=== PATIENT | female | born 1950 | race Caucasian/White ===

== ENCOUNTER → 2018-01-03 12:04 | Outpatient (CLI) | payer MEDICARE, MEDICAID, SELFPAY ==
--- NOTE | 2018-01-03 12:14 | RAD_ITS ---
STUDY: X-RAY - PELVIS AND LEFT HIP REASON FOR EXAM: Female, 67 years old. Left hip pain for several months. TECHNIQUE: Radiological exam, hip, unilateral, with pelvis when performed; 2 or 3 views. COMPARISON: None. FINDINGS: There is a non-specific bowel gas pattern. Normal visualized soft tissue structures. Normal bilateral iliac wings, sacroiliac joints and visualized sacrum. Normal bilateral superior and inferior pubic rami. Normal pubic symphysis. Normal bilateral ischial tuberosities. There is mild medial arthrosis of both hips. RAD/Hip 2-3 Views with Pelvis IMPRESSION: Mild arthrosis of both hips. Electronically Signed: Ari Block MD at 17:35 EST , Service support ,
--- NOTE | 2018-01-03 12:14 | RAD_ITS ---
STUDY: X-RAY - LUMBAR SPINE REASON FOR EXAM: Female, 67 years old. Low back pain. Left leg pain. TECHNIQUE: 5 view(s) of the lumbar spine were obtained. COMPARISON: None FINDINGS: Normal lumbar lordosis. There is grade 1 anterior listhesis at L4-5. There is a dextroscoliosis of the lumbar spine. There is no fracture. There is multilevel endplate spondylosis of the lumbar vertebrae. Disc space narrowing at L4-5. There is no demonstrated fracture. The soft tissue structures are unremarkable. RAD/L/S Spine Min 4 Views IMPRESSION: Degenerative changes of the spine, as detailed above. Electronically Signed: Efrain Fischer MD at 23:26 EST , Service support ,
== END ==
DX: M25.552 Pain in left hip (principal)
CPT/HCPCS: 72100; 72110; 73502

== ENCOUNTER 2018-03-20 11:00 | Outpatient (RCR) | payer MEDICARE, MEDICAID, SELFPAY ==
--- NOTE | 2018-01-30 13:20 | HP.PTEVAL_ITS ---
Patient's Visit Information CATRINA EM is a 67 year old F referred to Physical Therapy by DENIS Cortes PA.LUCILLEHEN with a diagnosis of SPONDYLOLISHESIS ,LUMBAR , RADICULOPATHY LUMBAR ,BILATERAL OA HIPS. Date of Evaluation: 01/30/18 Physical Therapist: Fausto Tobar, PT, - Visit Plan Frequency: 3x /Week Duration: 3 Weeks Plan: Aquatic PT for lumbar ROM ,postural ex's,DLS , LE strengthening,ROM - Subjective Subjective: THIS 67 y/o female presents to physical therapy with lumbar pain with radicular symptoms in left leg. Patient stated symptoms started about 6 months ago with pain and weakness left leg which has progressivly became worse in the past 3 months. Patient pain affect ability to walk and needed to use cane. Symptoms located symmtrical lumbar worse in leftr leg posterior aspect to anterior tibia. Thise symptoms described as ache and parathesia/tingling in leg. Symptoms worse worse with walking standing less than 5min,unable to do stairs,lifting,bending. Symptoms better with rest and sitting. Pain affects sleeping. Coughing /sneezing -. Pain affects qulaity of life to include housework chores.Intially ,patient seen family DR ,did x-rays which showed OA of hip. Recommended to see ortho consult with x-rays showed spondylothesis. SOCAIL : . VOCATION: retired - Pain Bilateral Back Pain Intensity (Out of 10): 8 Pain Intensity Range: 10 Left Lower Extremity Pain Intensity (Out of 10): 8 Pain Intensity Range: 10 - Objective POSTURE: mild foward posture,hips knees flexed. PALAPTION: tender L-S region. NEURO: c/o paratrhesia/tingling ,reflexes L3-4,L4-5,L5-S1 2/3,. SYMMTRIES: WFL. MMT: bilateral hips flexion/abd 3+/5,quads/hams 4-/5 ,ankle 4/5. LUMBAR ROM: flexion mod loss pain.extsnsion mod/severe loss pain ,side glides mod loss. FLEXABLITY : hams min loss. AROM: knee flexion 0-130 ,hip flexion 100 degrees ,ER 60,IR 50 - Goals Goal 1:: Independant with Aquatic PT Goal Time Frame: 4-6 Weeks Goal 2:: Improve posture for ADL'S Goal Time Frame: 4-6 Weeks Goal 3:: Patient decrease lumbar pain and radicular symptoms left leg by 50% or greater to improve function with walking and standing greater than 5 min's Goal Time Frame: 4-6 Weeks Goal 4:: Patient increase strength BLE hips 4-/5,quads/hams 4/5 to improve function Goal Time Frame: 4-6 Weeks Goal 5:: Patient be able to perform ADL'S and housework tasks with mod limiations with asend/descendinf steps safely. Goal Time Frame: 4-6 Weeks - Rehabilitation Potential Physical Therapy Diagnosis: This 67 y/o female presents to physical therapy with lumbar pain with radicular symptoms in leg left ,weakness ,decrease lumbar ROM ,impairs gait and needs cane due to unable to walk or stand less than 5min. Rehabilitation Potential: Fair - Anticipated Interventions Patient/Client Instruction: Educate patient on: Condition, Plan of Care For the Purpose of:: To decrease pain, To increase ROM, To improve muscle performance and motor function, To improve ability to perform ADL's, To increase tolerance to activity/condition/position, To improve performance and independence with ADL's, To improve ability of physical actions for home/ community/work/leisure, To improve health of tissue, To decrease soft tissue restriction, To increase flexibility/ROM, To reduce risk of recurrence, To foster healthy habits, To prevent re-injury, To improve ability to perform tasks related to life management Therapeutic Exercise to Include: Strength training, Postural training, Flexibilty training, In an aquatic setting, Dynamic Lumbar Stabilization For the Purpose of:: To decrease pain, To increase ROM, To improve muscle performance and motor function, To improve ability to perform ADL's, To increase tolerance to activity/condition/position, To improve ability of physical actions for home/community/work/leisure, To improve health of tissue, To decrease soft tissue restriction, To increase flexibility/ROM, To reduce risk of recurrence, To prevent re-injury, To improve ability to perform tasks related to life management Thank you for the opportunity to evaluate your patient. For Medicare and Medicare HMO plans, please review the plan of care and approve it. It will need to be FAXED BACK to us at [phone] for Medicare purposes. Please let me know if there are questions or concerns regarding this plan of care. Physician Signature: Date:
--- NOTE | 2018-02-27 12:31 | HP.PTREVAL_ITS ---
DENIS Cortes, It has been my pleasure to treat CATRINA EM over the last 8 visits for SPONDYLOLISHESIS ,LUMBAR ,RADICULOPATHY LUMBAR ,BILATERAL OA HIPS. Please see the progress note below for an update on the physical therapy plan of care! Subjective: Water ex's helped with managing pain walking further distances and stand 5 min. Able to do ADL'S Objective/Function: POSTURE: mild foward posture. GAIT: ambulates with cane antalgic slow decrease stance time left to right. LUMBAR ROM: flexion mod loss, extension mod /severe loss. MMT: quads/hams RIGHT 4-/5,LEFT 3+/5,HIP FLEXION 3+ /5,ANKLE 4-/5. + SLR. + LUMBAR QUADRANT. side glides mod loss Plan Plan: cont wity poc 5x Goals Goal 1:: Independant with Aquatic PT Goal Time Frame: 4-6 Weeks Goal Progress: Progressing Goal 2:: Improve posture for ADL'S Goal Time Frame: 4-6 Weeks Goal Progress: Progressing Goal 3:: Patient decrease lumbar pain and radicular symptoms left leg by 50% or greater to improve function with walking and standing greater than 5 min's Goal Time Frame: 4-6 Weeks Goal Progress: Progressing Goal 4:: Patient increase strength BLE hips 4-/5,quads/hams 4/5 to improve function Goal Time Frame: 4-6 Weeks Goal Progress: Progressing Goal 5:: Patient be able to perform ADL'S and housework tasks with mod limiations with asend/descendinf steps safely. Goal Time Frame: 4-6 Weeks Goal Progress: Progressing Anticipated Interventions Patient/Client Instruction: Educate patient on: Condition, Plan of Care For the Purpose of:: To decrease pain, To increase ROM, To improve muscle performance and motor function, To improve ability to perform ADL's, To increase tolerance to activity/condition/position, To improve performance and independence with ADL's, To improve ability of physical actions for home/ community/work/leisure, To improve health of tissue, To decrease soft tissue restriction, To increase flexibility/ROM, To reduce risk of recurrence, To foster healthy habits, To prevent re-injury, To improve ability to perform tasks related to life management Therapeutic Exercise to Include: Strength training, Postural training, Flexibilty training, In an aquatic setting, Dynamic Lumbar Stabilization For the Purpose of:: To decrease pain, To increase ROM, To improve muscle performance and motor function, To improve ability to perform ADL's, To increase tolerance to activity/condition/position, To improve ability of physical actions for home/community/work/leisure, To improve health of tissue, To decrease soft tissue restriction, To increase flexibility/ROM, To reduce risk of recurrence, To prevent re-injury, To improve ability to perform tasks related to life management Please do not hesitate to contact me at [phone] by phone or Fax: if you have questions or concerns regarding this new plan of care! Sincerely, Fausto Tobar, PT,
--- NOTE | 2018-03-20 11:55 | HP.PTDCSUM_ITS ---
HP - PT D/C Summary It has been my pleasure to treat CATRINA EM under orders from DENIS Cortes, for the diagnosis of SPONDYLOLISHESIS ,LUMBAR ,RADICULOPATHY LUMBAR ,BILATERAL OA HIPS for a total of 12 visit(s). Discharge Date: 03/20/18 Please see the following information for a summary of their discharge status. - Subjective Subjective: Patient aquatic ex's helped while in water but returns . Ambulated with cane. Symmtrical left right L-S ,below right knee. Difficuly with ADL'S and houseworK,getting Out of tube. Linmited gait with walking.For example use cart when waking in [employer]. - Pain Bilateral Back Pain Intensity (Out of 10): 8 Left Lower Extremity Pain Intensity (Out of 10): 0 RLE Pain Intensity (Out of 10): 8 - Overall Improvement % Improvement: 40 - Objective Objective/Function: POSTURE: mild foward posture. GAIT: ambulates cane anatlgic gait mild foward posture. NEURO: denies parathesia/tingling. MMT: quads/hams 3+/5,hip 3/5,ankle 4-/5 right,left 4-/5. LUMBAR ROM: mod loss pain, extension severe loss pain,side glides mod pain bilateral. AROM: hip AROM 90 DEGREES ,ER 20 DEGREES. - Goals Goal 1:: Independant with Aquatic PT Goal Progress: Progressing Goal 2:: Improve posture for ADL'S Goal Progress: Progressing Goal 3:: Patient decrease lumbar pain and radicular symptoms left leg by 50% or greater to improve function with walking and standing greater than 5 min's Goal Progress: Progressing Goal 4:: Patient increase strength BLE hips 4-/5,quads/hams 4/5 to improve function Goal Progress: Progressing Goal 5:: Patient be able to perform ADL'S and housework tasks with mod limiations with asend/descendinf steps safely. Goal Progress: Progressing - Plan Plan: D/C RTD - D/C Information Discharge Comments: D/C RTW If there are questions or concerns regarding this patient's physical therapy, please feel free to call me at [phone]. Thank you for the referral of this patient. Sincerely, Fausto Tobar, PT,
== END 2018-03-20 19:00 | disposition home or self-care (01) ==
LOC: PT 11:00
PROVIDERS: Visit Provider Physician Assistant Surgical
DX: M43.16 Spondylolisthesis, lumbar region (principal); M54.16 Radiculopathy, lumbar region; M16.0 Bilateral primary osteoarthritis of hip
CPT/HCPCS: 97113; 97162; 97530

== ENCOUNTER → 2018-09-08 10:00 | Outpatient (CLI) | payer MEDICARE, MEDICAID, SELFPAY ==
--- NOTE | 2018-09-08 15:59 | EKG12_ITS ---
Test Reason : Blood Pressure : / mmHG Vent. Rate : 072 BPM Atrial Rate : 072 BPM P-R Int : 216 ms QRS Dur : 062 ms QT Int : 396 ms P-R-T Axes : 034 -02 040 degrees QTc Int : 433 ms Sinus rhythm with 1st degree A-V block Abnormal ECG Confirmed by LESLYE MORGAN ([id number]), production editor SONIA CORDON ([id number]) on 09/11/2018 2:14:46 PM Referred By: Aida Choi Confirmed By:LESLYE MORGAN
[2018-09-08 16:59] LABS: Hematocrit 40.5 % (37-47); Hemoglobin 13.3 g/dl (12.0-15.0); Mean Corp Hgb Conc 32.8 g/gl (32-36); Mean Corpuscular Hgb 28.8 pg (27.0-32.0); Mean Corpuscular Volume 87.7 fL (81-99); Platelet Count 331 K/mm3 (150-450); RBC Distribution Width CV 13.3 % (11.6-14.6); RBC Distribution Width SD 42.3 fl (35.1-43.9); Red Blood Count 4.62 M/mm3 (4.2-5.4); White Blood Count 8.2 K/mm3 (4.4-11.0)
[2018-09-08 17:01] LABS: Scan Indicated on CBC? Y/N NO
[2018-09-08 17:49] LABS: Anion Gap 10 (5-15); BUN 21 mg/dL (7-18); BUN/Creat Ratio 23.8 RATIO (10-20); Chloride 97 mmol/L (98-107); Creatinine, Serum 0.88 mg/dL (0.55-1.02); EST Glomerular Filtration Rate 68 mL/min (>60); Est Glom Filt Rate - Afr Amer 82 mL/min (>60); Glucose 403 mg/dL (74-106); Potassium 3.3 mmol/L (3.5-5.1); Sodium Level 135 mmol/L (136-145)
[2018-09-08 18:05] LABS: Hemoglobin A1c 12.4 % (4.2-6.3)
--- NOTE | 2018-09-12 21:57 | PCM.HP.BLA ---
History and Physical DATE OF SURGERY: 09/14/2018 SCHEDULED PROCEDURE: Open reduction internal fixation right ankle HISTORY OF PRESENT ILLNESS: This is a 68-year-old female who fell and injured her bilateral ankles on September 05, 2018. Patient states she was on her porch when she sprained her left ankle and fractured her right ankle. [facility] by Dr. Aida Choi. Patient was placed in immobilization and it was recommended to undergo an open reduction internal fixation of her right ankle fracture. Patient denies previous trauma or injury. She denies any numbness tingling. Patient states her pain as a 6/10. Patient has a medical history pertinent for type 2 diabetes mellitus, hypertension. She denies any recent chest pain, shortness of breath, fevers chills, or recent infections. Patient currently is nonweightbearing on her right lower extremity due to the fracture. We are obtaining surgical clearance from patient's primary care physician. After discussion with Dr. Aida Choi, the patient would like to proceed with a right ankle open reduction internal fixation. REVIEW OF SYSTEMS: ROS: Const: Denies change in appetite, fever,or weight change. CV: Denies chest pain, heart murmur and irregular heartbeat. Resp: Denies cough, pneumonia, SOB, tuberculosis and wheezing. GI: Denies constipation, diarrhea, difficulty swallowing, heartburn, nausea, bloody stools and vomiting. : Urinary: reports incontinence. Musculo: Reports limp, trouble walking and weakness, but denies leg swelling. Skin: Denies Raynaud's, history of shingles and tattoo. Neuro: Reports ambulatory dysfunction and numbness/tingling but denies dizziness and tremor. Psych: Reports anxiety and stress, but denies insomnia. Pan/Lymph: Denies anemia, bleeding/bruising tendency and past transfusion. Reviewed, no changes. PAST MEDICAL HISTORY: Advance Care Plan: No Advance Directives Effective Date: 01/18/2018 PMH: Medical Problems: Arthritis, Diabetes, High Blood Pressure, Vision Problems/Blind, Hypercholesterolemia Accidents: None Surgical Hx: Section Anesthesia Complications: None Assistive Devices: Glasses Reviewed, no changes. SOCIAL HISTORY: SH: Marital: Single.Occupation: Currently Working.Work Status: Currently Working.Hand Dominance: Left-handed. Personal Habits: Cigarette Use: Never Smoked Cigarettes.Alcohol: Denies use.Drug Use: Denies Use.Enjoy Exercising: Never Exercises. Reviewed, no changes. VITALS: Ht: 62.5 Wt: 150lb Wt k.040 BMI: 27.0 BP: 108/70 Pulse: 70 Resp: 16 T: 97.8 T: 36.6C ALLERGIES: No Known Drug Allergy MEDICATIONS: Tramadol HCL 50 mg 1 by mouth every 4 hours as needed pain, Lisinopril 40 mg 1 by mouth every day, Metformin HCL 1000 mg 1 by mouth twice a day, Atenolol 50 mg 1 tab PO daily, Levemir Flextouch 100 Unit/ML 15 units sq qpm, Hydrochlorothiazide 25 mg 1 tab PO daily, Pravastatin Sodium 10 mg 1 tab PO daily PRE-OP EXAM: General appearance:NORMAL Other: Eyes: Conjunctivae and lids: NORMAL Pupils: ERR Ears, Nose, Mouth, and Throat: NORMAL Other: Inspection of lips, teeth and gums: NORMAL Other: Neck: Examination of neck: no masses noted. Respiratory: Assessment of respiratory effort: NORMAL Other: Auscultation of lungs: clear to auscultation no wheezes, rhonchi or rales. Cardiovascular: Auscultation of heart: regular rate and rhythm, no murmurs, gallops or rubs. Exam of carotid arteries: NORMAL Other: Gastrointestinal: Exam of abdomen: soft, nontender, nondistended bowel sounds present. PHYSICAL EXAMINATION: Patient is currently immobilized with regards to her right ankle/foot. Sensation intact to the toes. Capillary refills less than 2 seconds. There is no tenderness to palpation Right knee. Full range of motion right knee. For detailed examination, please see Dr. Aida Choi's dictated note. Patient currently immobilized after fracture and this was not taken down at preop visit. IMAGING STUDIES: X-rays from [facility] were obtained on September 06, 2018 of the right ankle including 3 views reveals a displaced Melendez B distal fibula fracture with medial clear space widening. No other fractures were appreciated. IMPRESSION: 1. Displaced right ankle distal fibula fracture 2. Left ankle sprain 3. Type 2 diabetes mellitus 4. Hypertension 5. Hypercholesterolemia PLAN: Dr. Aida Choi did discuss and review with the patient all treatment options including surgical versus nonsurgical options. Patient does wish to proceed with the above-stated procedure. Potential risks, benefits, and complications of the procedure were discussed in detail including but not limited to , infection, nerve and blood vessel damage, persistent pain, numbness, tingling, paresthesias, blood clot, pulmonary embolism, and requirement for possible further surgery. The patient expressed full understanding and has no further questions for the doctor. Patient does agree to proceed with the above-stated procedure and has signed the surgery consent form. This dictation was created using voice recognition software. Phonetic and/or grammatical errors may exist.. ___ I have re-examined the patient. There are no clinical changes since date of exam. ___ See progress notes for changes. ___ Dictated on admission Date: Time: Signature:
== END ==
PROVIDERS: Referring Provider Podiatrist Foot & Ankle Surgery; Visit Provider Podiatrist Foot & Ankle Surgery
DX: Z01.818 Encounter for other preprocedural examination (principal); S82.831A Other fracture of upper and lower end of right fibula, initial encounter for closed fracture; S93.402A Sprain of unspecified ligament of left ankle, initial encounter; E11.9 Type 2 diabetes mellitus without complications; E78.00 Pure hypercholesterolemia, unspecified; I10 Essential (primary) hypertension; W17.89XA Other fall from one level to another, initial encounter; Y93.89 Activity, other specified; Y92.008 Other place in unspecified non-institutional (private) residence as the place of occurrence of the external cause; Y99.8 Other external cause status
CPT/HCPCS: 36415; 80048; 83036; 85027; 93005

== ENCOUNTER 2018-10-03 17:19 | Inpatient (IN) | payer MEDICARE, MEDICAID, SELFPAY ==
[2018-09-15 08:22] VITALS: BMI 25.7
[2018-10-03] VITALS (15 sets, daily range): BP systolic 74–179; BP diastolic 59–100; PULSE 54–75; RESP 16–18; TEMP 36.3–37.1; O2SAT 95–100; BMI 25.7
--- NOTE | 2018-10-03 11:35 | EKG12_ITS ---
Test Reason : PRE OP Blood Pressure : / mmHG Vent. Rate : 066 BPM Atrial Rate : 066 BPM P-R Int : 202 ms QRS Dur : 084 ms QT Int : 422 ms P-R-T Axes : 040 016 053 degrees QTc Int : 442 ms Normal sinus rhythm Normal ECG Confirmed by ARIN CARSON, SANAZ ([id number]), web content editor SONIA CORDON ([id number]) on 10/05/2018 3:23:56 PM Referred By: Aida Choi Confirmed By:SANAZ HINKLE MD
[2018-10-03 12:08] LABS: Hematocrit 38.1 % (37-47); Hemoglobin 12.7 g/dl (12.0-15.0); Mean Corp Hgb Conc 33.3 g/gl (32-36); Mean Platelet Vol. 10.2 fl (6.2-12.0); Platelet Count 267 K/mm3 (150-450); RBC Distribution Width CV 12.5 % (11.6-14.6); Red Blood Count 4.38 M/mm3 (4.2-5.4); Scan Indicated on CBC? Y/N NO; White Blood Count 6.9 K/mm3 (4.4-11.0)
[2018-10-03 12:20] LABS: Bedside Glucose 115 mg/dL (70-110)
[2018-10-03 12:22] LABS: Anion Gap 7 (5-15); BUN 15 mg/dL (7-18); BUN/Creat Ratio 30.2 RATIO (10-20); Calcium,Total 8.9 mg/dL (8.5-10.1); Chloride 105 mmol/L (98-107); EST Glomerular Filtration Rate 132 mL/min (>60); Est Glom Filt Rate - Afr Amer 160 mL/min (>60); Estimated Creatinine Clearance 47.14 ml/min; Glucose 129 mg/dL (74-106); Hemoglobin A1c 10.7 % (4.2-6.3); Potassium 3.3 mmol/L (3.5-5.1); Sodium Level 141 mmol/L (136-145)
[2018-10-03] MEDS: Cefazolin 2 GM in 0.9% Normal Saline 100 ML IV (12:53)
--- NOTE | 2018-10-03 13:00 | RAD_ITS ---
STUDY: Fluoroscopic intraoperative images RIGHT ANKLE REASON FOR EXAM: Female, 68 years old. Of reduction internal fixation TECHNIQUE: 8 view(s) of the ankle. COMPARISON: None. FINDINGS: Fluoroscopic intraoperative images 8 images of the right ankle during open reduction internal fixation. There is a side plate cortical screws transfixing the fibula to cortical screws transfixing the medial malleolus. Fluoroscopy time recorded 102.7 seconds. RAD/Ankle 2 Views IMPRESSION: Fluoroscopic imaging of the right ankle during open reduction internal fixation. Electronically Signed: Georgina Brian MD at 19:54 EST Tel , Service support ,
--- NOTE | 2018-10-03 15:41 | RAD_ITS ---
STUDY: X-RAY - RIGHT ANKLE REASON FOR EXAM: Female, 68 years old. [Right ankle TECHNIQUE: 3 view(s) of the ankle. COMPARISON: None. FINDINGS: There are 2 cortical screws transfixing the medial malleolus. There is a side plate and cortical screw transfixing the distal fibula. There is mild soft tissue swelling and subcutaneous gas. Normal visualized talus and calcaneus. The visualized subtalar, talonavicular, calcaneocuboid and tarsal articulations are normal. The soft tissue structures are unremarkable. RAD/Ankle min 3 Views IMPRESSION: Status post open reduction internal fixation of the right ankle. Electronically Signed: Georgina Brian MD at 16:48 EST Tel , Service support ,
--- NOTE | 2018-10-03 15:47 | PCM.IMDPSTOP ---
Immediate Post-Op Note Date of Procedure: 10/03/18 Primary Surgeon/Physician: Aida Choi DPM green building materials distributor: Kapil Cuellar Pre-Operative Diagnosis: R bimalleolar ankle fx Post-Operative Diagnosis: same Surgery/Procedure Performed:: R ankle ORIF Description of Surgical Findings:: see dictation Estimated Blood Loss: minimal Specimen's removed: none Drains: none Type of Anesthesia:: General/Regional - Admit VTE Documentation VTE Present on Admission: No VTE Mechan Device Prophylaxis: SCD's, Knee High SPRING Hose VTE Pharm Prophylaxis ordered?: Yes
--- NOTE | 2018-10-03 15:51 | OP.PN_ITS ---
Immediate Post-Op Note Date of Procedure: 10/03/18 Primary Surgeon/Physician: Aida Choi DPM promotional representative: Kapil Cuellar Pre-Operative Diagnosis: R bimalleolar ankle fx Post-Operative Diagnosis: same Surgery/Procedure Performed:: R ankle ORIF Description of Surgical Findings:: see dictation Estimated Blood Loss: minimal Specimen's removed: none Drains: none Type of Anesthesia:: General/Regional - Admit VTE Documentation VTE Present on Admission: No VTE Mechan Device Prophylaxis: SCD's, Knee High SPRING Hose VTE Pharm Prophylaxis ordered?: Yes
[2018-10-03 16:11] LABS: Bedside Glucose 77 mg/dL (70-110)
--- NOTE | 2018-10-03 17:02 | HP.PCM_ITS ---
History of Present Illness Date of Admission: 10/03/18 Chief Complaint: right ankle fracture s/p ORIF The patient is a 68 year old F with a PMH of diabetes and hypertension. She was admitted for ORIF of a right ankle fracture. Today is POD 0. She was was admitted after surgery as she could not be placed in the Inpatient Rehab Unit until she had been inpatient for a few days. Patient francis nd examined in the PACU. She had no complaints and pain was well controlled. She denied any fever, chills, cough, chest pain, SOB, abdominal pain, diarrhea or vomiting. Review of systems was otherwise negative. She says her blood sugar is usually in the 200s and 300s at home. Her insulin dose was recently increased from 15IU to 20IU by her PCP one week ago. [] Past Medical History Past Medical History (Chronic Problems): Chronic Problems (Last Reviewed 09/15/18 @ 08:34 by Harshal Chung MD) Essential (primary) hypertension (Chronic) Type 2 diabetes mellitus (Chronic) Medical History: Medical History (Last Reviewed 09/15/18 @ 08:34 by Harshal Chung MD) Essential (primary) hypertension (Chronic) I10 Type 2 diabetes mellitus (Chronic) E11.9 Arthritis M19.90 Hyperlipidemia E78.5 Allergies No Known Drug Allergies Allergy (Unknown, Verified 10/02/18 10:19) Other Home Medications: Ambulatory Orders Medication Instructions Recorded Hydrochlorothiazide [Hctz] 25 mg PO DAILY #14 tab 02/20/16 Lisinopril [Zestril] 40 mg PO DAILY 02/20/16 aspirin 81 mg tablet,delayed 81 mg PO DAILY 09/15/18 release metformin 1,000 mg tablet 500 mg PO BID 09/15/18 pravastatin 10 mg tablet 10 mg PO DAILY 09/15/18 tramadol 50 mg tablet 50 mg PO Q6H 09/15/18 Atenolol [Tenormin] 25 mg PO DAILY 10/02/18 Insulin Detemir [Levemir (BKC)] 20 units SC QHS 10/02/18 Meloxicam [Mobic] 7.5 mg PO BID 10/02/18 glyBURIDE [Micronase] 10 mg PO DAILY@0800 10/02/18 Surgical History: Surgical History (Last Reviewed 09/15/18 @ 08:34 by Harshal Chung MD) History of Z98.891 Surgical History: no surgical history Psychiatric History: No pertinent psych hx Lives: With Family Smoking Status: Never smoker Tobacco Use: Non-smoker Alcohol: None Drugs: None - *Family History Maternal Family History: Family History (Last Reviewed 09/15/18 @ 08:34 by Harshal Chung MD) Mother Heart disease Brother Myocardial infarction History Items: No pertinent history Paternal Family History: Family History (Last Reviewed 09/15/18 @ 08:34 by Harshal Chung MD) Mother Heart disease Brother Myocardial infarction History Items: No pertinent history Review of Systems Constitutional: Denies: Chills, Fever, Weight Change Eyes: Denies: Blurred vision HEENT: Denies: Head Aches, Sinus Congestion, Sinus Drainage Cardiovascular: Denies: Chest Pain, Palpitations Respiratory: Denies: Cough, Shortness of Breath, Shortness of breath at rest, Sputum production Gastrointestinal: Denies: Abdominal Pain, Nausea, Vomiting Genitourinary: Denies: Dysuria Musculoskeletal: Denies: Joint Pain, Joint Tenderness Skin: Denies: Rash, Wounds Neurological: Denies: Numbness, Tingling, Focal weakness Psychiatric: Denies: Anxiety, Depression, Homicidal Ideations, Suicidal Ideations Hematologic/ Lymphatic: Denies: Easy Bruising, Easy Bleeding VTE Information - Inpt Only VTE Present on Admission: No VTE Mechan Device Prophylaxis: SCD's VTE Pharm Prophylaxis ordered?: No - Physical Exam General: Alert, Oriented x3, Cooperative HEENT: Atraumatic, PERRLA, EOMI, Normocephalic Oral: Moist Mucosa Neck: Supple, No JVD, Negative Carotid Bruits Lungs: Clear to auscultation, Normal air movement Cardiovascular: Regular rate, Regular Rhythm, Normal S1, Normal S2, No murmurs Abdomen: Bowel Sounds Present, Soft, Non Tender Extremities: No edema, Capillary Refill Less than 3 Seconds, - - RLE in SHARATH bandage, able to wiggle toes Skin: No rashes, No breakdown Musculoskeletal: No Tenderness to Palpation of Joints or Extremities Lymphatic: No Cervical, Supraclavicular, or Inguinal Adenopathy Neurological: Cranial nerves II-XII grossly intact, Neuro grossly intact, Motor Exam 5/5 strength throughout Psych/Mental Status: Normal Affect, Appropriate, Alert and oriented to time, place, person, mood and affect Vital Signs Temp Pulse Resp BP Pulse Ox 97.3 F L 57 L 16 117/87 H 99 10/03/18 15:24 10/03/18 16:00 10/03/18 16:00 10/03/18 16:00 10/03/18 16:00 Oxygen Delivery Method Room Air Weight: 150 lb Body Mass Index (BMI) 25.7 Finger Stick Blood Glucose 387 Laboratory Tests Past 24 Hrs 10/03/18 10/03/18 10/03/18 12:00 12:00 12:00 WBC 6.9 RBC 4.38 Hgb 12.7 Hct 38.1 MCV 87.0 MCH 29.0 MCHC 33.3 RDW 12.5 RDW Differential 39.0 Plt Count 267 MPV 10.2 Sodium 141 Potassium 3.3 L Chloride 105 Carbon Dioxide 29.0 Anion Gap 7 BUN 15 Creatinine 0.50 L Estim Creat Clear Calc 47.14 Est GFR (MDRD) Af Amer 160 Est GFR (MDRD) Non-Af 132 BUN/Creatinine Ratio 30.2 H Glucose 129 H Hemoglobin A1c 10.7 H Calcium 8.9 POC Glucose 10/03/18 10/03/18 16:06 12:05 POC Glucose 77 115 H Diagnostic Data Ankle X-Ray 10/03/18 15:41 IMPRESSION: Status post open reduction internal fixation of the right ankle. Electronically Signed: Georgina Brian MD at 16:48 EST Tel , Service support , Assessment/Plan All Active Problems (Last Reviewed 09/15/18 @ 08:34 by Harshal Chung MD) Preop cardiovascular exam (Acute) 68 y/o female admitted for ORIF of lright ankle fracture which occurred after she slipped and had a fall. 1. Right ankle fracture s/p ORIF * today is POD 0 * pain is well controlled * will give PO norco for pain * consult podiatry- spoke to Dr Choi and she or her PA will follow patient in the hospital * PT/OT consult * 2. Diabetes mellitus * A1C was 10.7 * says her blood sugar runs in the 200s and 300s * lantus was recently increased from 15IU to 20IU * will continue current dose of 20IU lantus; ISS. Accuchecks ACHS. * also on metformin and glyburide; will continue * 3. Hypertension: * BP after surgery was in 170s systolic. * On hydrochlorothiazide 25 mg daily and lisinopril 40 mg daily and atenolol 25mg daily. Will continue. * Hydralazine as needed * 4. Hypokalemia. Potassium is 3.3. We will replace and monitor. DVT prophylaxis: SCDs for today. WIll start SC lovenox tomorrow Disposition: for placement in rehab unit. Code Visit Inpatient E&M: 84597 Init Hosp L3
--- NOTE | 2018-10-03 17:32 | PCM.OPRPT ---
Report of Operation Date of Procedure: 10/03/18 Pre-Operative Diagnosis: R bimalleolar ankle fx Post-Operative Diagnosis: same Surgery/Procedure Performed:: R ankle ORIF Description of Surgical Findings:: see dictation family support coordinator: Kapil Cuellar Type of Anesthesia:: General/Regional Specimen's removed: none Drains: none Estimated Blood Loss (mL): minimal Description of Procedure: Indications: Pt is a 68 yo F who sustained a R bimalleolar fracture after a fall at home on September 06, 2018. Pt was seen in my clinic for follow up with family. Surgical intervention was agreed upon. Pt was seen by a primary care physician for pre-operative clearance and risk stratification. Given her uncontrolled diabetes and other medical co-morbidities, she was referred to cardiology for clearance. This delayed her surgery for a couple weeks but she was given medical clearance for surgery and presents today for intervention. She understands her risks of infection, delayed or nonhealing and skin complications are increased due to her diabetes being poorly controlled. she understands tighter control (< 200 BS) in the post operative period along with strict compliance with weightbearing status are imperative to her healing potential and beneficial to her overall health. All risks, complications and alternatives were discussed with the patient and her family, an informed consent was signed. No guarantees were given. We also discussed the post operative course. We agreed that post operatively she would benefit from additional physical therapy to remain NWB RLE and would likely be admitted to Acute Rehab or for inpatient evaluation by PT and then TCU. Procedure: On October 03, 2018, Iesha Phillips was visually and verbally identified in the pre operative holding area. The consent was again reviewed as were the risks, complications and alternatives. Patient agreed to proceed with the proposed surgery. The right leg was marked as the correct operative extremity. The patient was brought into the operating room and placed on the operating room table in a lazy lateral position After induction by anesthesia, A surgical time out was performed and all present were in agreement. A pneumatic thigh tourniquet was placed. At this time the right lower extremity was prepped and draped in the normal sterile fashion. After exsanguination with an Esmarch the tourniquet was inflated to 300mmHg. At this time attention was turned to the right lateral ankle A curvilinear incision was made along the distal fibula with a #15 blade. The incision was bluntly carried deep through the subcutaneous tissue with careful attention paid to all bleeders, which were clamped or tied or bovied as necessary. All vital neurovascular structures were retracted. The peroneals tendons were also retracted. The distal fibular fracture was identified. Using curettes and a #15 blade all soft tissue was removed from the fracture line. The fracture was reduced. The reduction was held bone reduction clamps. This was confirmed on intraoperative fluoroscopy and directly visualized. Adequate fibula length was noted. A Sophia 2.7 interfragmentary screw was then placed per AO technique and perpendicular to the fracture line from distal lateral to the proximal medial. A good hold was noted. This was confirmed on intraoperative fluoroscopy. The bone reduction clamp was then removed and a distal fibular plate was placed with a combination of locking and nonlocking screws. The plate position and screw lengths were confirmed on intraoperative fluoroscopy as well as direct visualization. Attention was the turned to the medial malleolar fracture which was visualized on intraoperative fluoroscopy. Using intraoperative fluoroscopy, two guidewires were placed into the medial malleolar fragment and then into the tibia. A stab incision was made. Per AO technique two 4.0 cannulated screws were then placed under intraoperative fluoroscopy with good reduction of the fracture noted. The guidewires were removed. At this time the incisions were flushed with copious amounts of normal sterile saline and closure was initiated. The deep layers were closed with 2.0 vicryl, subcutaneous tissues wre closed with 3.0 vicryl and skin was closed with 3.0 prolene. Adaptic and dry sterile dressings were placed over the incisions. A multilayer compressive dressing was applied along with a well padded posterior splint. Total tourniquet time was 96 minutes with immediate capillary refill noted to all digits upon deflation. The patient tolerated anesthesia and the procedure well. The patient was transported to the PACU by myself an a member of the anesthesia team with AVSS and NVS of the RLE equal to pre-operative levels. Pt will received a R lower sciatic block by anesthesia in pacu. Pt will remain in-house on the hospitalist service for post operative physical therapy evaluation, management of co-morbidities and transfer to either Acute Rehab or TCU pending evaluation. At the end of the case all needle, sponge and instrument counts were found to be correct. Use of intraoperative fluoroscopy was utilized throughout the case, > 1 hours, and was imperative to my decision making process for the fracture reduction and placement and length of all screws and plates. Grafts/Implants Used: Sophia Variax plate and screws - Complications none - Admit VTE Documentation VTE Present on Admission: No VTE Mechan Device Prophylaxis: SCD's, Knee High SPRING Hose VTE Pharm Prophylaxis ordered?: Yes
[2018-10-03] MEDS: HYDROcodone Bitartrate/Apap 5/325 Tablet PO (19:17)
[2018-10-03] MEDS: hydrALAZINE 20 MG/ML Vial 10 MG IV (20:06)
[2018-10-03] MEDS: 0.9% NaCl Peripheral Flush Adult/Peds IV ×2 (20:07→20:11)
[2018-10-03] MEDS: Insulin Lispro 100 UNIT/ML INSULN.PEN SQ (21:57)
[2018-10-03] MEDS: Pravastatin 20 MG Tablet 10 MG PO (21:57)
[2018-10-03 22:11] LABS: Bedside Glucose 315 mg/dL (70-110)
[2018-10-03] MEDS: proMETHazine 25 MG/ML Syringe IV (23:10)
[2018-10-03] MEDS: Morphine 4 MG/ML Syringe IV (23:10)
[2018-10-03] MEDS: MELATONIN 3 MG TABLET 6 MG PO (23:11)
[2018-10-04 03:23] VITALS: BP 102/56; PULSE 85; RESP 18; TEMP 37.6; O2SAT 95
[2018-10-04] MEDS: HYDROcodone Bitartrate/Apap 5/325 Tablet PO ×2 (04:43→10:14)
[2018-10-04 06:03] LABS: Absolute Lymphocyte Count 1.65 X10^3/ul (0.83-4.51); Absolute Neutrophil Count 7.5 X10^3/uL (2.0-7.7); Basophil# 0.01 X10^3/uL; Basophil% 0.1 % (0-1); Eosinophil# 0.02 X10^3/uL; Eosinophils% 0.2 % (0-5); Hematocrit 33.3 % (37-47); Hemoglobin 11.1 g/dl (12.0-15.0); Lymphocyte # 1.65 X10^3/ul (4.0); Mean Corp Hgb Conc 33.3 g/gl (32-36); Mean Corpuscular Hgb 29.1 pg (27.0-32.0); Mean Corpuscular Volume 87.4 fL (81-99); Mean Platelet Vol. 10.6 fl (6.2-12.0); Monocyte# 0.49 X10^3/uL; Neutrophil # 7.53 X10^3/uL (2.7-7.7); Neutrophil % 77.6 % (47-70); Platelet Count 236 K/mm3 (150-450); RBC Distribution Width CV 12.5 % (11.6-14.6); RBC Distribution Width SD 38.7 fl (35.1-43.9); Red Blood Count 3.81 M/mm3 (4.2-5.4); White Blood Count 9.7 K/mm3 (4.4-11.0)
[2018-10-04 06:11] LABS: POSITIVE COUNT NO; POSITIVE DIFFERENTIAL NO; POSITIVE MORPHOLOGY NO
[2018-10-04 06:22] LABS: Anion Gap 8 (5-15); BUN 17 mg/dL (7-18); BUN/Creat Ratio 32.7 RATIO (10-20); Calcium,Total 8.2 mg/dL (8.5-10.1); Chloride 104 mmol/L (98-107); Creatinine, Serum 0.52 mg/dL (0.55-1.02); EST Glomerular Filtration Rate 125 mL/min (>60); Est Glom Filt Rate - Afr Amer 151 mL/min (>60); Estimated Creatinine Clearance 47.14 ml/min; Glucose 161 mg/dL (74-106); Potassium 3.4 mmol/L (3.5-5.1); Sodium Level 138 mmol/L (136-145)
[2018-10-04] MEDS: Insulin Lispro 100 UNIT/ML INSULN.PEN SQ (06:36)
[2018-10-04] MEDS: 0.9% NaCl Peripheral Flush Adult/Peds IV (07:00)
[2018-10-04 07:01] LABS: Bedside Glucose 150 mg/dL (70-110)
[2018-10-04] MEDS: Morphine 4 MG/ML Syringe IV (07:01)
[2018-10-04 07:25] VITALS: BP 105/68; PULSE 78; RESP 18; TEMP 36.9; O2SAT 98
[2018-10-04] MEDS: Aspirin E.C. 81 MG Tablet PO (07:37)
--- NOTE | 2018-10-04 08:25 | PCM.PN.HOSP ---
Subjective: Patient is a 68-year-old female admitted with right bimalleolar ankle fracture who underwent right ankle ORIF on 10/03/2018 by podiatry patient was admitted to the medical service for management of patient medical issues postop She has seen apparently did drop her blood pressure with morphine she received this a.m. Glucose control remains labile. Potassium is 3.4 this a.m. Objective: GENERAL: cooperative HEENT: Atraumatic; EYES; Anicteric, NECK; supple, normal thyroid, RESPIRATORY: Diminished to auscultation bilaterally, CARDIOVASCULAR: Regular S1 S2, no audible murmurs GI: soft, non-tender, normoactive bowel sounds, : No Renal angle tenderness; EXTREMITIES: Right ankle in surgical dressing NEURO: Awake; no lateralizing signs. SKIN: No Rash PSYCH; Normal affect Vitals/I&O's: Vital Signs Temp Pulse Resp BP Pulse Ox 98.5 F 78 18 105/68 98 10/04/18 07:25 10/04/18 07:25 10/04/18 07:25 10/04/18 07:25 10/04/18 07:25 Oxygen Delivery Method Room Air Weight: 68.039 kg Body Mass Index (BMI) 25.7 Finger Stick Blood Glucose 77 Intake and Output for Last 24 Hours 10/02/18 10/03/18 10/04/18 23:59 23:59 23:59 Intake Total 1850 / 1850 914 / 914 Output Total 1350 / 1350 Balance 1850 / 1850 -436 / -436 Laboratory Results 10/03/18 12:00: WBC 6.9, RBC 4.38, Hgb 12.7, Hct 38.1, MCV 87.0, MCH 29.0, MCHC 33.3, RDW 12.5, RDW Differential 39.0, Plt Count 267, MPV 10.2 10/03/18 12:00: Sodium 141, Potassium 3.3 L, Chloride 105, Carbon Dioxide 29.0, Anion Gap 7, BUN 15, Creatinine 0.50 L, Estim Creat Clear Calc 47.14, Est GFR (MDRD) Af Amer 160, Est GFR (MDRD) Non-Af 132, BUN/Creatinine Ratio 30.2 H, Glucose 129 H, Calcium 8.9 10/03/18 12:00: Hemoglobin A1c 10.7 H 10/03/18 12:05: POC Glucose 115 H 10/03/18 16:06: POC Glucose 77 10/03/18 21:53: POC Glucose 315 H 10/04/18 05:40: WBC 9.7, RBC 3.81 L, Hgb 11.1 L, Hct 33.3 L, MCV 87.4, MCH 29.1, MCHC 33.3, RDW 12.5, RDW Differential 38.7, Plt Count 236, MPV 10.6, Immature Gran % (Auto) 0.100, Neut % (Auto) 77.6 H, Lymph % (Auto) 17.0 L, [place] % (Auto) 5.0, Eos % (Auto) 0.2, Baso % (Auto) 0.1, Absolute Neuts (auto) 7.5, Absolute Lymphs (auto) 1.65, Total Counted Not Reportable 10/04/18 05:40: Sodium 138, Potassium 3.4 L, Chloride 104, Carbon Dioxide 26.0, Anion Gap 8, BUN 17, Creatinine 0.52 L, Estim Creat Clear Calc 47.14, Est GFR (MDRD) Af Amer 151, Est GFR (MDRD) Non-Af 125, BUN/Creatinine Ratio 32.7 H, Glucose 161 H, Calcium 8.2 L 10/04/18 06:34: POC Glucose 150 H Current Medications Hydrocodone Bitart/Acetaminophen (Anza 5mg-325mg) 2 tablet PO Q6H PRN PRN PRN Reason: SEVERE PAIN (6-10/10) Last Admin: 10/04/18 04:43 Dose: 2 tablet Aspirin (Ecotrin) 81 mg PO DAILY@0800 [facility] Last Admin: 10/04/18 07:37 Dose: 81 mg Atenolol (Tenormin (Beta Mary)) 25 mg PO DAILY [facility] Dextrose (D50w Syringe) 0 gm IV X1 PRN; Protocol PRN Reason: Hypoglycemia Glucagon () 1 mg IM .X1 PRN PRN Reason: Hypoglycemia Glyburide (Micronase) 10 mg PO DAILY@0800 [facility] Last Admin: 10/04/18 07:37 Dose: 10 mg Hydralazine HCl (Apresoline Iv) 10 mg IV Q6H PRN PRN PRN Reason: BLOOD PRESSURE ELEVATION Last Admin: 10/03/18 20:06 Dose: 10 mg Hydrochlorothiazide (Hctz) 25 mg PO DAILY [facility] Influenza Virus Vaccine Quadrival (Fluarix/Fluzone) 0.5 ml IM .ONCE ONE Stop: 10/04/18 10:01 Insulin Glargine (Lantus (Bkc)) 20 units SC QHS [facility] Last Admin: 10/03/18 21:58 Dose: 20 units Insulin Human Lispro (Humalog Kwikpen (Bkc)) 0 unit SQ ACHS [facility]; Protocol Last Admin: 10/04/18 06:36 Dose: 3 units Lisinopril (Zestril) 40 mg PO DAILY [facility] Magnesium Hydroxide (Milk Of Magnesia) 30 ml PO DAILY PRN PRN PRN Reason: Constipation Melatonin (Melatonin) 6 mg PO QHS PRN PRN PRN Reason: SLEEP Last Admin: 10/03/18 23:11 Dose: 6 mg Metformin HCl (Glucophage) 500 mg PO BIDCM [facility] Last Admin: 10/04/18 07:37 Dose: 500 mg Morphine Sulfate () 4 mg IV Q3H PRN PRN PRN Reason: SEVERE PAIN (6-10/10) Last Admin: 10/04/18 07:01 Dose: 4 mg Pravastatin Sodium (Pravachol) 10 mg PO DAILY@2200 [facility] Last Admin: 10/03/18 21:57 Dose: 10 mg Promethazine HCl (Phenergan) 6.25 - 12.5 mg IV Q4H PRN PRN PRN Reason: Nausea Last Admin: 10/03/18 23:10 Dose: 12.5 mg Sodium Chloride () 5 - 15 ml IV UD PRN PRN Reason: SALINE FLUSH Last Admin: 10/04/18 07:00 Dose: 10 ml Medical Necessity - Tobacco Use Smoking Status: Never smoker Tobacco Use: Non-smoker Assessment/Plan All Active Problems (Last Reviewed 09/15/18 @ 08:34 by Harshal Chung MD) Preop cardiovascular exam (Acute) Patient is a 68-year-old female admitted with right bimalleolar ankle fracture who underwent right ankle ORIF on 10/03/2018 by podiatry patient was admitted to the medical service for management of patient medical issues postop 1. Status post right ankle ORIF on 10/03/2018 on account of right bimalleolar ankle fracture patient postoperative orders regarding pain management as well as PT and OT defer to podiatry surgery 2. Hypertension-blood pressure controlled, home medications continued with dose adjustment as needed 3. Dyslipidemia-patient is on statin therapy, continued at home dose 4. Diabetes mellitus type II: Controlled ON oral hypoglycemics in addition to long acting insulin, Accu-Cheks a.c. and at bedtime and covered with sliding scale insulin 5. DVT prophylaxis SC Lovenox Active Medications Hydrocodone Bitart/Acetaminophen (Anza 5mg-325mg) 2 tablet PO Q6H PRN PRN PRN Reason: SEVERE PAIN (6-10/10) Last Admin: 10/04/18 04:43 Dose: 2 tablet Aspirin (Ecotrin) 81 mg PO DAILY@0800 [facility] Last Admin: 10/04/18 07:37 Dose: 81 mg Atenolol (Tenormin (Beta Mary)) 25 mg PO DAILY [facility] Dextrose (D50w Syringe) 0 gm IV X1 PRN; Protocol PRN Reason: Hypoglycemia Glucagon () 1 mg IM .X1 PRN PRN Reason: Hypoglycemia Glyburide (Micronase) 10 mg PO DAILY@0800 [facility] Last Admin: 10/04/18 07:37 Dose: 10 mg Hydralazine HCl (Apresoline Iv) 10 mg IV Q6H PRN PRN PRN Reason: BLOOD PRESSURE ELEVATION Last Admin: 10/03/18 20:06 Dose: 10 mg Hydrochlorothiazide (Hctz) 25 mg PO DAILY [facility] Influenza Virus Vaccine Quadrival (Fluarix/Fluzone) 0.5 ml IM .ONCE ONE Stop: 10/04/18 10:01 Insulin Glargine (Lantus (Bkc)) 20 units SC QHS [facility] Last Admin: 10/03/18 21:58 Dose: 20 units Insulin Human Lispro (Humalog Kwikpen (Bkc)) 0 unit SQ ACHS [facility]; Protocol Last Admin: 10/04/18 06:36 Dose: 3 units Lisinopril (Zestril) 40 mg PO DAILY [facility] Magnesium Hydroxide (Milk Of Magnesia) 30 ml PO DAILY PRN PRN PRN Reason: Constipation Melatonin (Melatonin) 6 mg PO QHS PRN PRN PRN Reason: SLEEP Last Admin: 10/03/18 23:11 Dose: 6 mg [facility] Last Admin: 10/04/18 07:37 Dose: 500 mg Morphine Sulfate () 4 mg IV Q3H PRN PRN PRN Reason: SEVERE PAIN (6-1010) Last Admin: 10/04/18 07:01 Dose: 4 mg Pravastatin Sodium (Pravachol) 10 mg PO DAILY@2200 [facility] Last Admin: 10/03/18 21:57 Dose: 10 mg Promethazine HCl (Phenergan) 6.25 - 12.5 mg IV Q4H PRN PRN PRN Reason: Nausea Last Admin: 10/03/18 23:10 Dose: 12.5 mg Sodium Chloride () 5 - 15 ml IV UD PRN PRN Reason: SALINE FLUSH Last Admin: 10/04/18 07:00 Dose: 10 ml Code Visit Inpatient E&M: 01382 Subs Hosp L3
--- NOTE | 2018-10-04 08:28 | PN_ITS ---
Subjective: Patient is a 68-year-old female admitted with right bimalleolar ankle fracture who underwent right ankle ORIF on 10/03/2018 by podiatry patient was admitted to the medical service for management of patient medical issues postop She has seen apparently did drop her blood pressure with morphine she received this a.m. Glucose control remains labile. Potassium is 3.4 this a.m. Objective: GENERAL: cooperative HEENT: Atraumatic; EYES; Anicteric, NECK; supple, normal thyroid, RESPIRATORY: Diminished to auscultation bilaterally, CARDIOVASCULAR: Regular S1 S2, no audible murmurs GI: soft, non-tender, normoactive bowel sounds, : No Renal angle tenderness; EXTREMITIES: Right ankle in surgical dressing NEURO: Awake; no lateralizing signs. SKIN: No Rash PSYCH; Normal affect Vitals/I&O's: Vital Signs Temp Pulse Resp BP Pulse Ox 98.5 F 78 18 105/68 98 10/04/18 07:25 10/04/18 07:25 10/04/18 07:25 10/04/18 07:25 10/04/18 07:25 Oxygen Delivery Method Room Air Weight: 68.039 kg Body Mass Index (BMI) 25.7 Finger Stick Blood Glucose 77 Intake and Output for Last 24 Hours 10/02/18 10/03/18 10/04/18 23:59 23:59 23:59 Intake Total 1850 / 1850 914 / 914 Output Total 1350 / 1350 Balance 1850 / 1850 -436 / -436 Laboratory Results 10/03/18 12:00: WBC 6.9, RBC 4.38, Hgb 12.7, Hct 38.1, MCV 87.0, MCH 29.0, MCHC 33.3, RDW 12.5, RDW Differential 39.0, Plt Count 267, MPV 10.2 10/03/18 12:00: Sodium 141, Potassium 3.3 L, Chloride 105, Carbon Dioxide 29.0, Anion Gap 7, BUN 15, Creatinine 0.50 L, Estim Creat Clear Calc 47.14, Est GFR (MDRD) Af Amer 160, Est GFR (MDRD) Non-Af 132, BUN/Creatinine Ratio 30.2 H, Glucose 129 H, Calcium 8.9 10/03/18 12:00: Hemoglobin A1c 10.7 H 10/03/18 12:05: POC Glucose 115 H 10/03/18 16:06: POC Glucose 77 10/03/18 21:53: POC Glucose 315 H 10/04/18 05:40: WBC 9.7, RBC 3.81 L, Hgb 11.1 L, Hct 33.3 L, MCV 87.4, MCH 29.1, MCHC 33.3, RDW 12.5, RDW Differential 38.7, Plt Count 236, MPV 10.6, Immature Gran % (Auto) 0.100, Neut % (Auto) 77.6 H, Lymph % (Auto) 17.0 L, [place] % (Auto) 5.0, Eos % (Auto) 0.2, Baso % (Auto) 0.1, Absolute Neuts (auto) 7.5, Absolute Lymphs (auto) 1.65, Total Counted Not Reportable 10/04/18 05:40: Sodium 138, Potassium 3.4 L, Chloride 104, Carbon Dioxide 26.0, Anion Gap 8, BUN 17, Creatinine 0.52 L, Estim Creat Clear Calc 47.14, Est GFR (MDRD) Af Amer 151, Est GFR (MDRD) Non-Af 125, BUN/Creatinine Ratio 32.7 H, Glucose 161 H, Calcium 8.2 L 10/04/18 06:34: POC Glucose 150 H Current Medications Hydrocodone Bitart/Acetaminophen ([place] 5mg-325mg) 2 tablet PO Q6H PRN PRN PRN Reason: SEVERE PAIN (6-10/10) Last Admin: 10/04/18 04:43 Dose: 2 tablet Aspirin (Ecotrin) 81 mg PO DAILY@0800 [facility] Last Admin: 10/04/18 07:37 Dose: 81 mg Atenolol (Tenormin (Beta Mary)) 25 mg PO DAILY [facility] Dextrose (D50w Syringe) 0 gm IV X1 PRN; Protocol PRN Reason: Hypoglycemia Glucagon () 1 mg IM .X1 PRN PRN Reason: Hypoglycemia Glyburide (Micronase) 10 mg PO DAILY@0800 [facility] Last Admin: 10/04/18 07:37 Dose: 10 mg Hydralazine HCl (Apresoline Iv) 10 mg IV Q6H PRN PRN PRN Reason: BLOOD PRESSURE ELEVATION Last Admin: 10/03/18 20:06 Dose: 10 mg Hydrochlorothiazide (Hctz) 25 mg PO DAILY [facility] Influenza Virus Vaccine Quadrival (Fluarix/Fluzone) 0.5 ml IM .ONCE ONE Stop: 10/04/18 10:01 Insulin Glargine (Lantus (Bkc)) 20 units SC QHS [facility] Last Admin: 10/03/18 21:58 Dose: 20 units Insulin Human Lispro (Humalog Kwikpen (Bkc)) 0 unit SQ ACHS [facility]; Protocol Last Admin: 10/04/18 06:36 Dose: 3 units Lisinopril (Zestril) 40 mg PO DAILY [facility] Magnesium Hydroxide (Milk Of Magnesia) 30 ml PO DAILY PRN PRN PRN Reason: Constipation Melatonin (Melatonin) 6 mg PO QHS PRN PRN PRN Reason: SLEEP Last Admin: 10/03/18 23:11 Dose: 6 mg Metformin HCl (Glucophage) 500 mg PO BIDCM [facility] Last Admin: 10/04/18 07:37 Dose: 500 mg Morphine Sulfate () 4 mg IV Q3H PRN PRN PRN Reason: SEVERE PAIN (6-10/10) Last Admin: 10/04/18 07:01 Dose: 4 mg Pravastatin Sodium (Pravachol) 10 mg PO DAILY@2200 [facility] Last Admin: 10/03/18 21:57 Dose: 10 mg Promethazine HCl (Phenergan) 6.25 - 12.5 mg IV Q4H PRN PRN PRN Reason: Nausea Last Admin: 10/03/18 23:10 Dose: 12.5 mg Sodium Chloride () 5 - 15 ml IV UD PRN PRN Reason: SALINE FLUSH Last Admin: 10/04/18 07:00 Dose: 10 ml Medical Necessity - Tobacco Use Smoking Status: Never smoker Tobacco Use: Non-smoker Assessment/Plan All Active Problems (Last Reviewed 09/15/18 @ 08:34 by Harshal Chung MD) Preop cardiovascular exam (Acute) Patient is a 68-year-old female admitted with right bimalleolar ankle fracture who underwent right ankle ORIF on 10/03/2018 by podiatry patient was admitted to the medical service for management of patient medical issues postop 1. Status post right ankle ORIF on 10/03/2018 on account of right bimalleolar ankle fracture patient postoperative orders regarding pain management as well as PT and OT defer to podiatry surgery 2. Hypertension-blood pressure controlled, home medications continued with dose adjustment as needed 3. Dyslipidemia-patient is on statin therapy, continued at home dose 4. Diabetes mellitus type II: Controlled ON oral hypoglycemics in addition to long acting insulin, Accu-Cheks a.c. and at bedtime and covered with sliding scale insulin 5. DVT prophylaxis SC Lovenox Active Medications Hydrocodone Bitart/Acetaminophen ([place] 5mg-325mg) 2 tablet PO Q6H PRN PRN PRN Reason: SEVERE PAIN (6-10/10) Last Admin: 10/04/18 04:43 Dose: 2 tablet Aspirin (Ecotrin) 81 mg PO DAILY@0800 [facility] Last Admin: 10/04/18 07:37 Dose: 81 mg Atenolol (Tenormin (Beta Mary)) 25 mg PO DAILY [facility] Dextrose (D50w Syringe) 0 gm IV X1 PRN; Protocol PRN Reason: Hypoglycemia Glucagon () 1 mg IM .X1 PRN PRN Reason: Hypoglycemia Glyburide (Micronase) 10 mg PO DAILY@0800 [facility] Last Admin: 10/04/18 07:37 Dose: 10 mg Hydralazine HCl (Apresoline Iv) 10 mg IV Q6H PRN PRN PRN Reason: BLOOD PRESSURE ELEVATION Last Admin: 10/03/18 20:06 Dose: 10 mg Hydrochlorothiazide (Hctz) 25 mg PO DAILY [facility] Influenza Virus Vaccine Quadrival (Fluarix/Fluzone) 0.5 ml IM .ONCE ONE Stop: 10/04/18 10:01 Insulin Glargine (Lantus (Bkc)) 20 units SC QHS [facility] Last Admin: 10/03/18 21:58 Dose: 20 units Insulin Human Lispro (Humalog Kwikpen (Bkc)) 0 unit SQ ACHS [facility]; Protocol Last Admin: 10/04/18 06:36 Dose: 3 units Lisinopril (Zestril) 40 mg PO DAILY [facility] Magnesium Hydroxide (Milk Of Magnesia) 30 ml PO DAILY PRN PRN PRN Reason: Constipation Melatonin (Melatonin) 6 mg PO QHS PRN PRN PRN Reason: SLEEP Last Admin: 10/03/18 23:11 Dose: 6 mg [facility]) [facility] Last Admin: 10/04/18 07:37 Dose: 500 mg Morphine Sulfate () 4 mg IV Q3H PRN PRN PRN Reason: SEVERE PAIN (6-1010) Last Admin: 10/04/18 07:01 Dose: 4 mg Pravastatin Sodium (Pravachol) 10 mg PO DAILY@2200 [facility] Last Admin: 10/03/18 21:57 Dose: 10 mg Promethazine HCl (Phenergan) 6.25 - 12.5 mg IV Q4H PRN PRN PRN Reason: Nausea Last Admin: 10/03/18 23:10 Dose: 12.5 mg Sodium Chloride () 5 - 15 ml IV UD PRN PRN Reason: SALINE FLUSH Last Admin: 10/04/18 07:00 Dose: 10 ml Code Visit Inpatient E&M: 42795 Subs Hosp L3
[2018-10-04] MEDS: Atenolol 25 MG Tablet PO (10:07)
[2018-10-04] MEDS: Lisinopril 40 MG Tablet PO (10:07)
[2018-10-04] MEDS: hydroCHLOROthiazide 25 MG Tablet PO (10:08)
[2018-10-04] MEDS: Enoxaparin 40 MG/0.4 ML Syringe SC (10:10)
[2018-10-04 10:12] VITALS: BP 120/64; PULSE 81; RESP 18; TEMP 37.2; O2SAT 98
--- NOTE | 2018-10-04 10:47 | CASEMGMT ---
Addendum entered by Beatriz Sterling 10/04/18 13:59: SW called [facility] again, they can take pt in rehab today. SW let pt know, she is agreeable to this. SW also let Dr. Guardado know so he can discharge pt. YESENIA Day, COMPUTATOR Original Note: Addendum entered by Beatriz Sterling 10/04/18 12:37: Pt has had PT/OT, SW spoke w/pt again. She would like a referral to rehab made. SW called rehab, message left w/referral, will wait for a call back. YESENIA Day, COMPUTATOR Original Note: Addendum entered by Beatriz Sterling 10/04/18 11:46: Pt also is interested in completing POA paperwork tomorrow, SW will follow up w/her on this tomorrow. YESENIA Day, COMPUTATOR Original Note: SW received referral as pt may be a possible rehab placement. SW spoke w/pt in room, pt is alert and oriented. Pt lives alone in a trailer, a few steps to get in. Pt fell in August but due to cardiac issues was not able to have surgery until yesterday. Prior to her fall, pt was independent w/ADL's. Pt has been managing at home as best she can in a wheelchair, pt has not been using any other DME. Pt has been sponge bathing, making TV dinners. Family has not really been able to help, daughter works two jobs and pt's brother has a bad back. They have been getting groceries for pt when able as pt cannot drive at present. SW spoke w/pt about discharge options. Pt would like to go to inpt rehab if possible, SW educated her about what to expect in inpt rehab. SW explained that therapy will be in to see her, and once they see her SW will check in w/her again and make the referral to inpt rehab is appropriate. Pt states understanding. SW will continue to follow for likely referral to inpt rehab. YESENIA Day, COMPUTATOR
[2018-10-04 11:30] LABS: Bedside Glucose 128 mg/dL (70-110)
--- NOTE | 2018-10-04 14:22 | PCM.DC ---
You will use the following diet at home:: Calorie/Carbohydrate Controlled (specify 1200, 1400, etc) - 1800 Your food should be the consistency of: Regular Discharge Activity: Return to Normal Activity Allergies/Adverse Reactions: Allergies No Known Drug Allergies Allergy (Unknown, Verified 10/02/18 10:19) Other Medications to take at Discharge Hydrochlorothiazide [Hctz] 25 mg PO DAILY #14 tab 02/20/16 Lisinopril [Zestril] 40 mg PO DAILY 02/20/16 aspirin 81 mg tablet,delayed release 81 mg PO DAILY 09/15/18 metformin 1,000 mg tablet 500 mg PO BID 09/15/18 pravastatin 10 mg tablet 10 mg PO DAILY 09/15/18 Atenolol [Tenormin] 25 mg PO DAILY 10/02/18 Insulin Detemir [Levemir FlexPen] 20 units SC QHS 10/02/18 Meloxicam [Mobic] 7.5 mg PO BID 10/02/18 glyBURIDE [Micronase] 10 mg PO DAILY@0800 10/02/18 Enoxaparin [Lovenox] 40 mg SC DAILY@0600 syringe 10/04/18 Glucagon 1 mg IM .X1 PRN syringe 10/04/18 Hydrocodone Bitart/Apap 5-325 [[place] 5/325] 2 tablet PO Q6H PRN PRN 5 Days tablet 10/04/18 Insulin Lispro [Humalog KwikPen] See Protocol SQ ACHS insuln.pen 10/04/18 Magnesium Hydroxide [Milk Of Magnesia] 30 ml PO DAILY PRN PRN udc 10/04/18 Melatonin 6 mg PO QHS PRN PRN tablet 10/04/18 Potassium Chloride [K-Dur] 20 meq PO BIDCM tablet 10/04/18 Primary Care Physician: Lucretia Lorenzana [Primary Care Provider] - Test Results: Test results from this visit will be discussed in further detail at your follow-up appointment, if applicable. Proposed Discharge Date: 10/04/18
--- NOTE | 2018-10-04 14:27 | DS.PCM_ITS ---
Discharge Date and Diagnosis Date of Admission: 10/03/18 Date of Discharge: 10/04/18 - Primary Discharge Diagnosis Status post right ankle ORIF on 10/03/2018 - Secondary Discharge Diagnosis Chronic Problems (Last Reviewed 09/15/18 @ 08:34 by Harshal Chung MD) Essential (primary) hypertension (Chronic) Type 2 diabetes mellitus (Chronic) Hospital Course and Treatment Imaging Results: Clinical Impression(s) from Imaging Studies Ankle X-Ray 10/03/18 13:00 IMPRESSION: Fluoroscopic imaging of the right ankle during open reduction internal fixation. Electronically Signed: Georgina Brian MD at 19:54 EST Tel , Service support , Ankle X-Ray 10/03/18 15:41 IMPRESSION: Status post open reduction internal fixation of the right ankle. Electronically Signed: Georgina Brian MD at 16:48 EST Tel , Service support , Summary of Care Provided: Patient is a 68-year-old female admitted with right bimalleolar ankle fracture who underwent right ankle ORIF on 10/03/2018 by podiatry patient was admitted to the medical service for management of patient medical issues postop 1. Status post right ankle ORIF on 10/03/2018 on account of right bimalleolar ankle fracture patient postoperative orders regarding pain management as well as PT and OT defer to podiatry surgery. Transferred to the inpatient rehab unit insurance preset was obtained 2. Hypertension-blood pressure controlled, home medications continued with dose adjustment as needed 3. Dyslipidemia-patient is on statin therapy, continued at home dose 4. Diabetes mellitus type II: Controlled ON oral hypoglycemics in addition to long acting insulin, Accu-Cheks a.c. and at bedtime and covered with sliding scale insulin 5. DVT prophylaxis SC Lovenox - Physical Exam General: Oriented x3 HEENT: Atraumatic Oral: Moist Mucosa Neck: No JVD Lungs: Diminished Cardiovascular: Regular rate, Regular Rhythm Vital Signs Temp Pulse Resp BP Pulse Ox 98.9 F 81 18 120/64 98 10/04/18 10:12 10/04/18 10:12 10/04/18 10:12 10/04/18 10:12 10/04/18 10:12 Oxygen Delivery Method Room Air Weight: 68.039 kg Body Mass Index (BMI) 25.7 Finger Stick Blood Glucose 77 Intake and Output for Last 24 Hours 10/02/18 10/03/18 10/04/18 23:59 23:59 23:59 Intake Total 1849 Output Total 2149 Balance 1849 -36 / -36 Laboratory Tests Past 24 Hrs 10/04/18 10/04/18 05:40 05:40 WBC 9.7 RBC 3.81 L Hgb 11.1 L Hct 33.3 L MCV 87.4 MCH 29.1 MCHC 33.3 RDW 12.5 RDW Differential 38.7 Plt Count 236 MPV 10.6 Immature Gran % (Auto) 0.100 Neut % (Auto) 77.6 H Lymph % (Auto) 17.0 L [place] % (Auto) 5.0 Eos % (Auto) 0.2 Baso % (Auto) 0.1 Absolute Neuts (auto) 7.5 Absolute Lymphs (auto) 1.65 Total Counted Not Reportable Sodium 138 Potassium 3.4 L Chloride 104 Carbon Dioxide 26.0 Anion Gap 8 BUN 17 Creatinine 0.52 L Estim Creat Clear Calc 47.14 Est GFR (MDRD) Af Amer 151 Est GFR (MDRD) Non-Af 125 BUN/Creatinine Ratio 32.7 H Glucose 161 H Calcium 8.2 L POC Glucose 10/04/18 10/04/18 10/03/18 11:28 06:34 21:53 POC Glucose 128 H 150 H 315 H 10/03/18 16:06 POC Glucose 77 Discharge Diet: 1800 Calorie Control Diet Discharge Activity: Return to Normal Activity Home Medications: Medications to take at Discharge Hydrochlorothiazide [Hctz] 25 mg PO DAILY #14 tab 02/20/16 Lisinopril [Zestril] 40 mg PO DAILY 02/20/16 aspirin 81 mg tablet,delayed release 81 mg PO DAILY 09/15/18 metformin 1,000 mg tablet 500 mg PO BID 09/15/18 pravastatin 10 mg tablet 10 mg PO DAILY 09/15/18 Atenolol [Tenormin] 25 mg PO DAILY 10/02/18 Insulin Detemir [Levemir FlexPen] 20 units SC QHS 10/02/18 Meloxicam [Mobic] 7.5 mg PO BID 10/02/18 glyBURIDE [Micronase] 10 mg PO DAILY@0800 10/02/18 Enoxaparin [Lovenox] 40 mg SC DAILY@0600 syringe 10/04/18 Glucagon 1 mg IM .X1 PRN syringe 10/04/18 Hydrocodone Bitart/Apap 5-325 [[place] 5/325] 2 tablet PO Q6H PRN PRN 5 Days tablet 10/04/18 Insulin Lispro [Humalog KwikPen] See Protocol SQ ACHS insuln.pen 10/04/18 Magnesium Hydroxide [Milk Of Magnesia] 30 ml PO DAILY PRN PRN udc 10/04/18 Melatonin 6 mg PO QHS PRN PRN tablet 10/04/18 Potassium Chloride [K-Dur] 20 meq PO BIDCM tablet 10/04/18 Primary Care Physician: Lucretia Lorenzana [Primary Care Provider] - Disposition: Inpt Rehab Unit/Facility Minutes spent on discharge:: 45 Patient Condition:: Stable Medical Necessity - Tobacco Use Smoking Status: Never smoker Tobacco Use: Non-smoker Meaningful Use Info Meaningful Use Diagnoses (Choose all that apply): None applicable Code Visit Inpatient E&M: 15474 Disch Hosp
[2018-10-04 14:44] VITALS: BP 112/69; PULSE 75; RESP 18; TEMP 37.1; O2SAT 100
== END 2018-10-04 14:45 | DRG 494 ==
LOC: SDC 17:24
PROVIDERS: Student in an Organized Health Care Education/Training Program; Admitting Provider Podiatrist Foot & Ankle Surgery; Referring Provider Podiatrist Foot & Ankle Surgery; Visit Provider Internal Medicine
PROC: 0QSJ04Z Reposition Right Fibula with Internal Fixation Device, Open Approach (ICD-10-PCS; principal; 2018-10-03 13:15)
DX: S82.841A Displaced bimalleolar fracture of right lower leg, initial encounter for closed fracture (principal); W19.XXXA Unspecified fall, initial encounter; Y92.009 Unspecified place in unspecified non-institutional (private) residence as the place of occurrence of the external cause; I10 Essential (primary) hypertension; E78.5 Hyperlipidemia, unspecified; E87.6 Hypokalemia; E11.9 Type 2 diabetes mellitus without complications; Z23 Encounter for immunization; Z79.4 Long term (current) use of insulin; Z79.899 Other long term (current) drug therapy; M19.90 Unspecified osteoarthritis, unspecified site
CPT/HCPCS: 36415; 73600; 73610; 76000; 80048; 82962; 83036; 85025; 85027; 93005; 97162; 97165; C1713; J7120; 90686; A4216; J2405

== ENCOUNTER 2018-10-04 15:11 | Inpatient (IN) | payer MEDICARE, MEDICAID, SELFPAY ==
[2018-10-03 12:09] VITALS: BMI 25.7
[2018-10-04 15:28] VITALS: BP 124/82; PULSE 75; RESP 16; TEMP 37.6; O2SAT 94; BMI 28.9
[2018-10-04] MEDS: HYDROcodone Bitartrate/Apap 5/325 Tablet PO ×2 (16:15→23:48)
[2018-10-04] MEDS: fentaNYL 25 MCG Patch TRANSDERM. (16:15)
--- NOTE | 2018-10-04 16:25 | HP.PCM.COS_ITS ---
History of Present Illness Date of Admission: 10/04/18 Chief Complaint: Right Ankle Fracture The patient is a 68 year old right handed female who is admitted to the inpatient rehab unit for rehabilitation after she sustained a right bimalleolar fracture due to mechanical fall, she underwent an ORIF with Dr. Aida Choi on 10/03, with no complications noted post-op. She has a PMH of HTN, HLD, and DM type II, her blood sugars normally run in the 200s to 300s. She recently had an increase in her insulin dosage by her PCP a week ago. She lives alone, in a mobile home and has a ramp to get into the home. She was previously completely functionally independent and is admitted to the rehab unit in order to restore her previous level of functional independence. Past Medical History Past Medical History (Chronic Problems): Chronic Problems (Last Reviewed 09/15/18 @ 08:34 by Harshal Chung MD) Essential (primary) hypertension (Chronic) Type 2 diabetes mellitus (Chronic) Medical History: Medical History (Last Reviewed 09/15/18 @ 08:34 by Harshal Chung MD) Essential (primary) hypertension (Chronic) I10 Type 2 diabetes mellitus (Chronic) E11.9 Arthritis M19.90 Hyperlipidemia E78.5 Allergies No Known Drug Allergies Allergy (Unknown, Verified 10/02/18 10:19) Other Home Medications: Ambulatory Orders Medication Instructions Recorded Lisinopril [Zestril] 40 mg PO DAILY 02/20/16 aspirin 81 mg tablet,delayed 81 mg PO DAILY 09/15/18 release pravastatin 10 mg tablet 10 mg PO DAILY 09/15/18 Atenolol [Tenormin] 25 mg PO DAILY 10/02/18 Insulin Detemir [Levemir FlexPen] 20 units SC QHS 10/02/18 Meloxicam [Mobic] 7.5 mg PO BID 10/02/18 glyBURIDE [Micronase] 10 mg PO DAILY@0800 10/02/18 Enoxaparin [Lovenox] 40 mg SC DAILY@0600 10/04/18 Glucagon 1 mg IM .X1 PRN syringe 10/04/18 Hydrochlorothiazide [Hctz] 25 mg PO DAILY 10/04/18 Hydrocodone Bitart/Apap 5-325 2 tablet PO Q6H PRN PRN 5 Days 10/04/18 [[place] 5/325] tablet Melatonin 3 mg PO QHS PRN PRN 10/04/18 Potassium Chloride [K-Dur] 20 meq PO BIDCM 10/04/18 Surgical History: Surgical History (Last Reviewed 09/15/18 @ 08:34 by Harshal Chung MD) History of Z98.891 Surgical History: no surgical history Psychiatric History: No pertinent psych hx Lives: Alone Smoking Status: Never smoker Alcohol: Occasional Drugs: None - *Family History Maternal Family History: Family History (Last Reviewed 09/15/18 @ 08:34 by Harshal Chung MD) Mother Heart disease Brother Myocardial infarction History Items: No pertinent history Paternal Family History: Family History (Last Reviewed 09/15/18 @ 08:34 by Harshal Chung MD) Mother Heart disease Brother Myocardial infarction History Items: No pertinent history Review of Systems Constitutional: Denies: Chills, Fever, Weight Change HEENT: Denies: Head Aches, Sinus Congestion, Sinus Drainage Cardiovascular: Denies: Chest Pain, Palpitations Respiratory: Denies: Cough, Shortness of breath at rest, Sputum production Gastrointestinal: Denies: Abdominal Pain, Nausea, Vomiting Genitourinary: Denies: Dysuria Musculoskeletal: Denies: Joint Pain, Joint Tenderness Skin: Denies: Rash, Wounds Neurological: Denies: Numbness, Tingling, Focal weakness Psychiatric: Denies: Anxiety, Depression, Homicidal Ideations, Suicidal Ideations Hematologic/ Lymphatic: Denies: Easy Bruising, Easy Bleeding VTE Information - Inpt Only VTE Present on Admission: No VTE Mechan Device Prophylaxis: SCD's - Right leg only, Knee High [place] Hose - Right leg only VTE Pharm Prophylaxis ordered?: Yes Patient Problems: Active and Suspected Problems (Last Reviewed 09/15/18 @ 08:34 by Harshal Chung MD) Bimalleolar fracture of right ankle (Acute) Other specified noninfective disorders of lymphatic vessels and lymph nodes (Acute) Localized edema (Acute) - Physical Exam General: Alert, Oriented x3, Cooperative HEENT: Atraumatic, PERRLA, EOMI, Normocephalic Neck: Supple, No JVD, Negative Carotid Bruits Lungs: Clear to auscultation, Normal air movement Cardiovascular: Regular rate, No murmurs Abdomen: Bowel Sounds Present, Soft, Non Tender Extremities: No edema, Capillary Refill Less than 3 Seconds, - - Cast Left lower leg, capillary refill < 3 seconds, able to wiggle toes. Skin: No rashes, No breakdown Musculoskeletal: No Tenderness to Palpation of Joints or Extremities Neurological: Cranial nerves II-XII grossly intact Psych/Mental Status: Normal Affect, Appropriate, Alert and oriented to time, place, person, mood and affect Vital Signs Temp Pulse Resp BP Pulse Ox 99.6 F H 75 16 124/82 H 94 10/04/18 15:28 10/04/18 15:28 10/04/18 15:28 10/04/18 15:28 10/04/18 15:28 Oxygen Delivery Method Room Air Weight: 76.5 kg Body Mass Index (BMI) 28.9 Finger Stick Blood Glucose 77 Active Medications Hydrocodone Bitart/Acetaminophen ([place] 5mg-325mg) 2 tablet PO Q6H PRN PRN PRN Reason: SEVERE PAIN (6-10/10) Last Admin: 10/04/18 16:15 Dose: 2 tablet Aspirin (Ecotrin) 81 mg PO DAILYCM [facility] Atenolol (Tenormin (Beta Mary)) 25 mg PO DAILY [facility] Bisacodyl (Dulcolax) 10 mg RECTAL .PRN X 1 PRN PRN Reason: Constipation Enoxaparin Sodium (Lovenox) 40 mg SC DAILY@0600 [facility] Fentanyl (Duragesic Patch) 25 mcg TRANSDERM. Q3D [facility] Last Admin: 10/04/18 16:15 Dose: 25 mcg Glucagon () 1 mg IM .X1 PRN PRN Reason: Hypoglycemia Glyburide (Micronase) 10 mg PO DAILY@0800 [facility] Hydrochlorothiazide (Hctz) 25 mg PO DAILY [facility] Insulin Glargine (Lantus (Bkc)) 20 units SC QHS [facility] Insulin Human Lispro (Humalog Kwikpen (Bkc)) 0 unit SC [facility]; Protocol Lisinopril (Zestril) 40 mg PO DAILY [facility] Magnesium Hydroxide (Milk Of Magnesia) 30 ml PO .PRN X 1 PRN PRN Reason: Constipation Melatonin (Melatonin) 3 mg PO QHS PRN PRN PRN Reason: SLEEP Meloxicam (Mobic) 7.5 mg PO BID [facility] Met[facility]) [facility] Methocarbamol (Robaxin) 500 mg PO BID [facility] Nutritional Formula (Lactose Free) (Glucerna Shake) 120 ml PO BIDCM [facility] Potassium Chloride (K-Dur) 20 meq PO BIDCM [facility] Pravastatin Sodium (Pravachol) 10 mg PO QHS [facility] Senna/Docusate Sodium (Senokot-S, Jyoti-Colace) 2 tablet PO BID [facility] Assessment/Plan All Active Problems (Last Reviewed 09/15/18 @ 08:34 by Harshal Chung MD) Bimalleolar fracture of right ankle (Acute) Other specified noninfective disorders of lymphatic vessels and lymph nodes (Acute) Localized edema (Acute) Preop cardiovascular exam (Acute) Debility s/p right bimalleolar ankle fracture/ORIF of right ankle, complicated by Osteoarthritis in her left hip, HTN, HLD, and DM II. Goal of rehab is jainism of functional independence. Plan: - Physical therapy for gait and balance - Occupational Therapy for ADLs - As needed analgesics - Bowel protocol - DVT prophylaxis: SCDs, ASA, Lovenox - Hypertension: Stable with good control, continue HCTZ, and Lisinopril, with dose adjustment as needed - Diabetes type 2 => Controlled ON oral hypoglycemics in addition to long a cting insulin, Accu-Cheks a.c. and at bedtime and covered with sliding scale insulin - Right ankle ORIF- Cast dry, clean and intact - HLD - continue home dose of Statin - Weight bearing status - non weight bearing on right lower extremity - Acute pain management - Fentanyl patch 25mcq, [place], and Robaxin for muscle spasms in right calf - Fall precautions
[2018-10-04 16:46] LABS: Bedside Glucose 83 mg/dL (70-110)
--- NOTE | 2018-10-04 17:26 | NURSING ---
Aware of being a fall risk and must ask for staff assist and verbalized understanding.
[2018-10-04] MEDS: Glucerna Shake 120 ML LIQUID PO (17:59)
--- NOTE | 2018-10-04 19:30 | NURSING ---
DR BLUNT TO PT'S ROOM TO SEE PT AND REWRAP SOFT CAST. ORDERS GIVEN FOR POLAR CARE.
--- NOTE | 2018-10-04 19:53 | PCM.CONS.GEN ---
Problem List (1) Bimalleolar fracture of right ankle Status: Acute Qualifiers: Encounter type: subsequent encounter Fracture type: closed Fracture healing: with routine healing Qualified Code(s): S82.841D - Displaced bimalleolar fracture of right lower leg, subsequent encounter for closed fracture with routine healing (2) Other specified noninfective disorders of lymphatic vessels and lymph nodes Status: Acute (3) Localized edema Status: Acute Reason for Consult Date of Consultation: 10/03/18 Reason for Consultation: s/p R ORIF bimalleolar ankle History of Present Illness: The patient is a 68 year old F s/p ORIF R bimalleolar fracture, DOS 10/03/18, DOI 09/06/18. Pt admitted post operatively for medical management and evaluation/treatment of her physical limitations which inhibit her safety to go home and maintain strict NWB RLE. denies f/c/n/v/cp/sob/calf pain [] Past Medical History Past Medical History (Chronic Problems): Chronic Problems (Last Reviewed 09/15/18 @ 08:34 by Harshal Chung MD) Essential (primary) hypertension (Chronic) Type 2 diabetes mellitus (Chronic) Medical History: Medical History (Last Reviewed 09/15/18 @ 08:34 by Harshal Chung MD) Essential (primary) hypertension (Chronic) I10 Type 2 diabetes mellitus (Chronic) E11.9 Arthritis M19.90 Hyperlipidemia E78.5 Allergies No Known Drug Allergies Allergy (Unknown, Verified 10/02/18 10:19) Other Home Medications: Ambulatory Orders Medication Instructions Recorded Lisinopril [Zestril] 40 mg PO DAILY 02/20/16 aspirin 81 mg tablet,delayed 81 mg PO DAILY 09/15/18 release pravastatin 10 mg tablet 10 mg PO DAILY 09/15/18 Atenolol [Tenormin] 25 mg PO DAILY 10/02/18 Insulin Detemir [Levemir FlexPen] 20 units SC QHS 10/02/18 Meloxicam [Mobic] 7.5 mg PO BID 10/02/18 glyBURIDE [Micronase] 10 mg PO DAILY@0800 10/02/18 Enoxaparin [Lovenox] 40 mg SC DAILY@0600 10/04/18 Glucagon 1 mg IM .X1 PRN syringe 10/04/18 Hydrochlorothiazide [Hctz] 25 mg PO DAILY 10/04/18 Hydrocodone Bitart/Apap 5-325 2 tablet PO Q6H PRN PRN 5 Days 10/04/18 [Omar 5/325] tablet Melatonin 3 mg PO QHS PRN PRN 10/04/18 Potassium Chloride [K-Dur] 20 meq PO BIDCM 10/04/18 Surgical History: Surgical History (Last Reviewed 09/15/18 @ 08:34 by Harshal Chung MD) History of Z98.891 Surgical History: no surgical history Psychiatric History: No pertinent psych hx Lives: Alone Smoking Status: Never smoker Alcohol: Occasional Drugs: None - *Family History Maternal Family History: Family History (Last Reviewed 09/15/18 @ 08:34 by Harshal Chung MD) Mother Heart disease Brother Myocardial infarction History Items: No pertinent history Paternal Family History: Family History (Last Reviewed 09/15/18 @ 08:34 by Harshal Chung MD) Mother Heart disease Brother Myocardial infarction History Items: No pertinent history Patient Problems: Active and Suspected Problems (Last Reviewed 09/15/18 @ 08:34 by Harshal Chung MD) Bimalleolar fracture of right ankle (Acute) Other specified noninfective disorders of lymphatic vessels and lymph nodes (Acute) Localized edema (Acute) Subjective: pt evaluated at bedside with family present. States she is having pain in RLE mostly shooting pain to inside ankle and leg. Has been elevating. Did nt sleep on med-surg as she was woken up for evaluation/vitals soon after falling asleep. Objective: vasc: nontender to calf compression, CRF < 3 sec Neuro: light touch sensation intact Ms: posterior splint in place, top compressive layer loosened slightly Derm: no strikethrough noted, dressing c/d/i Radiographs: 3 views of the right ankle obtained post operatively: good surgical correction noted, hardware intact, tibiotalar joint appear even - Physical Exam General: Alert, Cooperative Vital Signs Temp Pulse Resp BP Pulse Ox 99.6 F H 75 16 124/82 H 94 10/04/18 15:28 10/04/18 15:28 10/04/18 15:28 10/04/18 15:28 10/04/18 15:28 Oxygen Delivery Method Room Air Weight: 168 lb 10.458 oz Body Mass Index (BMI) 28.9 Finger Stick Blood Glucose 77 POC Glucose 10/04/18 16:30 POC Glucose 83 Assessment/Plan All Active Problems (Last Reviewed 09/15/18 @ 08:34 by Harshal Chung MD) Bimalleolar fracture of right ankle (Acute) Other specified noninfective disorders of lymphatic vessels and lymph nodes (Acute) Localized edema (Acute) Preop cardiovascular exam (Acute) 68 yo F s/p R ORIF bimalleolar ankle fracture POD 1 -pt evaluated at bedside -labs, studies and notes reviewed -elevate RLE when in bed or recliner, offload heel to the comfort of the patient, Recommend ice therapy behind right knee given layered compression splint. -continue NWB RLE, please note she also had significant left inversion ankle sprain concurrently, daughter will bring in aso lace brace to aid in stability and function. Please eval and treat prn for left lateral ankle instability to aid in ambulation and RLE NWB. -home meds, dvt prophylaxis and pain medications per Acute Rehab physicians. -will follow, if here or TCU at one week will evaluate incisions at [facility], if not- will need outpatient appointment with me at [facility] [place]. -Please call with questions or concerns
--- NOTE | 2018-10-04 19:59 | CON.PCM_ITS ---
Problem List (1) Bimalleolar fracture of right ankle Status: Acute Qualifiers: Encounter type: subsequent encounter Fracture type: closed Fracture healing: with routine healing Qualified Code(s): S82.841D - Displaced bima lleolar fracture of right lower leg, subsequent encounter for closed fracture with routine healing (2) Other specified noninfective disorders of lymphatic vessels and lymph nodes Status: Acute (3) Localized edema Status: Acute Reason for Consult Date of Consultation: 10/03/18 Reason for Consultation: s/p R ORIF bimalleolar ankle History of Present Illness: The patient is a 68 year old F s/p ORIF R bimalleolar fracture, DOS 10/03/18, DOI 09/06/18. Pt admitted post operatively for medical management and evaluation/treatment of her physical limitations which inhibit her safety to go home and maintain strict NWB RLE. denies f/c/n/v/cp/sob/calf pain [] Past Medical History Past Medical History (Chronic Problems): Chronic Problems (Last Reviewed 09/15/18 @ 08:34 by Harshal Chung MD) Essential (primary) hypertension (Chronic) Type 2 diabetes mellitus (Chronic) Medical History: Medical History (Last Reviewed 09/15/18 @ 08:34 by Harshal Chung MD) Essential (primary) hypertension (Chronic) I10 Type 2 diabetes mellitus (Chronic) E11.9 Arthritis M19.90 Hyperlipidemia E78.5 Allergies No Known Drug Allergies Allergy (Unknown, Verified 10/02/18 10:19) Other Home Medications: Ambulatory Orders Medication Instructions Recorded Lisinopril [Zestril] 40 mg PO DAILY 02/20/16 aspirin 81 mg tablet,delayed 81 mg PO DAILY 09/15/18 release pravastatin 10 mg tablet 10 mg PO DAILY 09/15/18 Atenolol [Tenormin] 25 mg PO DAILY 10/02/18 Insulin Detemir [Levemir FlexPen] 20 units SC QHS 10/02/18 Meloxicam [Mobic] 7.5 mg PO BID 10/02/18 glyBURIDE [Micronase] 10 mg PO DAILY@0800 10/02/18 Enoxaparin [Lovenox] 40 mg SC DAILY@0600 10/04/18 Glucagon 1 mg IM .X1 PRN syringe 10/04/18 Hydrochlorothiazide [Hctz] 25 mg PO DAILY 10/04/18 Hydrocodone Bitart/Apap 5-325 2 tablet PO Q6H PRN PRN 5 Days 10/04/18 [[place] 5/325] tablet Melatonin 3 mg PO QHS PRN PRN 10/04/18 Potassium Chloride [K-Dur] 20 meq PO BIDCM 10/04/18 Surgical History: Surgical History (Last Reviewed 09/15/18 @ 08:34 by Harshal Chung MD) History of Z98.891 Surgical History: no surgical history Psychiatric History: No pertinent psych hx Lives: Alone Smoking Status: Never smoker Alcohol: Occasional Drugs: None - *Family History Maternal Family History: Family History (Last Reviewed 09/15/18 @ 08:34 by Harshal Chung MD) Mother Heart disease Brother Myocardial infarction History Items: No pertinent history Paternal Family History: Family History (Last Reviewed 09/15/18 @ 08:34 by Harshal Chung MD) Mother Heart disease Brother Myocardial infarction History Items: No pertinent history Patient Problems: Active and Suspected Problems (Last Reviewed 09/15/18 @ 08:34 by Harshal Chung MD) Bimalleolar fracture of right ankle (Acute) Other specified noninfective disorders of lymphatic vessels and lymph nodes (Acute) Localized edema (Acute) Subjective: pt evaluated at bedside with family present. States she is having pain in RLE mostly shooting pain to inside ankle and leg. Has been elevating. Did nt sleep on med-surg as she was woken up for evaluation/vitals soon after falling asleep. Objective: vasc: nontender to calf compression, CRF < 3 sec Neuro: light touch sensation intact Ms: posterior splint in place, top compressive layer loosened slightly Derm: no strikethrough noted, dressing c/d/i Radiographs: 3 views of the right ankle obtained post operatively: good surgical correction noted, hardware intact, tibiotalar joint appear even - Physical Exam General: Alert, Cooperative Vital Signs Temp Pulse Resp BP Pulse Ox 99.6 F H 75 16 124/82 H 94 10/04/18 15:28 10/04/18 15:28 10/04/18 15:28 10/04/18 15:28 10/04/18 15:28 Oxygen Delivery Method Room Air Weight: 168 lb 10.458 oz Body Mass Index (BMI) 28.9 Finger Stick Blood Glucose 77 POC Glucose 10/04/18 16:30 POC Glucose 83 Assessment/Plan All Active Problems (Last Reviewed 09/15/18 @ 08:34 by Harshal Chung MD) Bimalleolar fracture of right ankle (Acute) Other specified noninfective disorders of lymphatic vessels and lymph nodes (Acute) Localized edema (Acute) Preop cardiovascular exam (Acute) 68 yo F s/p R ORIF bimalleolar ankle fracture POD 1 -pt evaluated at bedside -labs, studies and notes reviewed -elevate RLE when in bed or recliner, offload heel to the comfort of the patient, Recommend ice therapy behind right knee given layered compression splint. -continue NWB RLE, please note she also had significant left inversion ankle sprain concurrently, daughter will bring in aso lace brace to aid in stability and function. Please eval and treat prn for left lateral ankle instability to aid in ambulation and RLE NWB. -home meds, dvt prophylaxis and pain medications per Acute Rehab physicians. -will follow, if here or TCU at one week will evaluate incisions at [facility], if not- will need outpatient appointment with me at [facility]. -Please call with questions or concerns
[2018-10-04 20:21] VITALS: BP 154/65; PULSE 81; RESP 20; TEMP 36.9; O2SAT 93
[2018-10-04] MEDS: Methocarbamol 500 MG Tablet PO (20:43)
[2018-10-04] MEDS: Senna/Docusate Sodium 1 Tablet 2 TABLET PO (21:53)
[2018-10-04] MEDS: Pravastatin 20 MG Tablet 10 MG PO (21:54)
[2018-10-04] MEDS: Meloxicam 7.5 MG Tablet PO (21:54)
[2018-10-04] MEDS: Insulin Lispro 100 UNIT/ML INSULN.PEN SC (21:56)
[2018-10-04] MEDS: MELATONIN 3 MG TABLET PO (21:59)
[2018-10-04 22:36] LABS: Bedside Glucose 261 mg/dL (70-110)
[2018-10-05 04:35] LABS: Bedside Glucose 178 mg/dL (70-110)
[2018-10-05] MEDS: Enoxaparin 40 MG/0.4 ML Syringe SC (05:29)
[2018-10-05 05:35] LABS: Absolute Lymphocyte Count 2.04 X10^3/ul (0.83-4.51); Eosinophils% 1.3 % (0-5); Hematocrit 31.9 % (37-47); Hemoglobin 10.5 g/dl (12.0-15.0); Lymphocyte # 2.04 X10^3/ul (4.0); Lymphocyte % 26.2 % (19-41); Mean Corp Hgb Conc 32.9 g/gl (32-36); Mean Corpuscular Hgb 28.8 pg (27.0-32.0); Mean Corpuscular Volume 87.4 fL (81-99); Mean Platelet Vol. 10.2 fl (6.2-12.0); Monocyte# 0.62 X10^3/uL; Monocyte% 7.9 % (0-10); Neutrophil # 5.03 X10^3/uL (2.7-7.7); Neutrophil % 64.5 % (47-70); Platelet Count 201 K/mm3 (150-450); RBC Distribution Width CV 12.4 % (11.6-14.6); RBC Distribution Width SD 38.5 fl (35.1-43.9); Red Blood Count 3.65 M/mm3 (4.2-5.4); White Blood Count 7.8 K/mm3 (4.4-11.0)
[2018-10-05 05:50] LABS: POSITIVE COUNT NO; POSITIVE DIFFERENTIAL NO; POSITIVE MORPHOLOGY NO
[2018-10-05 05:58] LABS: ALB/GLOB Ratio 0.7 RATIO (0.9-2.4); AST(SGOT) 24 U/L (15-37); Alanine Aminotransfer ALT/SGPT 24 U/L (13-56); Albumin, Serum 2.3 g/dL (3.2-5.0); Alkaline Phosphatase 71 U/L (45-117); Anion Gap 8 (5-15); BUN 16 mg/dL (7-18); BUN/Creat Ratio 30.2 RATIO (10-20); Calcium,Total 8.5 mg/dL (8.5-10.1); Chloride 105 mmol/L (98-107); Creatinine, Serum 0.53 mg/dL (0.55-1.02); EST Glomerular Filtration Rate 123 mL/min (>60); Est Glom Filt Rate - Afr Amer 148 mL/min (>60); Estimated Creatinine Clearance 47.14 ml/min; Globulin 3.4 g/dL (2.2-4.2); Glucose 161 mg/dL (74-106); Potassium 3.3 mmol/L (3.5-5.1); Protein, Total 5.7 g/dL (6.4-8.2); Sodium Level 140 mmol/L (136-145)
[2018-10-05] MEDS: HYDROcodone Bitartrate/Apap 5/325 Tablet PO ×3 (06:19→22:13)
[2018-10-05 06:46] LABS: Bedside Glucose 137 mg/dL (70-110)
[2018-10-05 07:00] VITALS: BP 137/73; PULSE 74; RESP 20; TEMP 36.9; O2SAT 95
[2018-10-05] MEDS: Atenolol 25 MG Tablet PO (09:25)
[2018-10-05] MEDS: Lisinopril 40 MG Tablet PO (09:25)
[2018-10-05] MEDS: Meloxicam 7.5 MG Tablet PO ×2 (09:26→22:13)
[2018-10-05] MEDS: Aspirin E.C. 81 MG Tablet PO (09:26)
[2018-10-05] MEDS: Methocarbamol 500 MG Tablet PO ×2 (09:26→22:13)
[2018-10-05] MEDS: Senna/Docusate Sodium 1 Tablet 2 TABLET PO ×2 (09:26→22:13)
[2018-10-05] MEDS: hydroCHLOROthiazide 25 MG Tablet PO (09:26)
--- NOTE | 2018-10-05 10:26 | PN.NEURO_ITS ---
Patient Problems: Active and Suspected Problems (Last Reviewed 09/15/18 @ 08:34 by Harshal Chung MD) Bimalleolar fracture of right ankle (Acute) Other specified noninfective disorders of lymphatic vessels and lymph nodes (Acute) Localized edema (Acute) Subjective: Patient seen and examined. No new complaints, pain has improved with the addition of a Fentanyl patch. Tolerating therapy. No issues with GI/. - Physical Exam General: Alert, Oriented x3, Cooperative HEENT: Atraumatic, PERRLA, EOMI, Normocephalic Neck: Supple, No JVD, Negative Carotid Bruits Lungs: Clear to auscultation, Normal air movement Cardiovascular: Regular rate, No murmurs Abdomen: Bowel Sounds Present, Soft, Non Tender Extremities: No edema, Capillary Refill Less than 3 Seconds Skin: No rashes, No breakdown Musculoskeletal: No Tenderness to Palpation of Joints or Extremities Neurological: Cranial nerves II-XII grossly intact Psych/Mental Status: Normal Affect, Appropriate, Alert and oriented to time, place, person, mood and affect Vital Signs Temp Pulse Resp BP Pulse Ox 98.4 F 74 20 H 137/73 H 95 10/05/18 07:00 10/05/18 07:00 10/05/18 07:00 10/05/18 07:00 10/05/18 07:00 Oxygen Delivery Method Room Air Weight: 76.5 kg Body Mass Index (BMI) 28.9 Finger Stick Blood Glucose 77 Intake and Output for Last 24 Hours 10/03/18 10/04/18 10/05/18 23:59 23:59 23:59 Intake Total 240 / 240 Output Total 500 / 500 Balance -500 / -500 240 / 240 Laboratory Tests Past 24 Hrs 10/05/18 10/05/18 05:22 05:22 WBC 7.8 RBC 3.65 L Hgb 10.5 L Hct 31.9 L MCV 87.4 MCH 28.8 MCHC 32.9 RDW 12.4 RDW Differential 38.5 Plt Count 201 MPV 10.2 Immature Gran % (Auto) 0.100 Neut % (Auto) 64.5 Lymph % (Auto) 26.2 [place] % (Auto) 7.9 Eos % (Auto) 1.3 Baso % (Auto) 0.0 Absolute Neuts (auto) 5.0 Absolute Lymphs (auto) 2.04 Total Counted Not Reportable Sodium 140 Potassium 3.3 L Chloride 105 Carbon Dioxide 27.0 Anion Gap 8 BUN 16 Creatinine 0.53 L Estim Creat Clear Calc 47.14 Est GFR (MDRD) Af Amer 148 Est GFR (MDRD) Non-Af 123 BUN/Creatinine Ratio 30.2 H Glucose 161 H Calcium 8.5 Total Bilirubin 0.30 AST 24 ALT 24 Alkaline Phosphatase 71 Total Protein 5.7 L Albumin 2.3 L Globulin 3.4 Albumin/Globulin Ratio 0.7 L POC Glucose 10/05/18 10/05/18 10/04/18 06:22 03:22 21:53 POC Glucose 137 H 178 H 261 H 10/04/18 16:30 POC Glucose 83 Active Medications Hydrocodone Bitart/Acetaminophen (Morenci 5mg-325mg) 2 tablet PO Q6H PRN PRN PRN Reason: SEVERE PAIN (6-10) Last Admin: 10/05/18 06:19 Dose: 2 [facility] Last Admin: 10/05/18 09:26 Dose: 81 mg Atenolol (Tenormin (Beta Mary)) 25 mg PO DAILY [facility] Last Admin: 10/05/18 09:25 Dose: 25 mg Bisacodyl (Dulcolax) 10 mg RECTAL .PRN X 1 PRN PRN Reason: Constipation Dextrose (D50w Syringe) 0 gm IV X1 PRN; Protocol PRN Reason: Hypoglycemia Enoxaparin Sodium (Lovenox) 40 mg SC DAILY@0600 [facility] Last Admin: 10/05/18 05:29 Dose: 40 mg Fentanyl (Duragesic Patch) 25 mcg TRANSDERM. Q3D [facility] Last Admin: 10/04/18 16:15 Dose: 25 mcg Glucagon () 1 mg IM .X1 PRN PRN Reason: Hypoglycemia Glucagon () 1 mg IM .X1 PRN PRN Reason: Hypoglycemia Glyburide (Micronase) 10 mg PO DAILY@0800 [facility] Last Admin: 10/05/18 09:26 Dose: 10 mg Hydrochlorothiazide (Hctz) 25 mg PO DAILY [facility] Last Admin: 10/05/18 09:26 Dose: 25 mg Insulin Glargine (Lantus (Bkc)) 20 units SC QHS [facility] Last Admin: 10/04/18 21:55 Dose: 20 units Insulin Human Lispro (Humalog Kwikpen (Bkc)) 0 unit SC [facility]; Protocol Last Admin: 10/05/18 06:23 Dose: Not Given Lisinopril (Zestril) 40 mg PO DAILY [facility] Last Admin: 10/05/18 09:25 Dose: 40 mg Magnesium Hydroxide (Milk Of Magnesia) 30 ml PO .PRN X 1 PRN PRN Reason: Constipation Melatonin (Melatonin) 3 mg PO QHS PRN PRN PRN Reason: SLEEP Last Admin: 10/04/18 21:59 Dose: 3 mg Meloxicam (Mobic) 7.5 mg PO BID [facility] Last Admin: 10/05/18 09:26 Dose: 7.5 mg Metformin [facility] ([facility]ophage) [facility] Last Admin: 10/05/18 09:26 Dose: 500 mg Methocarbamol (Robaxin) 500 mg PO BID [facility] Last Admin: 10/05/18 09:26 Dose: 500 mg Nutritional Formula (Lactose Free) (Glucerna Shake) [facility] Last Admin: 10/05/18 08:41 Dose: Not Given Potassium Chloride (K-Dur) [facility] Last Admin: 10/05/18 09:25 Dose: 20 meq Pravastatin Sodium (Pravachol) 10 mg PO QHS [facility] Last Admin: 10/04/18 21:54 Dose: 10 mg Senna/Docusate Sodium (Senokot-S, Jyoti-Colace) 2 tablet PO BID [facility] Last Admin: 10/05/18 09:26 Dose: 2 tablet Medical Necessity - Tobacco Use Smoking Status: Never smoker Assessment/Plan All Active Problems (Last Reviewed 09/15/18 @ 08:34 by Harshal Chung MD) Bimalleolar fracture of right ankle (Acute) Other specified noninfective disorders of lymphatic vessels and lymph nodes (Acute) Localized edema (Acute) Preop cardiovascular exam (Acute) Debility s/p right bimalleolar ankle fracture/ORIF of right ankle, complicated by Osteoarthritis in her left hip, HTN, HLD, and DM II. Goal of rehab is anglican of functional independence. Plan: - Physical therapy for gait and balance - Occupational Therapy for ADLs - As needed analgesics - Bowel protocol - DVT prophylaxis: SCDs, ASA, Lovenox - Hypertension: Stable with good control, continue HCTZ, and Lisinopril, with dose adjustment as needed - Diabetes type 2 => Controlled ON oral hypoglycemics in addition to long acting insulin, Accu-Cheks a.c. and at bedtime and covered with sliding scale i nsulin - Right ankle ORIF- Cast dry, clean and intact - HLD - continue home dose of Statin - Weight bearing status - non weight bearing on right lower extremity - Acute pain management - Fentanyl patch 25mcq, Morenci, and Robaxin for muscle spasms in right calf - Fall precautions
[2018-10-05 11:45] LABS: Bedside Glucose 140 mg/dL (70-110)
--- NOTE | 2018-10-05 12:56 | PN_ITS ---
Patient Problems: Active and Suspected Problems (Last Reviewed 09/15/18 @ 08:34 by Harshal Chung MD) Bimalleolar fracture of right ankle (Acute) Other specified noninfective disorders of lymphatic vessels and lymph nodes (Acute) Localized edema (Acute) Subjective: Patient is a 68-year-old female admitted with right bimalleolar ankle fracture who underwent right ankle ORIF on 10/03/2018 by podiatry. Patient was transferred to the inpatient rehab unit following stabilization of her medical condition 10/05/2018: Patient seen still complains of significant discomfort in the right ankle Objective: GENERAL: cooperative HEENT: Atraumatic; EYES; Anicteric, NECK; supple, normal thyroid, RESPIRATORY: Diminished to auscultation bilaterally, CARDIOVASCULAR: Regular S1 S2, no audible murmurs GI: soft, non-tender, normoactive bowel sounds, : No Renal angle tenderness; EXTREMITIES: Right ankle in surgical dressing NEURO: Awake; no lateralizing signs. SKIN: No Rash PSYCH; Normal affect Vitals/I&O's: Vital Signs Temp Pulse Resp BP Pulse Ox 98.4 F 74 20 H 137/73 H 95 10/05/18 07:00 10/05/18 07:00 10/05/18 07:00 10/05/18 07:00 10/05/18 07:00 Oxygen Delivery Method Room Air Weight: 76.5 kg Body Mass Index (BMI) 28.9 Finger Stick Blood Glucose 77 Intake and Output for Last 24 Hours 10/03/18 10/04/18 10/05/18 23:59 23:59 23:59 Intake Total 240 / 240 Output Total 500 / 500 Balance -500 / -500 240 / 240 Laboratory Results 10/04/18 16:30: POC Glucose 83 10/04/18 21:53: POC Glucose 261 H 10/05/18 03:22: POC Glucose 178 H 10/05/18 05:22: WBC 7.8, RBC 3.65 L, Hgb 10.5 L, Hct 31.9 L, MCV 87.4, MCH 28.8, MCHC 32.9, RDW 12.4, RDW Differential 38.5, Plt Count 201, MPV 10.2, Immature Gran % (Auto) 0.100, Neut % (Auto) 64.5, Lymph % (Auto) 26.2, [place] % (Auto) 7.9, Eos % (Auto) 1.3, Baso % (Auto) 0.0, Absolute Neuts (auto) 5.0, Absolute Lymphs (auto) 2.04, Total Counted Not Reportable 10/05/18 05:22: Sodium 140, Potassium 3.3 L, Chloride 105, Carbon Dioxide 27.0, Anion Gap 8, BUN 16, Creatinine 0.53 L, Estim Creat Clear Calc 47.14, Est GFR (MDRD) Af Amer 148, Est GFR (MDRD) Non-Af 123, BUN/Creatinine Ratio 30.2 H, Glucose 161 H, Calcium 8.5, Total Bilirubin 0.30, AST 24, ALT 24, Alkaline Phosphatase 71, Total Protein 5.7 L, Albumin 2.3 L, Globulin 3.4, Albumin/Globulin Ratio 0.7 L 10/05/18 06:22: POC Glucose 137 H 10/05/18 11:35: POC Glucose 140 H Current Medications Hydrocodone Bitart/Acetaminophen ([place] 5mg-325mg) 2 tablet PO Q6H PRN PRN PRN Reason: SEVERE PAIN (6-1010) Last Admin: 10/05/18 12:24 Dose: 2 tablet [facility]) [facility] Last Admin: 10/05/18 09:26 Dose: 81 mg Atenolol (Tenormin (Beta Mary)) 25 mg PO DAILY [facility] Last Admin: 10/05/18 09:25 Dose: 25 mg Bisacodyl (Dulcolax) 10 mg RECTAL .PRN X 1 PRN PRN Reason: Constipation Dextrose (D50w Syringe) 0 gm IV X1 PRN; Protocol PRN Reason: Hypoglycemia Enoxaparin Sodium (Lovenox) 40 mg SC DAILY@0600 [facility] Last Admin: 10/05/18 05:29 Dose: 40 mg Fentanyl (Duragesic Patch) 25 mcg TRANSDERM. Q3D [facility] Last Admin: 10/04/18 16:15 Dose: 25 mcg Glucagon () 1 mg IM .X1 PRN PRN Reason: Hypoglycemia Glucagon () 1 mg IM .X1 PRN PRN Reason: Hypoglycemia Glyburide (Micronase) 10 mg PO DAILY@0800 [facility] Last Admin: 10/05/18 09:26 Dose: 10 mg Hydrochlorothiazide (Hctz) 25 mg PO DAILY [facility] Last Admin: 10/05/18 09:26 Dose: 25 mg Insulin Glargine (Lantus (Bkc)) 20 units SC QHS [facility] Last Admin: 10/04/18 21:55 Dose: 20 units Insulin Human Lispro (Humalog Kwikpen (Bkc)) 0 unit SC ACHS [facility]; Protocol Last Admin: 10/05/18 11:51 Dose: Not Given Lisinopril (Zestril) 40 mg PO DAILY [facility] Last Admin: 10/05/18 09:25 Dose: 40 mg Magnesium Hydroxide (Milk Of Magnesia) 30 ml PO .PRN X 1 PRN PRN Reason: Constipation Melatonin (Melatonin) 3 mg PO QHS PRN PRN PRN Reason: SLEEP Last Admin: 10/04/18 21:59 Dose: 3 mg Meloxicam (Mobic) 7.5 mg PO BID [facility] Last Admin: 10/05/18 09:26 Dose: 7.5 mg Metformin [facility] (Glucophage) [facility] Last Admin: 10/05/18 09:26 Dose: 500 mg Methocarbamol (Robaxin) 500 mg PO BID [facility] Last Admin: 10/05/18 09:26 Dose: 500 mg Potassium Chloride (K-Dur) [facility]q [facility] Last Admin: 10/05/18 09:25 Dose: 20 meq Pravastatin Sodium (Pravachol) 10 mg PO QHS [facility] Last Admin: 10/04/18 21:54 Dose: 10 mg Senna/Docusate Sodium (Senokot-S, Jyoti-Colace) 2 tablet PO BID [facility] Last Admin: 10/05/18 09:26 Dose: 2 tablet Medical Necessity - Tobacco Use Smoking Status: Never smoker Assessment/Plan All Active Problems (Last Reviewed 09/15/18 @ 08:34 by Harshal Chung MD) Bimalleolar fracture of right ankle (Acute) Other specified noninfective disorders of lymphatic vessels and lymph nodes (Acute) Localized edema (Acute) Preop cardiovascular exam (Acute) Patient is a 68-year-old female admitted with right bimalleolar ankle fracture who underwent right ankle ORIF on 10/03/2018 by podiatry. Patient was transferred to the inpatient rehab unit following stabilization of her medical condition 1. Status post right ankle ORIF on 10/03/2018 on account of right bimalleolar ankle fracture. Patient was transferred to the inpatient rehab unit 2. Hypertension-blood pressure controlled, home medications continued with dose adjustment as needed 3. Dyslipidemia-patient is on statin therapy, continued at home dose 4. Diabetes mellitus type II: Controlled on oral hypoglycemics in addition to long acting insulin, Accu-Cheks a.c. and at bedtime and covered with sliding scale insulin 5. DVT prophylaxis SC Aracelisnox Code Visit Inpatient E&M: [id number] [facility] L3
--- NOTE | 2018-10-05 13:09 | CASEMGMT ---
STEPHANIE reviewed psychosocial assessment completed by Hailee Stanton Student STEPHANIE. Francisca Babcock [facility]
--- NOTE | 2018-10-05 13:52 | PCM.RU.PYE ---
Admission Information Status Changes from Prescreening?: No changes Identified Actual Problem List:: Falls, Mobility Impaired, Self Care Deficit Potential Problem List:: DVT, Bleeding, Infection, UTI, Aspiration, Falls, Skin Integrity, Depression Risk of Complications DVT: LMWH, SPRING Hose, Sequential Compression Device Bleeding: Monitor Lab Values, Nursing to Teach Precautions for anti-coagulation therapy., Wound, if applicable, to be assessed every shift., Stroke patients assessed for lethargy or change in status. Infection: Clinical Staff to Monitor for S/S of infection:, S/S of infection include fever, redness, warmth, etc. Urinary Tract Infection: Monitor for frequency, burning, discomfort, or incontinence., Nursing will obtain urine sample for urinalysis and C&S when ordered. Aspiration: Clinical staff will monitor for coughing, drooling, congestion., Speech will evaluate swallowing and dsyphasia., Nursing will monitor patient swallowing during meals. Falls: Patient will be evaluated for Fall Precautions, Patient will be placed on Fall Precautions as indicated per protocol. Skin Breakdown: Nursing will assess skin daily using assessment tool., Nursing will place on Skin Breakdown Precautions as indicated. Pain: Clinical staff will assess patient's pain level per protocol., Medications will be given, if needed, and the pain level reassessed., Other methods: Massage, distraction, decrease stimulus, etc. used PRN. Plan of Care Patient requires physician specializing in physical medicine and rehab oversight to provide close medical supervision of rehab issues including: Pain Management, Sleep Problems, Bowel and Bladder, Medical and co-morbidity Management, DVT prophylaxis, Rehabilitation Leadership, Coordination of treatment team Patient needs Physical Therapy: For a minimum of 1 hour, At least 5 out of 7 days Patient needs Physical Therapy to improve:: Mobility, Mobility, Mobility, Strengthening, Transfers, Stretching, ROM, Endurance, Stairs, Gait, Balance Patient needs Occupational Therapy: For a minimum of 1 hour, At least 5 out of 7 days Patient needs Occupational Therapy to improve ADL's incl.: Eating, Grooming, Bathing, Dressing, Toileting, Toilet transfers, Community Reintegration, Higher functioning activities, Household tasks, Adaptive Equipment, Splinting, Other activities as determined Patient requires 24/7 Rehabilitation Nursing for: Pain Issues, Identifying and preventing risk factors, Monitoring and reporting current medical conditions, Assisting with ambulation, transfer, and all ADL's, Teaching patients about disease process and medications, Family teaching, Providing safe environment, Bowel and Bladder Issues, Skin integrity, Medication Management Patient needs Computer Networking Instructor/ Case Management for: Discharge Planning, Arranging Home Equipment or Services, Family Interventions Patient needs Dietary and Nutrition Services for: Adequate Nutrition, Nutritional Supplements, Nutritional Education Goals Patient will remain: free from falls, or injury at time of discharge. Patient will perform bed mobility at: MOD I level of assist. Patient will complete transfers from bed to chair at: MOD I level of assist. Patient will ambulate: 100 feet, with MOD I assist, with LRD Patient will complete upper body dressing at: MOD I level of assist. Patient will complete lower body dressing at: MOD I level of assist. Patient will complete toileting at: MOD I level of assist. Patient will perform bathing at: MOD I level of assist. Patient will complete grooming at: MOD I level of assist. Patient will complete home management skills at: MOD I level of assist. Patient will achieve: 12 stairs, at MOD I assist Patient will have pain level of: of 3 or less Patient's skin will: remain intact, free from infection. Patient will receive: adequate nutrition. Discharge Planning Pt Prognosis for Sig. Practical Improv. w/in Reasonable Time: Good Estimated Length of stay (days): 16 Anticipated D/C Destination: Home Was Preadmission Assessment Accurate?: Yes
--- NOTE | 2018-10-05 16:04 | CHAPLAIN ---
Type of Pastoral Visit _x__ Initial Visit ___ Follow-up Visit ___ On-call Visit ___ General Patient Visit ___ Spiritual Assessment ___ Family Conference ___ Bereavement ___ Rapid Response ___ Code Blue ___ Other (describe below) Pastoral Care Referral From _x__ Patient ___ Family ___ Nurse ___ Physician ___ Scooter Mechanic ___ Hemstitcher ___ Other (describe below) Sacrament/Intervention _x__ Active listening ___ Anointing ___ Quaker ___ Bereavement ___ Communion ___ Susan exploration ___ ___ Life review _x__ Prayer ___ Reconciliation ___ Sacrament of Sick _x__ Supportive presence ___ Wedding ___ Other (describe below) Pastoral Comments
[2018-10-05 17:11] LABS: Bedside Glucose 168 mg/dL (70-110)
[2018-10-05] MEDS: Insulin Lispro 100 UNIT/ML INSULN.PEN SC ×2 (17:23→22:11)
[2018-10-05 21:26] LABS: Bedside Glucose 213 mg/dL (70-110)
[2018-10-05 22:00] VITALS: BP 164/84; PULSE 78; RESP 16; TEMP 36.9; O2SAT 97
[2018-10-05] MEDS: MELATONIN 3 MG TABLET PO (22:13)
[2018-10-05] MEDS: Pravastatin 20 MG Tablet 10 MG PO (22:13)
[2018-10-06 03:10] LABS: Bedside Glucose 85 mg/dL (70-110)
[2018-10-06] MEDS: Enoxaparin 40 MG/0.4 ML Syringe SC (06:47)
[2018-10-06] MEDS: HYDROcodone Bitartrate/Apap 5/325 Tablet PO ×3 (06:50→22:22)
[2018-10-06 07:00] VITALS: BP 139/80; PULSE 82; RESP 17; TEMP 37.3; O2SAT 94
--- NOTE | 2018-10-06 07:04 | NURSING ---
during am bath, duragesic patch fell off. this nurse and RN wasting patch. new patch to be applied. patch not due until 10/07.
[2018-10-06 07:10] LABS: Bedside Glucose 89 mg/dL (70-110)
[2018-10-06] MEDS: fentaNYL 25 MCG Patch TRANSDERM. (08:46)
[2018-10-06] MEDS: Senna/Docusate Sodium 1 Tablet 2 TABLET PO ×2 (08:52→08:54)
[2018-10-06] MEDS: Atenolol 25 MG Tablet PO (08:53)
[2018-10-06] MEDS: Aspirin E.C. 81 MG Tablet PO (08:54)
[2018-10-06] MEDS: hydroCHLOROthiazide 25 MG Tablet PO (08:54)
[2018-10-06] MEDS: Methocarbamol 500 MG Tablet PO ×2 (08:54→22:22)
[2018-10-06] MEDS: Meloxicam 7.5 MG Tablet PO ×2 (08:54→22:21)
[2018-10-06] MEDS: Lisinopril 40 MG Tablet PO (08:55)
[2018-10-06 10:52] VITALS: O2SAT 94
[2018-10-06 12:06] LABS: Bedside Glucose 98 mg/dL (70-110)
--- NOTE | 2018-10-06 13:45 | CASEMGMT ---
Social Work SW met with pt in room to discuss advanced care planning. SW explained living will and health care power of corporate associate attorney. Pt would like to complete documents but would like to speak with dgt first to confirm she would be willing to be HCPOA. SW provided written information to pt regarding LW and HCPOA and will check back with pt next week. PT is agreeable. YANELY Jacob
[2018-10-06 16:45] LABS: Bedside Glucose 103 mg/dL (70-110)
--- NOTE | 2018-10-06 16:51 | PCM.PN.HOSP ---
Patient Problems: Active and Suspected Problems (Last Reviewed 09/15/18 @ 08:34 by Harshal Chung MD) Bimalleolar fracture of right ankle (Acute) Other specified noninfective disorders of lymphatic vessels and lymph nodes (Acute) Localized edema (Acute) Subjective: Patient is still on nonweightbearing for right bimalleolar ankle fracture status post ORIF on 10/03. Patient is moving her bowels. Patient has immobilization of right ankle. Vitals/I&O's: Vital Signs Temp Pulse Resp BP Pulse Ox 99.1 F 82 17 139/80 H 94 10/06/18 07:00 10/06/18 07:00 10/06/18 07:00 10/06/18 07:00 10/06/18 10:52 Oxygen Delivery Method Room Air Weight: 168 lb 10.458 oz Body Mass Index (BMI) 28.9 Finger Stick Blood Glucose 77 Intake and Output for Last 24 Hours 10/04/18 10/05/18 10/06/18 23:59 23:59 23:59 Intake Total 720 / 720 480 / 480 Output Total 500 / 500 1300 / 1300 Balance -500 / -500 -580 / -580 480 / 480 General: Alert, Oriented x3, Cooperative HEENT: Atraumatic, PERRLA, EOMI, Normocephalic Neck: Supple, No JVD, Negative Carotid Bruits Lungs: Clear to auscultation, Normal air movement Cardiovascular: Regular rate, Regular Rhythm, Normal S1, Normal S2, No murmurs Abdomen: Bowel Sounds Present, Soft, Non Tender, Non-Distended Extremities: No edema, Capillary Refill Less than 3 Seconds Skin: No rashes, No breakdown Musculoskeletal: No Tenderness to Palpation of Joints or Extremities, Arthritic Changes, - - Right ankle surgical dressing and immobilization Neurological: Cranial nerves II-XII grossly intact Psych/Mental Status: Normal Affect, Appropriate Laboratory Results 10/05/18 16:24: POC Glucose 168 H 10/05/18 21:19: POC Glucose 213 H 10/06/18 03:05: POC Glucose 85 10/06/18 07:04: POC Glucose 89 10/06/18 11:30: POC Glucose 98 10/06/18 16:39: POC Glucose 103 Current Medications Hydrocodone Bitart/Acetaminophen ([place] 5mg-325mg) 2 tablet PO Q6H PRN PRN PRN Reason: SEVERE PAIN (6-10/10) Last Admin: 10/06/18 13:53 Dose: 2 tablet [facility]) [facility] Last Admin: 10/06/18 08:54 Dose: 81 mg Atenolol (Tenormin (Beta Mary)) 25 mg PO DAILY [facility] Last Admin: 10/06/18 08:53 Dose: 25 mg Bisacodyl (Dulcolax) 10 mg RECTAL .PRN X 1 PRN PRN Reason: Constipation Dextrose (D50w Syringe) 0 gm IV X1 PRN; Protocol PRN Reason: Hypoglycemia Enoxaparin Sodium (Lovenox) 40 mg SC DAILY@0600 [facility] Last Admin: 10/06/18 06:47 Dose: 40 mg Fentanyl (Duragesic Patch) 25 mcg TRANSDERM. Q3D [facility] Last Admin: 10/06/18 08:46 Dose: 25 mcg Glucagon () 1 mg IM .X1 PRN PRN Reason: Hypoglycemia Glucagon () 1 mg IM .X1 PRN PRN Reason: Hypoglycemia Glyburide (Micronase) 10 mg PO DAILY@0800 [facility] Last Admin: 10/06/18 08:53 Dose: 10 mg Hydrochlorothiazide (Hctz) 25 mg PO DAILY [facility] Last Admin: 10/06/18 08:54 Dose: 25 mg Insulin Glargine (Lantus (Bkc)) 20 units SC QHS [facility] Last Admin: 10/05/18 22:12 Dose: 20 units Insulin Human Lispro (Humalog Kwikpen (Bkc)) [facility]; Protocol Last Admin: 10/06/18 11:34 Dose: Not Given Lisinopril (Zestril) 40 mg PO DAILY [facility] Last Admin: 10/06/18 08:55 Dose: 40 mg Magnesium Hydroxide (Milk Of Magnesia) 30 ml PO .PRN X 1 PRN PRN Reason: Constipation Melatonin (Melatonin) 3 mg PO QHS PRN PRN PRN Reason: SLEEP Last Admin: 10/05/18 22:13 Dose: 3 mg Meloxicam (Mobic) 7.5 mg PO BID [facility] Last Admin: 10/06/18 08:54 Dose: 7.5 mg Metformin HCl (Glucophage) [facility] Last Admin: 10/06/18 08:53 Dose: 500 mg Methocarbamol (Robaxin) 500 mg PO BID [facility] Last Admin: 10/06/18 08:54 Dose: 500 mg Potassium Chloride (K-Dur) 20 meq [facility] Last Admin: 10/06/18 08:53 Dose: 20 meq Pravastatin Sodium (Pravachol) 10 mg PO QHS [facility] Last Admin: 10/05/18 22:13 Dose: 10 mg Senna/Docusate Sodium (Senokot-S, Jyoti-Colace) 2 tablet PO BID [facility] Last Admin: 10/06/18 08:54 Dose: 2 tablet Medical Necessity - Tobacco Use Smoking Status: Never smoker Assessment/Plan All Active Problems (Last Reviewed 09/15/18 @ 08:34 by Harshal Chung MD) Bimalleolar fracture of right ankle (Acute) Other specified noninfective disorders of lymphatic vessels and lymph nodes (Acute) Localized edema (Acute) Preop cardiovascular exam (Acute) Patient is a 68-year-old female admitted with right bimalleolar ankle fracture who underwent right ankle ORIF on 10/03/2018 by podiatry. Patient was transferred to the inpatient rehab unit following stabilization of her medical condition. 1. Status post right ankle ORIF on 10/03/2018 on account of right bimalleolar ankle fracture. On PT and OT. 2. Hypertension-blood pressure controlled, home medications continued with dose adjustment as needed. Blood pressure is controlled. 139/80. 3. Dyslipidemia-patient is on statin therapy, continued at home dose 4. Diabetes mellitus type II: Controlled on oral hypoglycemics in addition to long acting insulin, Accu-Cheks a.c. and at bedtime and covered with sliding scale insulin 5. DVT prophylaxis SC Lovenox Code Visit Inpatient E&M: 55415 [facility] Hosp L3
[2018-10-06 21:10] LABS: Bedside Glucose 70 mg/dL (70-110)
[2018-10-06 22:00] VITALS: BP 121/92; PULSE 67; RESP 16; TEMP 37.2; O2SAT 97
[2018-10-06 22:00] LABS: Bedside Glucose 100 mg/dL (70-110)
[2018-10-06] MEDS: Pravastatin 20 MG Tablet 10 MG PO (22:21)
[2018-10-06] MEDS: MELATONIN 3 MG TABLET PO (22:22)
[2018-10-07 00:06] LABS: Bedside Glucose 190 mg/dL (70-110)
[2018-10-07 04:41] LABS: Bedside Glucose 97 mg/dL (70-110)
--- NOTE | 2018-10-07 05:04 | NURSING ---
Reviewed and agree with LPNs fims and handoff
[2018-10-07] MEDS: HYDROcodone Bitartrate/Apap 5/325 Tablet PO ×3 (05:27→17:20)
[2018-10-07] MEDS: Enoxaparin 40 MG/0.4 ML Syringe SC (05:27)
[2018-10-07 07:46] LABS: Bedside Glucose 86 mg/dL (70-110)
[2018-10-07] MEDS: Atenolol 25 MG Tablet PO (08:51)
[2018-10-07] MEDS: Meloxicam 7.5 MG Tablet PO ×2 (08:51→20:16)
[2018-10-07] MEDS: Senna/Docusate Sodium 1 Tablet 2 TABLET PO ×2 (08:51→20:15)
[2018-10-07] MEDS: Lisinopril 40 MG Tablet PO (08:51)
[2018-10-07] MEDS: Aspirin E.C. 81 MG Tablet PO (08:52)
[2018-10-07] MEDS: hydroCHLOROthiazide 25 MG Tablet PO (08:52)
[2018-10-07] MEDS: Methocarbamol 500 MG Tablet PO ×2 (08:52→20:14)
[2018-10-07 09:00] VITALS: BP 135/68; PULSE 81; RESP 18; TEMP 36.8; O2SAT 99
[2018-10-07 11:16] LABS: Bedside Glucose 119 mg/dL (70-110)
[2018-10-07 14:44] VITALS: O2SAT 95
--- NOTE | 2018-10-07 15:07 | PCM.PN.HOSP ---
Patient Problems: Active and Suspected Problems (Last Reviewed 09/15/18 @ 08:34 by Harshal Chung MD) Bimalleolar fracture of right ankle (Acute) Other specified noninfective disorders of lymphatic vessels and lymph nodes (Acute) Localized edema (Acute) Subjective: Patient denies any problem with bowel movements or lower urinary tract symptoms. She is happy with the physical therapy and occupational therapy. Vitals/I&O's: Vital Signs Temp Pulse Resp BP Pulse Ox 98.2 F 81 18 135/68 H 95 10/07/18 09:00 10/07/18 09:00 10/07/18 09:00 10/07/18 09:00 10/07/18 14:44 Oxygen Delivery Method Room Air Weight: 168 lb 10.458 oz Body Mass Index (BMI) 28.9 Finger Stick Blood Glucose 77 Intake and Output for Last 24 Hours 10/05/18 10/06/18 10/07/18 23:59 23:59 23:59 Intake Total 720 / 720 480 / 480 360 / 360 Output Total 1300 / 1300 Balance -580 / -580 480 / 480 360 / 360 General: Alert, Oriented x3, Cooperative HEENT: Atraumatic, PERRLA, EOMI, Normocephalic Neck: Supple, No JVD, Negative Carotid Bruits Lungs: Clear to auscultation, Normal air movement, No rhonchi, No wheeze, No rales Cardiovascular: Regular rate, Regular Rhythm, Normal S1, Normal S2, No murmurs Abdomen: Bowel Sounds Present, Soft, Non Tender, Non-Distended Extremities: No edema, Capillary Refill Less than 3 Seconds Skin: No rashes, No breakdown Musculoskeletal: No Tenderness to Palpation of Joints or Extremities, Arthritic Changes, - - She has immobilization of right ankle with Sen wrap bandage below knee Neurological: Cranial nerves II-XII grossly intact, Neuro grossly intact, Motor Exam 5/5 strength throughout - Except right knee and ankle Psych/Mental Status: Normal Affect, Appropriate Laboratory Results 10/06/18 16:39: POC Glucose 103 10/06/18 21:02: POC Glucose 70 10/06/18 21:53: POC Glucose 100 10/06/18 23:59: POC Glucose 190 H 10/07/18 04:34: POC Glucose 97 10/07/18 06:50: POC Glucose 86 10/07/18 11:10: POC Glucose 119 H Current Medications Hydrocodone Bitart/Acetaminophen ([place] 5mg-325mg) 2 tablet PO Q6H PRN PRN PRN Reason: SEVERE PAIN (6-08/09) Last Admin: 10/07/18 11:36 Dose: 2 tablet Aspirin (Ecotrin) 81 mg PO DAILYCM [facility] Last Admin: 10/07/18 08:52 Dose: 81 mg Atenolol (Tenormin (Beta Mary)) 25 mg PO DAILY [facility] Last Admin: 10/07/18 08:51 Dose: 25 mg Bisacodyl (Dulcolax) 10 mg RECTAL .PRN X 1 PRN PRN Reason: Constipation Dextrose (D50w Syringe) 0 gm IV X1 PRN; Protocol PRN Reason: Hypoglycemia Enoxaparin Sodium (Lovenox) 40 mg SC DAILY@0600 [facility] Last Admin: 10/07/18 05:27 Dose: 40 mg Fentanyl (Duragesic Patch) 25 mcg TRANSDERM. Q3D [facility] Last Admin: 10/06/18 08:46 Dose: 25 mcg Glucagon () 1 mg IM .X1 PRN PRN Reason: Hypoglycemia Glucagon () 1 mg IM .X1 PRN PRN Reason: Hypoglycemia Glyburide (Micronase) 10 mg PO DAILY@0800 [facility] Last Admin: 10/07/18 09:02 Dose: 10 mg Hydrochlorothiazide (Hctz) 25 mg PO DAILY [facility] Last Admin: 10/07/18 08:52 Dose: 25 mg Insulin Glargine (Lantus (Bkc)) 20 units SC QHS [facility] Last Admin: 10/06/18 21:30 Dose: Not Given Insulin Human Lispro (Humalog Kwikpen (Bkc)) 0 unit SC ACHS [facility]; Protocol Last Admin: 10/07/18 11:12 Dose: Not Given Lisinopril (Zestril) 40 mg PO DAILY [facility] Last Admin: 10/07/18 08:51 Dose: 40 mg Magnesium Hydroxide (Milk Of Magnesia) 30 ml PO .PRN X 1 PRN PRN Reason: Constipation Melatonin (Melatonin) 3 mg PO QHS PRN PRN PRN Reason: SLEEP Last Admin: 10/06/18 22:22 Dose: 3 mg Meloxicam (Mobic) 7.5 mg PO BID [facility] Last Admin: 10/07/18 08:51 Dose: 7.5 mg Metformin [facility] (Gluc[facility]) [facility] Last Admin: 10/07/18 08:51 Dose: 500 mg Methocarbamol (Robaxin) 500 mg PO BID [facility] Last Admin: 10/07/18 08:52 Dose: 500 mg Potassium Chloride (K-Dur) 20 meq PO BIDCM [facility] Last Admin: 10/07/18 08:51 Dose: 20 meq Pravastatin Sodium (Pravachol) 10 mg PO QHS [facility] Last Admin: 10/06/18 22:21 Dose: 10 mg Senna/Docusate Sodium (Senokot-S, Jyoti-Colace) 2 tablet PO BID [facility] Last Admin: 10/07/18 08:51 Dose: 2 tablet Medical Necessity - Tobacco Use Smoking Status: Never smoker Assessment/Plan All Active Problems (Last Reviewed 09/15/18 @ 08:34 by Harshal Chung MD) Bimalleolar fracture of right ankle (Acute) Other specified noninfective disorders of lymphatic vessels and lymph nodes (Acute) Localized edema (Acute) Preop cardiovascular exam (Acute) Patient is a 68-year-old female admitted with right bimalleolar ankle fracture who underwent right ankle ORIF on 10/03/2018 by podiatry. Patient was transferred to the inpatient rehab unit following stabilization of her medical condition. 1. Status post right ankle ORIF on 10/03/2018 on account of right bimalleolar ankle fracture. Continue PT and OT. 2. Hypertension-blood pressure controlled, home medications continued with dose adjustment as needed. Blood pressure is controlled. 139/80. 3. Dyslipidemia-patient is on statin therapy, continued at home dose 4. Diabetes mellitus type II: Controlled on oral hypoglycemics in addition to long acting insulin, Accu-Cheks a.c. and at bedtime and covered with sliding scale insulin. Blood sugar is well controlled. 5. DVT prophylaxis SC Lovenox Laboratory Results 10/06/18 16:39: POC Glucose 103 10/06/18 21:02: POC Glucose 70 10/06/18 21:53: POC Glucose 100 10/06/18 23:59: POC Glucose 190 H 10/07/18 04:34: POC Glucose 97 10/07/18 06:50: POC Glucose 86 10/07/18 11:10: POC Glucose 119 H Code Visit Inpatient E&M: [id number] Subs Hosp L2
--- NOTE | 2018-10-07 15:11 | PN_ITS ---
Patient Problems: Active and Suspected Problems (Last Reviewed 09/15/18 @ 08:34 by Harshal Chung MD) Bimalleolar fracture of right ankle (Acute) Other specified noninfective disorders of lymphatic vessels and lymph nodes (Acute) Localized edema (Acute) Subjective: Patient denies any problem with bowel movements or lower urinary tract symptoms. She is happy with the physical therapy and occupational therapy. Vitals/I&O's: Vital Signs Temp Pulse Resp BP Pulse Ox 98.2 F 81 18 135/68 H 95 10/07/18 09:00 10/07/18 09:00 10/07/18 09:00 10/07/18 09:00 10/07/18 14:44 Oxygen Delivery Method Room Air Weight: 168 lb 10.458 oz Body Mass Index (BMI) 28.9 Finger Stick Blood Glucose 77 Intake and Output for Last 24 Hours 10/05/18 10/06/18 10/07/18 23:59 23:59 23:59 Intake Total 720 / 720 480 / 480 360 / 360 Output Total 1300 / 1300 Balance -580 / -580 480 / 480 360 / 360 General: Alert, Oriented x3, Cooperative HEENT: Atraumatic, PERRLA, EOMI, Normocephalic Neck: Supple, No JVD, Negative Carotid Bruits Lungs: Clear to auscultation, Normal air movement, No rhonchi, No wheeze, No rales Cardiovascular: Regular rate, Regular Rhythm, Normal S1, Normal S2, No murmurs Abdomen: Bowel Sounds Present, Soft, Non Tender, Non-Distended Extremities: No edema, Capillary Refill Less than 3 Seconds Skin: No rashes, No breakdown Musculoskeletal: No Tenderness to Palpation of Joints or Extremities, Arthritic Changes, - - She has immobilization of right ankle with Sen wrap bandage below knee Neurological: Cranial nerves II-XII grossly intact, Neuro grossly intact, Motor Exam 5/5 strength throughout - Except right knee and ankle Psych/Mental Status: Normal Affect, Appropriate Laboratory Results 10/06/18 16:39: POC Glucose 103 10/06/18 21:02: POC Glucose 70 10/06/18 21:53: POC Glucose 100 10/06/18 23:59: POC Glucose 190 H 10/07/18 04:34: POC Glucose 97 10/07/18 06:50: POC Glucose 86 10/07/18 11:10: POC Glucose 119 H Current Medications Hydrocodone Bitart/Acetaminophen ([place] 5mg-325mg) 2 tablet PO Q6H PRN PRN PRN Reason: SEVERE PAIN (6-08/09) Last Admin: 10/07/18 11:36 Dose: 2 tablet Aspirin (Ecotrin) 81 mg PO DAILYCM [facility] Last Admin: 10/07/18 08:52 Dose: 81 mg Atenolol (Tenormin (Beta Mary)) 25 mg PO DAILY [facility] Last Admin: 10/07/18 08:51 Dose: 25 mg Bisacodyl (Dulcolax) 10 mg RECTAL .PRN X 1 PRN PRN Reason: Constipation Dextrose (D50w Syringe) 0 gm IV X1 PRN; Protocol PRN Reason: Hypoglycemia Enoxaparin Sodium (Lovenox) 40 mg SC DAILY@0600 [facility] Last Admin: 10/07/18 05:27 Dose: 40 mg Fentanyl (Duragesic Patch) 25 mcg TRANSDERM. Q3D [facility] Last Admin: 10/06/18 08:46 Dose: 25 mcg Glucagon () 1 mg IM .X1 PRN PRN Reason: Hypoglycemia Glucagon () 1 mg IM .X1 PRN PRN Reason: Hypoglycemia Glyburide (Micronase) 10 mg PO DAILY@0800 [facility] Last Admin: 10/07/18 09:02 Dose: 10 mg Hydrochlorothiazide (Hctz) 25 mg PO DAILY [facility] Last Admin: 10/07/18 08:52 Dose: 25 mg Insulin Glargine (Lantus (Bkc)) 20 units SC QHS [facility] Last Admin: 10/06/18 21:30 Dose: Not Given Insulin Human Lispro (Humalog Kwikpen (Bkc)) 0 unit SC ACHS [facility]; Protocol Last Admin: 10/07/18 11:12 Dose: Not Given Lisinopril (Zestril) 40 mg PO DAILY [facility] Last Admin: 10/07/18 08:51 Dose: 40 mg Magnesium Hydroxide (Milk Of Magnesia) 30 ml PO .PRN X 1 PRN PRN Reason: Constipation Melatonin (Melatonin) 3 mg PO QHS PRN PRN PRN Reason: SLEEP Last Admin: 10/06/18 22:22 Dose: 3 mg Meloxicam (Mobic) 7.5 mg PO BID [facility] Last Admin: 10/07/18 08:51 Dose: 7.5 mg [facility] ([facility]) [facility] Last Admin: 10/07/18 08:51 Dose: 500 mg Methocarbamol (Robaxin) 500 mg PO BID [facility] Last Admin: 10/07/18 08:52 Dose: 500 mg Potassium Chloride (K-Dur) 20 meq PO BIDCM [facility] Last Admin: 10/07/18 08:51 Dose: 20 meq Pravastatin Sodium (Pravachol) 10 mg PO QHS [facility] Last Admin: 10/06/18 22:21 Dose: 10 mg Senna/Docusate Sodium (Senokot-S, Jyoti-Colace) 2 tablet PO BID [facility] Last Admin: 10/07/18 08:51 Dose: 2 tablet Medical Necessity - Tobacco Use Smoking Status: Never smoker Assessment/Plan All Active Problems (Last Reviewed 09/15/18 @ 08:34 by Harshal Chung MD) Bimalleolar fracture of right ankle (Acute) Other specified noninfective disorders of lymphatic vessels and lymph nodes (Acute) Localized edema (Acute) Preop cardiovascular exam (Acute) Patient is a 68-year-old female admitted with right bimalleolar ankle fracture who underwent right ankle ORIF on 10/03/2018 by podiatry. Patient was transferred to the inpatient rehab unit following stabilization of her medical condition. 1. Status post right ankle ORIF on 10/03/2018 on account of right bimalleolar ankle fracture. Continue PT and OT. 2. Hypertension-blood pressure controlled, home medications continued with dose adjustment as needed. Blood pressure is controlled. 139/80. 3. Dyslipidemia-patient is on statin therapy, continued at home dose 4. Diabetes mellitus type II: Controlled on oral hypoglycemics in addition to long acting insulin, Accu-Cheks a.c. and at bedtime and covered with sliding scale insulin. Blood sugar is well controlled. 5. DVT prophylaxis SC Lovenox Laboratory Results 10/06/18 16:39: POC Glucose 103 10/06/18 21:02: POC Glucose 70 10/06/18 21:53: POC Glucose 100 10/06/18 23:59: POC Glucose 190 H 10/07/18 04:34: POC Glucose 97 10/07/18 06:50: POC Glucose 86 10/07/18 11:10: POC Glucose 119 H Code Visit Inpatient E&M: [id number] Subs Hosp L2
[2018-10-07 16:21] LABS: Bedside Glucose 93 mg/dL (70-110)
[2018-10-07] MEDS: Pravastatin 20 MG Tablet 10 MG PO (20:16)
[2018-10-07 20:20] VITALS: BP 168/71; PULSE 76; RESP 20; TEMP 36.8; O2SAT 98
[2018-10-07 21:21] LABS: Bedside Glucose 95 mg/dL (70-110)
[2018-10-07] MEDS: MELATONIN 3 MG TABLET PO (22:15)
[2018-10-08 02:46] LABS: Bedside Glucose 94 mg/dL (70-110)
[2018-10-08] MEDS: HYDROcodone Bitartrate/Apap 5/325 Tablet PO ×4 (02:51→22:20)
--- NOTE | 2018-10-08 02:52 | NURSING ---
PT PROVIDED MILK AND PEANUT BUTTER AND COOKIES SNACK AFTER BLOOD SUGAR READING OF 94.
--- NOTE | 2018-10-08 03:49 | NURSING ---
PT REPORTS PAIN UNCHANGED SINCE RECEIVING NORCO. PT AGREEABLE TO SITTING IN RECLINER FOR A CHANGE OF POSITIONING TO SEE IF OBTAINS ADDITIONAL PAIN RELIEF. WILL REASSESS SHORTLY.
--- NOTE | 2018-10-08 05:36 | NURSING ---
PT AWAKE IN RECLINER. STATES PAIN IS UNRELENTING. [facility] DEPENDENCY COUNSELOR TO [facility].
[2018-10-08] MEDS: Enoxaparin 40 MG/0.4 ML Syringe SC (05:57)
--- NOTE | 2018-10-08 06:11 | NURSING ---
DR STEVENSON NOTIFIED OF PT'S UNRELENTING PAIN. ORDER GIVEN.
[2018-10-08] MEDS: oxyCODONE 5 MG Tablet PO (06:27)
[2018-10-08 06:55] LABS: Bedside Glucose 161 mg/dL (70-110)
[2018-10-08 07:00] VITALS: O2SAT 99
[2018-10-08 07:12] VITALS: BP 126/81; PULSE 88; RESP 14; TEMP 36.7; O2SAT 99
[2018-10-08] MEDS: hydroCHLOROthiazide 25 MG Tablet PO (07:41)
[2018-10-08] MEDS: Meloxicam 7.5 MG Tablet PO ×2 (07:41→21:52)
[2018-10-08] MEDS: Atenolol 25 MG Tablet PO (07:42)
[2018-10-08] MEDS: Senna/Docusate Sodium 1 Tablet 2 TABLET PO ×2 (07:42→21:52)
[2018-10-08] MEDS: Lisinopril 40 MG Tablet PO (07:42)
[2018-10-08] MEDS: Methocarbamol 500 MG Tablet PO ×2 (07:42→21:52)
[2018-10-08] MEDS: Aspirin E.C. 81 MG Tablet PO (07:43)
[2018-10-08] MEDS: Insulin Lispro 100 UNIT/ML INSULN.PEN SC (07:44)
[2018-10-08 11:11] LABS: Bedside Glucose 82 mg/dL (70-110)
[2018-10-08 16:41] LABS: Bedside Glucose 144 mg/dL (70-110)
[2018-10-08 21:30] VITALS: BP 136/69; PULSE 85; RESP 16; TEMP 36.8; O2SAT 97
[2018-10-08] MEDS: MELATONIN 3 MG TABLET PO (21:52)
[2018-10-08] MEDS: Pravastatin 20 MG Tablet 10 MG PO (21:52)
[2018-10-08 23:46] LABS: Bedside Glucose 147 mg/dL (70-110)
[2018-10-09 03:16] LABS: Bedside Glucose 60 mg/dL (70-110)
[2018-10-09 03:41] LABS: Bedside Glucose 78 mg/dL (70-110)
--- NOTE | 2018-10-09 03:42 | NURSING ---
0315 accu-check completed as per order and pt awake and up to the br. blood sugar is 60 at this time and pt reports some mild shaking. pt given snack of peanut butter crackers and milk 0330 blood sugar rechecked at this time and was trending up with value of 78. pt reports she is starting to feel better and rn made aware of values and pt status
[2018-10-09] MEDS: HYDROcodone Bitartrate/Apap 5/325 Tablet PO ×3 (06:33→20:21)
[2018-10-09] MEDS: Enoxaparin 40 MG/0.4 ML Syringe SC (06:33)
[2018-10-09 06:36] LABS: Bedside Glucose 120 mg/dL (70-110)
[2018-10-09 07:11] LABS: Bedside Glucose 57 mg/dL (70-110)
[2018-10-09 07:11] LABS: Bedside Glucose 51 mg/dL (70-110)
[2018-10-09 07:43] VITALS: BP 151/81; PULSE 96; RESP 12; TEMP 37.1; O2SAT 97
--- NOTE | 2018-10-09 09:20 | CASEMGMT ---
Team meeting held. Patient present, no family present at this time. Patient agreeable to this socia worker contacting patient daughter, Jenny in regards to team meeting. Patient approved 15 Medicare days with discharge on or by 10/19/18, no discharge date set at this time. Patient to continue with further care and treatment on the Inpatient Rehab Unit. Patient plans to discharge to home alone at time of discharge, therapy voicing to believe that patient will be able to transition to home by or on 10/19/18. Patient reporting to have a wheelchair and walker already set up within the home. Patient to be re-teamed next week. Telephone call to Jenny, alexandra social worker psychiatric providing with above information. Jenny agreeable to plan. Support given. Will continue to follow. JESSICA CarpioW, BEAD MAKER
--- NOTE | 2018-10-09 10:50 | PCM.PN.NEU ---
Patient Problems: Active and Suspected Problems (Last Reviewed 09/15/18 @ 08:34 by Harshal Chung MD) Bimalleolar fracture of right ankle (Acute) Other specified noninfective disorders of lymphatic vessels and lymph nodes (Acute) Localized edema (Acute) Subjective: Staffed in team meeting. Family was not at bedside, the transportation worker will call and update the daughter after the team meeting. With Physical therapy, with transfers, getting in and out of the bed she requires a light hand for leg support only. She is able to stand and pivot using the wheel chair with just a light hand. With wheelchair mobility she is stand by assist, she is able to go over different surfaces without any difficulty, will focus in the next week on strengthening her upper body. With Occupational therapy, she is able to do her own personal care and toileting at contact guard. She is able to bath and do personal grooming at set up and sitting at sink level. She is min assist for lower body, she is able to put on her pants if she lies in the bed and roll from side to side and pull up her pants over her hips. She is only able to stand for about two minutes before becoming tired and needing to sit down. With Nursing, her Blood sugar starts to drop around 3am, she has a snack and by morning she is back to normal. Her pain is well controlled on current medications. The plan is to re-team her again on Tuesday 10/16. - Physical Exam General: Alert, Oriented x3, Cooperative HEENT: Atraumatic, PERRLA, EOMI, Normocephalic Neck: Supple, No JVD, Negative Carotid Bruits Lungs: Clear to auscultation, Normal air movement Cardiovascular: Regular rate, No murmurs Abdomen: Bowel Sounds Present, Soft, Non Tender Extremities: No edema, Capillary Refill Less than 3 Seconds Skin: No rashes, No breakdown Musculoskeletal: No Tenderness to Palpation of Joints or Extremities Neurological: Cranial nerves II-XII grossly intact Psych/Mental Status: Normal Affect, Appropriate, Alert and oriented to time, place, person, mood and affect Vital Signs Temp Pulse Resp BP Pulse Ox 98.7 F 96 12 151/81 H 97 10/09/18 07:43 10/09/18 07:43 10/09/18 07:43 10/09/18 07:43 10/09/18 07:43 Oxygen Delivery Method Room Air Weight: 76.5 kg Body Mass Index (BMI) 28.9 Finger Stick Blood Glucose 77 Intake and Output for Last 24 Hours 10/07/18 10/08/18 10/09/18 23:59 23:59 23:59 Intake Total 600 / 600 720 / 720 240 / 240 Balance 600 / 600 720 / 720 240 / 240 POC Glucose 10/09/18 10/09/18 10/09/18 06:21 03:33 03:11 POC Glucose 120 H 78 60 L 10/08/18 10/08/18 10/08/18 21:48 16:35 11:08 POC Glucose 147 H 144 H 82 10/06/18 10/06/18 21:31 21:25 POC Glucose 57 L 51 L Active Medications Hydrocodone Bitart/Acetaminophen ([place] 5mg-325mg) 2 tablet PO Q6H PRN PRN PRN Reason: SEVERE PAIN (6-1010) Last Admin: 10/09/18 06:33 Dose: 2 tablet [facility] Last Admin: 10/08/18 07:43 Dose: 81 mg Atenolol (Tenormin (Beta Mary)) 25 mg PO DAILY [facility] Last Admin: 10/08/18 07:42 Dose: 25 mg Bisacodyl (Dulcolax) 10 mg RECTAL .PRN X 1 PRN PRN Reason: Constipation Dextrose (D50w Syringe) 0 gm IV X1 PRN; Protocol PRN Reason: Hypoglycemia Enoxaparin Sodium (Lovenox) 40 mg SC DAILY@0600 [facility] Last Admin: 10/09/18 06:33 Dose: 40 mg Fentanyl (Duragesic Patch) 25 mcg TRANSDERM. Q3D [facility] Last Admin: 10/06/18 08:46 Dose: 25 mcg Glucagon () 1 mg IM .X1 PRN PRN Reason: Hypoglycemia Glucagon () 1 mg IM .X1 PRN PRN Reason: Hypoglycemia Glyburide (Micronase) 10 mg PO DAILY@0800 [facility] Last Admin: 10/08/18 08:20 Dose: 10 mg Hydrochlorothiazide (Hctz) 25 mg PO DAILY [facility] Last Admin: 10/08/18 07:41 Dose: 25 mg Insulin Glargine (Lantus (Bkc)) 20 units SC QHS [facility] Last Admin: 10/08/18 21:51 Dose: 20 units Insulin Human Lispro (Humalog Kwikpen (Bkc)) 0 unit SC ACHS [facility]; Protocol Last Admin: 10/09/18 06:38 Dose: Not Given Lisinopril (Zestril) 40 mg PO DAILY [facility] Last Admin: 10/08/18 07:42 Dose: 40 mg Magnesium Hydroxide (Milk Of Magnesia) 30 ml PO .PRN X 1 PRN PRN Reason: Constipation Melatonin (Melatonin) 3 mg PO QHS PRN PRN PRN Reason: SLEEP Last Admin: 10/08/18 21:52 Dose: 3 mg Meloxicam (Mobic) 7.5 mg PO BID [facility] Last Admin: 10/08/18 21:52 Dose: 7.5 mg Metformin HCl (Glucophage) [facility] Last Admin: 10/08/18 17:12 Dose: 500 mg Methocarbamol (Robaxin) 500 mg PO BID [facility] Last Admin: 10/08/18 21:52 Dose: 500 mg Potassium Chloride (K-Dur) [facility] Last Admin: 10/08/18 17:12 Dose: 20 meq Pravastatin Sodium (Pravachol) 10 mg PO QHS [facility] Last Admin: 10/08/18 21:52 Dose: 10 mg Senna/Docusate Sodium (Senokot-S, Jyoti-Colace) 2 tablet PO BID [facility] Last Admin: 10/08/18 21:52 Dose: 2 tablet Medical Necessity - Tobacco Use Smoking Status: Never smoker Assessment/Plan All Active Problems (Last Reviewed 09/15/18 @ 08:34 by Harshal Chung MD) Bimalleolar fracture of right ankle (Acute) Other specified noninfective disorders of lymphatic vessels and lymph nodes (Acute) Localized edema (Acute) Preop cardiovascular exam (Acute) Debility s/p right bimalleolar ankle fracture/ORIF of right ankle, complicated by Osteoarthritis in her left hip, HTN, HLD, and DM II. Goal of rehab is anglican of functional independence. Plan: - Physical therapy for gait and balance - Occupational Therapy for ADLs - As needed analgesics - Bowel protocol - DVT prophylaxis: SCDs, ASA, Lovenox - Hypertension: Stable with good control, continue HCTZ, and Lisinopril, with dose adjustment as needed - Diabetes type 2 => Controlled ON oral hypoglycemics in addition to long acting insulin, Accu-Cheks a.c. and at bedtime and covered with sliding scale insulin - Right ankle ORIF- Cast dry, clean and intact - HLD - continue home dose of Statin - Weight bearing status - non weight bearing on right lower extremity - Acute pain management - Fentanyl patch 25mcq, [place], and Robaxin for muscle spasms in right calf - Fall precautions - AM Hypoglycemia = give a Snack at bed time
--- NOTE | 2018-10-09 11:05 | PN.NEURO_ITS ---
Patient Problems: Active and Suspected Problems (Last Reviewed 09/15/18 @ 08:34 by Harshal Chung MD) Bimalleolar fracture of right ankle (Acute) Other specified noninfective disorders of lymphatic vessels and lymph nodes (Acute) Localized edema (Acute) Subjective: Staffed in team meeting. Family was not at bedside, the progress worker will call and update the daughter after the team meeting. With Physical therapy, with transfers, getting in and out of the bed she requires a light hand for leg support only. She is able to stand and pivot using the wheel chair with just a light hand. With wheelchair mobility she is stand by assist, she is able to go over different surfaces without any difficulty, will focus in the next week on strengthening her upper body. With Occupational therapy, she is able to do her own personal care and toileting at contact guard. She is able to bath and do personal grooming at set up and sitting at sink level. She is min assist for lower body, she is able to put on her pants if she lies in the bed and roll from side to side and pull up her pants over her hips. She is only able to stand for about two minutes before becoming tired and needing to sit down. With Nursing, her Blood sugar starts to drop around 3am, she has a snack and by morning she is back to normal. Her pain is well controlled on current medications. The plan is to re-team her again on Tuesday 10/16. - Physical Exam General: Alert, Oriented x3, Cooperative HEENT: Atraumatic, PERRLA, EOMI, Normocephalic Neck: Supple, No JVD, Negative Carotid Bruits Lungs: Clear to auscultation, Normal air movement Cardiovascular: Regular rate, No murmurs Abdomen: Bowel Sounds Present, Soft, Non Tender Extremities: No edema, Capillary Refill Less than 3 Seconds Skin: No rashes, No breakdown Musculoskeletal: No Tenderness to Palpation of Joints or Extremities Neurological: Cranial nerves II-XII grossly intact Psych/Mental Status: Normal Affect, Appropriate, Alert and oriented to time, place, person, mood and affect Vital Signs Temp Pulse Resp BP Pulse Ox 98.7 F 96 12 151/81 H 97 10/09/18 07:43 10/09/18 07:43 10/09/18 07:43 10/09/18 07:43 10/09/18 07:43 Oxygen Delivery Method Room Air Weight: 76.5 kg Body Mass Index (BMI) 28.9 Finger Stick Blood Glucose 77 Intake and Output for Last 24 Hours 10/07/18 10/08/18 10/09/18 23:59 23:59 23:59 Intake Total 600 / 600 720 / 720 240 / 240 Balance 600 / 600 720 / 720 240 / 240 POC Glucose 10/09/18 10/09/18 10/09/18 06:21 03:33 03:11 POC Glucose 120 H 78 60 L 10/08/18 10/08/18 10/08/18 21:48 16:35 11:08 POC Glucose 147 H 144 H 82 10/06/18 10/06/18 21:31 21:25 POC Glucose 57 L 51 L Active Medications Hydrocodone Bitart/Acetaminophen ([place] 5mg-325mg) 2 tablet PO Q6H PRN PRN PRN Reason: SEVERE PAIN (6-1010) Last Admin: 10/09/18 06:33 Dose: 2 tablet [facility] Last Admin: 10/08/18 07:43 Dose: 81 mg Atenolol (Tenormin (Beta Mary)) 25 mg PO DAILY [facility] Last Admin: 10/08/18 07:42 Dose: 25 mg Bisacodyl (Dulcolax) 10 mg RECTAL .PRN X 1 PRN PRN Reason: Constipation Dextrose (D50w Syringe) 0 gm IV X1 PRN; Protocol PRN Reason: Hypoglycemia Enoxaparin Sodium (Lovenox) 40 mg SC DAILY@0600 [facility] Last Admin: 10/09/18 06:33 Dose: 40 mg Fentanyl (Duragesic Patch) 25 mcg TRANSDERM. Q3D [facility] Last Admin: 10/06/18 08:46 Dose: 25 mcg Glucagon () 1 mg IM .X1 PRN PRN Reason: Hypoglycemia Glucagon () 1 mg IM .X1 PRN PRN Reason: Hypoglycemia Glyburide (Micronase) 10 mg PO DAILY@0800 [facility] Last Admin: 10/08/18 08:20 Dose: 10 mg Hydrochlorothiazide (Hctz) 25 mg PO DAILY [facility] Last Admin: 10/08/18 07:41 Dose: 25 mg Insulin Glargine (Lantus (Bkc)) 20 units SC QHS [facility] Last Admin: 10/08/18 21:51 Dose: 20 units Insulin Human Lispro (Humalog Kwikpen (Bkc)) 0 unit SC ACHS [facility]; Protocol Last Admin: 10/09/18 06:38 Dose: Not Given Lisinopril (Zestril) 40 mg PO DAILY [facility] Last Admin: 10/08/18 07:42 Dose: 40 mg Magnesium Hydroxide (Milk Of Magnesia) 30 ml PO .PRN X 1 PRN PRN Reason: Constipation Melatonin (Melatonin) 3 mg PO QHS PRN PRN PRN Reason: SLEEP Last Admin: 10/08/18 21:52 Dose: 3 mg Meloxicam (Mobic) 7.5 mg PO BID [facility] Last Admin: 10/08/18 21:52 Dose: 7.5 mg Met[facility] ([facility]) [facility] Last Admin: 10/08/18 17:12 Dose: 500 mg Methocarbamol (Robaxin) 500 mg PO BID [facility] Last Admin: 10/08/18 21:52 Dose: 500 mg Potassium Chloride (K-Dur) [facility] Last Admin: 10/08/18 17:12 Dose: 20 meq Pravastatin Sodium (Pravachol) 10 mg PO QHS [facility] Last Admin: 10/08/18 21:52 Dose: 10 mg Senna/Docusate Sodium (Senokot-S, Jyoti-Colace) 2 tablet PO BID [facility] Last Admin: 10/08/18 21:52 Dose: 2 tablet Medical Necessity - Tobacco Use Smoking Status: Never smoker Assessment/Plan All Active Problems (Last Reviewed 09/15/18 @ 08:34 by Harshal Chung MD) Bimalleolar fracture of right ankle (Acute) Other specified noninfective disorders of lymphatic vessels and lymph nodes (Acute) Localized edema (Acute) Preop cardiovascular exam (Acute) Debility s/p right bimalleolar ankle fracture/ORIF of right ankle, complicated by Osteoarthritis in her left hip, HTN, HLD, and DM II. Goal of rehab is religion of functional independence. Plan: - Physical therapy for gait and balance - Occupational Therapy for ADLs - As needed analgesics - Bowel protocol - DVT prophylaxis: SCDs, ASA, Lovenox - Hypertension: Stable with good control, continue HCTZ, and Lisinopril, with dose adjustment as needed - Diabetes type 2 => Controlled ON oral hypoglycemics in addition to long acting insulin, Accu-Cheks a.c. and at bedtime and covered with sliding scale insulin - Right ankle ORIF- Cast dry, clean and intact - HLD - continue home dose of Statin - Weight bearing status - non weight bearing on right lower extremity - Acute pain management - Fentanyl patch 25mcq, [place], and Robaxin for muscle spasms in right calf - Fall precautions - AM Hypoglycemia = give a Snack at bed time
[2018-10-09 11:50] LABS: Bedside Glucose 150 mg/dL (70-110)
[2018-10-09] MEDS: Senna/Docusate Sodium 1 Tablet 2 TABLET PO ×2 (11:53→22:11)
[2018-10-09] MEDS: Meloxicam 7.5 MG Tablet PO ×2 (11:54→22:10)
[2018-10-09] MEDS: Aspirin E.C. 81 MG Tablet PO (11:54)
[2018-10-09] MEDS: hydroCHLOROthiazide 25 MG Tablet PO (11:54)
[2018-10-09] MEDS: Atenolol 25 MG Tablet PO (11:55)
[2018-10-09] MEDS: Methocarbamol 500 MG Tablet PO ×2 (11:55→22:10)
[2018-10-09] MEDS: Lisinopril 40 MG Tablet PO (11:55)
[2018-10-09] MEDS: Insulin Lispro 100 UNIT/ML INSULN.PEN SC (11:56)
--- NOTE | 2018-10-09 16:54 | CHAPLAIN ---
Type of Pastoral Visit ___ Initial Visit _x__ Follow-up Visit ___ On-call Visit ___ General Patient Visit ___ Spiritual Assessment ___ Family Conference ___ Bereavement ___ Rapid Response ___ Code Blue ___ Other (describe below) Pastoral Care Referral From ___ Patient ___ Family ___ Nurse ___ Physician ___ Recruitment Manager ___ Mental Health Therapist ___ Other (describe below) Sacrament/Intervention _x__ Active listening ___ Anointing ___ Christian ___ Bereavement ___ Communion ___ Susan exploration ___ ___ Life review ___ Prayer ___ Reconciliation ___ Sacrament of Sick ___ Supportive presence ___ Wedding ___ Other (describe below) Pastoral Comments
[2018-10-09 17:04] LABS: Bedside Glucose 71 mg/dL (70-110)
[2018-10-09 19:37] VITALS: BP 149/74; PULSE 83; RESP 16; TEMP 37; O2SAT 95
[2018-10-09] MEDS: Pravastatin 20 MG Tablet 10 MG PO (22:10)
[2018-10-09] MEDS: MELATONIN 3 MG TABLET PO (22:14)
[2018-10-09 22:30] VITALS: PULSE 83; RESP 16; O2SAT 95
[2018-10-09 22:50] LABS: Bedside Glucose 148 mg/dL (70-110)
[2018-10-10] MEDS: HYDROcodone Bitartrate/Apap 5/325 Tablet PO ×4 (03:16→23:43)
[2018-10-10 03:26] LABS: Bedside Glucose 110 mg/dL (70-110)
--- NOTE | 2018-10-10 05:02 | NURSING ---
Reviewed and agree with AUTOMOTIVE DESIGN DRAFTER documentation and FIMs charting.
[2018-10-10] MEDS: Enoxaparin 40 MG/0.4 ML Syringe SC (05:21)
[2018-10-10 07:21] LABS: Bedside Glucose 69 mg/dL (70-110)
[2018-10-10 08:40] LABS: Bedside Glucose 174 mg/dL (70-110)
[2018-10-10 09:14] VITALS: BP 139/72; PULSE 88; RESP 16; TEMP 36.9; O2SAT 98
[2018-10-10] MEDS: Meloxicam 7.5 MG Tablet PO ×2 (09:30→22:47)
[2018-10-10] MEDS: Lisinopril 40 MG Tablet PO (09:30)
[2018-10-10] MEDS: hydroCHLOROthiazide 25 MG Tablet PO (09:30)
[2018-10-10] MEDS: Senna/Docusate Sodium 1 Tablet 2 TABLET PO ×2 (09:30→22:46)
[2018-10-10] MEDS: Atenolol 25 MG Tablet PO (09:30)
[2018-10-10] MEDS: Methocarbamol 500 MG Tablet PO ×2 (09:30→22:47)
[2018-10-10] MEDS: Aspirin E.C. 81 MG Tablet PO (09:30)
--- NOTE | 2018-10-10 11:42 | PCM.PN.NEU ---
Patient Problems: Active and Suspected Problems (Last Reviewed 09/15/18 @ 08:34 by Harshal Chung MD) Bimalleolar fracture of right ankle (Acute) Other specified noninfective disorders of lymphatic vessels and lymph nodes (Acute) Localized edema (Acute) Subjective: No new complaints, tolerating therapy. - Physical Exam General: Alert, Oriented x3, Cooperative HEENT: Atraumatic, PERRLA, EOMI, Normocephalic Neck: Supple, No JVD, Negative Carotid Bruits Lungs: Clear to auscultation, Normal air movement Cardiovascular: Regular rate, No murmurs Abdomen: Bowel Sounds Present, Soft, Non Tender Extremities: No edema, Capillary Refill Less than 3 Seconds Skin: No rashes, No breakdown Musculoskeletal: No Tenderness to Palpation of Joints or Extremities Neurological: Cranial nerves II-XII grossly intact Psych/Mental Status: Normal Affect, Appropriate, Alert and oriented to time, place, person, mood and affect Vital Signs Temp Pulse Resp BP Pulse Ox 98.4 F 88 16 139/72 H 98 10/10/18 09:14 10/10/18 09:14 10/10/18 09:14 10/10/18 09:14 10/10/18 09:14 Oxygen Delivery Method Room Air Weight: 76.5 kg Body Mass Index (BMI) 28.9 Finger Stick Blood Glucose 77 Intake and Output for Last 24 Hours 10/08/18 10/09/18 10/10/18 23:59 23:59 23:59 Intake Total 720 / 720 240 / 240 240 / 240 Balance 720 / 720 240 / 240 240 / 240 POC Glucose 10/10/18 10/10/18 10/10/18 08:35 06:30 03:12 POC Glucose 174 H 69 L 110 10/09/18 10/09/18 10/09/18 22:09 16:43 11:40 POC Glucose 148 H 71 150 H Active Medications Hydrocodone Bitart/Acetaminophen ([place] 5mg-325mg) 2 tablet PO Q6H PRN PRN PRN Reason: SEVERE PAIN (-08/09) Last Admin: 10/10/18 09:29 Dose: 2 tablet Aspirin (Ecotrin) 81 mg PO DAILY [facility] Last Admin: 10/10/18 09:30 Dose: 81 mg Atenolol (Tenormin (Beta Mary)) 25 mg PO DAILY [facility] Last Admin: 12/11/18 09:30 Dose: 25 mg Bisacodyl (Dulcolax) 10 mg RECTAL .PRN X 1 PRN PRN Reason: Constipation Dextrose (D50w Syringe) 0 gm IV X1 PRN; Protocol PRN Reason: Hypoglycemia Enoxaparin Sodium (Lovenox) 40 mg SC DAILY@0600 [facility] Last Admin: 10/10/18 05:21 Dose: 40 mg Fentanyl (Duragesic Patch) 25 mcg TRANSDERM. Q3D [facility] Last Admin: 10/06/18 08:46 Dose: 25 mcg Glucagon () 1 mg IM .X1 PRN PRN Reason: Hypoglycemia Glucagon () 1 mg IM .X1 PRN PRN Reason: Hypoglycemia Glyburide (Micronase) 10 mg PO DAILY@0800 [facility] Last Admin: 10/10/18 09:30 Dose: 10 mg Hydrochlorothiazide (Hctz) 25 mg PO DAILY [facility] Last Admin: 10/10/18 09:30 Dose: 25 mg Insulin Glargine (Lantus (Bkc)) 20 units SC QHS [facility] Last Admin: 10/09/18 22:12 Dose: 20 units Insulin Human Lispro (Humalog Kwikpen (Bkc)) 0 unit SC ACHS [facility]; Protocol Last Admin: 10/10/18 06:35 Dose: Not Given Lisinopril (Zestril) 40 mg PO DAILY [facility] Last Admin: 10/10/18 09:30 Dose: 40 mg Magnesium Hydroxide (Milk Of Magnesia) 30 ml PO .PRN X 1 PRN PRN Reason: Constipation Melatonin (Melatonin) 3 mg PO QHS PRN PRN PRN Reason: SLEEP Last Admin: 10/09/18 22:14 Dose: 3 mg Meloxicam (Mobic) 7.5 mg PO BID [facility] Last Admin: 10/10/18 09:30 Dose: 7.5 mg Metformin HCl (Glucophage) 500 mg PO BIDCM [facility] Last Admin: 10/10/18 09:30 Dose: 500 mg Methocarbamol (Robaxin) 500 mg PO BID [facility] Last Admin: 10/10/18 09:30 Dose: 500 mg Potassium Chloride (K-Dur) 20 meq PO BIDCM [facility] Last Admin: 10/10/18 09:30 Dose: 20 meq Pravastatin Sodium (Pravachol) 10 mg PO QHS [facility] Last Admin: 10/09/18 22:10 Dose: 10 mg Senna/Docusate Sodium (Senokot-S, Jyoti-Colace) 2 tablet PO BID [facility] Last Admin: 10/10/18 09:30 Dose: 2 tablet Medical Necessity - Tobacco Use Smoking Status: Never smoker Assessment/Plan All Active Problems (Last Reviewed 09/15/18 @ 08:34 by Harshal Chung MD) Bimalleolar fracture of right ankle (Acute) Other specified noninfective disorders of lymphatic vessels and lymph nodes (Acute) Localized edema (Acute) Preop cardiovascular exam (Acute) Debility s/p right bimalleolar ankle fracture/ORIF of right ankle, complicated by Osteoarthritis in her left hip, HTN, HLD, and DM II. Goal of rehab is worship of functional independence. Plan: - Physical therapy for gait and balance - Occupational Therapy for ADLs - As needed analgesics - Bowel protocol - DVT prophylaxis: SCDs, ASA, Lovenox - Hypertension: Stable with good control, continue HCTZ, and Lisinopril, with dose adjustment as needed - Diabetes type 2 => Controlled ON oral hypoglycemics in addition to long acting insulin, Accu-Cheks a.c. and at bedtime and covered with sliding scale insulin - Right ankle ORIF- Cast dry, clean and intact - HLD - continue home dose of Statin - Weight bearing status - non weight bearing on right lower extremity - Acute pain management - Fentanyl patch 25mcq, [place], and Robaxin for muscle spasms in right calf - Fall precautions - AM Hypoglycemia = give a Snack at bed time
[2018-10-10 12:10] LABS: Bedside Glucose 85 mg/dL (70-110)
--- NOTE | 2018-10-10 13:47 | PN_ITS ---
Patient Problems: Active and Suspected Problems (Last Reviewed 09/15/18 @ 08:34 by Harshal Chung MD) Bimalleolar fracture of right ankle (Acute) Subjective: Chief complaint: Follow-up after consultation for medical management after admission to inpatient rehab unit. Patient seen and examined. No acute events overnight. She states that her right ankle pain is up and down but all over, she is feeling okay. She is doing okay with physical therapy. She has no specific complaints. Her vital signs are stable. - Physical Exam General: Alert, Oriented x3, Cooperative, No apparent distress HEENT: Atraumatic, PERRLA, EOMI, Normocephalic Oral: Moist Mucosa, No Gingival or Mucosal Lesions/ Ulcerations Neck: Supple, No JVD, Negative Carotid Bruits, Trachea Midline, Thyroid Normal Size and Texture Lungs: Clear to auscultation, Normal air movement, No rhonchi, No wheeze, No rales Cardiovascular: Regular rate, Regular Rhythm, Normal S1, Normal S2, No murmurs, PMI Normal Abdomen: Bowel Sounds Present, Soft, Non Tender, Non-Distended, No Hepato- splenomegaly Extremities: No clubbing, No cyanosis, No edema Skin: No rashes, No breakdown Lymphatic: No Cervical, Supraclavicular, or Inguinal Adenopathy Neurological: Cranial nerves II-XII grossly intact, Motor Exam 5/5 strength throughout Psych/Mental Status: Normal Affect, Appropriate, Alert and oriented to time, place, person, mood and affect Vital Signs Temp Pulse Resp BP Pulse Ox 98.4 F 88 16 139/72 H 98 10/10/18 09:14 10/10/18 09:14 10/10/18 09:14 10/10/18 09:14 10/10/18 09:14 Oxygen Delivery Method Room Air Weight: 168 lb 10.458 oz Body Mass Index (BMI) 28.9 Finger Stick Blood Glucose 77 Intake and Output for Last 24 Hours 10/08/18 10/09/18 10/10/18 23:59 23:59 23:59 Intake Total 720 / 720 240 / 240 240 / 240 Balance 720 / 720 240 / 240 240 / 240 POC Glucose 10/10/18 10/10/18 10/10/18 11:52 08:35 06:30 POC Glucose 85 174 H 69 L 1210/09/18 10/09/18 03:12 22:09 16:43 POC Glucose 110 148 H 71 Medical Necessity - Tobacco Use Smoking Status: Never smoker Assessment/Plan All Active Problems (Last Reviewed 09/15/18 @ 08:34 by Harshal Chung MD) Bimalleolar fracture of right ankle (Acute) This is a 68 years old female patient admitted to inpatient rehabilitation unit after she suffered acute traumatic right bimalleolar ankle fracture, underwent open reduction and internal fixation on October 03, 2018 and I am following this patient after consultation for medical management. #1 acute traumatic right bimalleolar ankle fracture: Status post open reduction and internal fixation, postoperative day 7. She is on fentanyl patch as well as Senatobia as needed for pain. Her pain is fairly controlled. Her vital signs are stable. She is doing fine with physical therapy. Plan to continue PT OT according to the rehab team. #2 hypertension: Blood pressure stable, continue atenolol, HCTZ and lisinopril. #3 type 2 diabetes mellitus: Blood sugar has been under control. She is on metformin, Lantus insulin nightly as well as insulin sliding scale. #4 hyperlipidemia: Stable, continue statins. #5 DVT prophylaxis: Subcu Lovenox. This note was generated with [employer] dictation software. It may contain incorrect words, spelling, and punctuation that were not noted in checking the note before signing. Code Visit Inpatient E&M: 52088 Subs Hosp L2
[2018-10-10] MEDS: fentaNYL 25 MCG Patch TRANSDERM. (16:35)
[2018-10-10 16:46] LABS: Bedside Glucose 96 mg/dL (70-110)
[2018-10-10 19:44] VITALS: BP 165/78; PULSE 84; RESP 16; TEMP 36.9; O2SAT 96
[2018-10-10 22:30] VITALS: PULSE 84; RESP 16; O2SAT 96
[2018-10-10] MEDS: MELATONIN 3 MG TABLET PO (22:46)
[2018-10-10] MEDS: Pravastatin 20 MG Tablet 10 MG PO (22:47)
[2018-10-10 22:56] LABS: Bedside Glucose 134 mg/dL (70-110)
[2018-10-11] MEDS: oxyCODONE 5 MG Tablet PO (02:31)
--- NOTE | 2018-10-11 02:34 | NURSING ---
Hospitalist katie @ 02:[address] Salazar returned page. Pt c/o /10 in rt ankle and [place] Q6H/PRN provided at 23:43. N/O for 1x dose for Oxyir 5mg given. Hospitalist recommends pain therapy readdressed in a.m.
--- NOTE | 2018-10-11 02:41 | NURSING ---
0230 pt calling out in pain and requesting for additional pain medication. pt has been restless most of the night d/t pain and unable to get comfortable. rn called and received an one time order for oxyir 5mg and then was given to pt. accu-check completed at this time and was 71. snack given and will continue to monitor pt
[2018-10-11 02:45] LABS: Bedside Glucose 71 mg/dL (70-110)
--- NOTE | 2018-10-11 04:58 | NURSING ---
Reviewed and agree with GAS LINE REPAIRER documentation and FIMs charting.
[2018-10-11] MEDS: Enoxaparin 40 MG/0.4 ML Syringe SC (06:05)
[2018-10-11 07:25] LABS: Bedside Glucose 110 mg/dL (70-110)
[2018-10-11] MEDS: Senna/Docusate Sodium 1 Tablet 2 TABLET PO ×2 (08:25→22:13)
[2018-10-11] MEDS: Methocarbamol 500 MG Tablet PO ×2 (08:25→22:13)
[2018-10-11] MEDS: Atenolol 25 MG Tablet PO (08:25)
[2018-10-11] MEDS: Lisinopril 40 MG Tablet PO (08:25)
[2018-10-11] MEDS: Aspirin E.C. 81 MG Tablet PO (08:25)
[2018-10-11] MEDS: hydroCHLOROthiazide 25 MG Tablet PO (08:25)
[2018-10-11] MEDS: Meloxicam 7.5 MG Tablet PO ×2 (08:26→22:13)
[2018-10-11] MEDS: HYDROcodone Bitartrate/Apap 5/325 Tablet PO ×3 (08:29→22:13)
[2018-10-11 08:45] VITALS: BP 135/68; PULSE 86; RESP 16; TEMP 36.6; O2SAT 97
--- NOTE | 2018-10-11 09:39 | NURSING ---
dr echavarria office called and bhavani left regarding pt c/o high pain to right ankle. asked if they would like an xray to be done.
--- NOTE | 2018-10-11 10:35 | NURSING ---
dr echavarria nurse real returned call back. order for xray, ice 20 minutes per hour, elevate when not in therapy, and may loosen top layer of dressing if needed.
--- NOTE | 2018-10-11 10:45 | RAD_ITS ---
STUDY: X-RAY - RIGHT ANKLE REASON FOR EXAM: Female, 68 years old. Pain. Recent surgery. TECHNIQUE: 3 view(s) of the ankle. COMPARISON: 3 postoperative views of the right ankle October 03, 2018. FINDINGS: Prior placement of 2 metal screws through the medial malleolus into the distal tibial metaphysis again noted. Prior ORIF of the distal fibula with a lateral metal sideplate and screws as well as an additional separate screw passing in a caudocranial posterior to anterior fashion across the distal metadiaphysis also again noted. Normal medial and lateral malleoli. Normal tibiotalar articulation and ankle mortise. Normal visualized talus and calcaneus. The visualized subtalar, talonavicular, calcaneocuboid and tarsal articulations are normal. There is no demonstrated fracture line. Mild soft tissue swelling of the distal lower leg is improved. RAD/Ankle min 3 Views IMPRESSION: Metal hardware of prior bimalleolar ORIF again noted. Mild improved distal lower leg soft tissue swelling. No acute osseous and amounted. Electronically Signed: Jonh Arenas MD at 19:50 EST , Service support ,
--- NOTE | 2018-10-11 10:50 | NURSING ---
off floor to xray
--- NOTE | 2018-10-11 10:50 | RAD_ITS ---
STUDY: X-RAY - RIGHT HIP REASON FOR EXAM: Female, 68 years old. Hip pain. TECHNIQUE: 2 views of the hip. COMPARISON: Comparison is made with prior examination of the left hip dated January 03, 2018. FINDINGS: Normal femoral head, neck, intertrochanteric region and visualized proximal femur. Normal acetabulum. Normal hip joint. Normal visualized superior and inferior pubic rami and ischial tuberosities. RAD/HIP, UNI W/ Pelvis 2-3 Views IMPRESSION: Normal x-ray examination of the hip. Electronically Signed: Isreal Hargrove MD at 12:26 EST Tel [phone], Service support ,
[2018-10-11 12:05] LABS: Bedside Glucose 97 mg/dL (70-110)
--- NOTE | 2018-10-11 15:30 | PCM.PN.NEU ---
Patient Problems: Active and Suspected Problems (Last Reviewed 09/15/18 @ 08:34 by Harshal Chung MD) Bimalleolar fracture of right ankle (Acute) Subjective: Patient complaining of increased pain in her right ankle and stabbing pain during the evening interfering with sleep. Also noted by the therapy staff difficulty with movement of her right hip area, and pain. Notified Dr. Zeng concerning the right ankle and obtained an x-ray of both the ankle and the hip. She was able to participate in therapy. - Physical Exam General: Alert, Oriented x3, Cooperative HEENT: Atraumatic, PERRLA, EOMI, Normocephalic Neck: Supple, No JVD, Negative Carotid Bruits Lungs: Clear to auscultation, Normal air movement Cardiovascular: Regular rate, No murmurs Abdomen: Bowel Sounds Present, Soft, Non Tender Extremities: No edema, Capillary Refill Less than 3 Seconds Skin: No rashes, No breakdown Musculoskeletal: No Tenderness to Palpation of Joints or Extremities Neurological: Cranial nerves II-XII grossly intact Psych/Mental Status: Normal Affect, Appropriate, Alert and oriented to time, place, person, mood and affect Vital Signs Temp Pulse Resp BP Pulse Ox 97.9 F 86 16 135/68 H 97 10/11/18 08:45 10/11/18 08:45 10/11/18 08:45 10/11/18 08:45 10/11/18 08:45 Oxygen Delivery Method Room Air Weight: 74.8 kg Body Mass Index (BMI) 28.9 Finger Stick Blood Glucose 77 Intake and Output for Last 24 Hours 10/09/18 10/10/18 10/11/18 23:59 23:59 23:59 Intake Total 240 / 240 480 / 480 480 / 480 Balance 240 / 240 480 / 480 480 / 480 POC Glucose 10/11/18 10/11/18 10/11/18 12:00 06:39 02:37 POC Glucose 97 110 71 10/10/18 10/10/18 22:35 16:26 POC Glucose 134 H 96 Active Medications Hydrocodone Bitart/Acetaminophen ([place] 5mg-325mg) 2 tablet PO Q6H PRN PRN PRN Reason: SEVERE PAIN (6-10/10) Last Admin: 10/11/18 08:29 Dose: 2 tablet Aspirin (Ecotrin) 81 mg PO DAILYCM [facility]JAM[place] Last Admin: 10/11/18 08:25 Dose: 81 mg Atenolol (Tenormin (Beta Mary)) 25 mg PO DAILY [facility] Last Admin: 10/11/18 08:25 Dose: 25 mg Bisacodyl (Dulcolax) 10 mg RECTAL .PRN X 1 PRN PRN Reason: Constipation Dextrose (D50w Syringe) 0 gm IV X1 PRN; Protocol PRN Reason: Hypoglycemia Enoxaparin Sodium (Lovenox) 40 mg SC DAILY@0600 [facility] Last Admin: 10/11/18 06:05 Dose: 40 mg Fentanyl (Duragesic Patch) 25 mcg TRANSDERM. Q3D [facility] Last Admin: 10/10/18 16:35 Dose: 25 mcg Glucagon () 1 mg IM .X1 PRN PRN Reason: Hypoglycemia Glucagon () 1 mg IM .X1 PRN PRN Reason: Hypoglycemia Glyburide (Micronase) 10 mg PO DAILY@0800 [facility] Last Admin: 10/11/18 08:25 Dose: 10 mg Hydrochlorothiazide (Hctz) 25 mg PO DAILY [facility] Last Admin: 10/11/18 08:25 Dose: 25 mg Insulin Glargine ([facility] (Bkc)) [facility] Last Admin: 10/10/18 22:48 Dose: 20 units Insulin Human Lispro (Humalog Kwikpen (Bkc)) 0 unit SC [facility]; Protocol Last Admin: 10/11/18 12:18 Dose: Not Given Lisinopril (Zestril) 40 mg PO DAILY [facility] Last Admin: 10/11/18 08:25 Dose: 40 mg Magnesium Hydroxide (Milk Of Magnesia) 30 ml PO .PRN X 1 PRN PRN Reason: Constipation Melatonin (Melatonin) 3 mg PO QHS PRN PRN PRN Reason: SLEEP Last Admin: 10/10/18 22:46 Dose: 3 mg Meloxicam (Mobic) 7.5 mg PO BID [facility] Last Admin: 10/11/18 08:26 Dose: 7.5 mg Metformin [facility] (Gluc[facility]) [facility] Last Admin: 10/11/18 08:25 Dose: 500 mg Methocarbamol (Robaxin) 500 mg PO BID [facility] Last Admin: 10/11/18 08:25 Dose: 500 mg Potassium Chloride (K-Dur) [facility] meq [facility] Last Admin: 12/12/18 08:25 Dose: 20 meq Pravastatin Sodium (Pravachol) 10 mg PO QHS [facility] Last Admin: 10/10/18 22:47 Dose: 10 mg Senna/Docusate Sodium (Senokot-S, Jyoti-Colace) 2 tablet PO BID [facility] Last Admin: 10/11/18 08:25 Dose: 2 tablet Medical Necessity - Tobacco Use Smoking Status: Never smoker Assessment/Plan All Active Problems (Last Reviewed 09/15/18 @ 08:34 by Harshal Chung MD) Bimalleolar fracture of right ankle (Acute) Debility s/p right bimalleolar ankle fracture/ORIF of right ankle, complicated by Osteoarthritis in her left hip, HTN, HLD, and DM II. Goal of rehab is congregational of functional independence. Plan: - Physical therapy for gait and balance - Occupational Therapy for ADLs - As needed analgesics - Bowel protocol - DVT prophylaxis: SCDs, ASA, Lovenox - Hypertension: Stable with good control, continue HCTZ, and Lisinopril, with dose adjustment as needed - Diabetes type 2 => Controlled ON oral hypoglycemics in addition to long acting insulin, Accu-Cheks a.c. and at bedtime and covered with sliding scale insulin - Right ankle ORIF- Cast dry, clean and intact - HLD - continue home dose of Statin - Weight bearing status - non weight bearing on right lower extremity - Acute pain management - Fentanyl patch 25mcq, [place], and Robaxin for muscle spasms in right calf - Fall precautions - AM Hypoglycemia = give a Snack at bed time - Increased pain in R ankle => Notified surgeon, Dr. Zeng - pending results of x-ray of ankle - Right hip pain - xray of hip/pelvic show a normal hip
--- NOTE | 2018-10-11 15:35 | PN.NEURO_ITS ---
Patient Problems: Active and Suspected Problems (Last Reviewed 09/15/18 @ 08:34 by Harshal Chung MD) Bimalleolar fracture of right ankle (Acute) Subjective: Patient complaining of increased pain in her right ankle and stabbing pain during the evening interfering with sleep. Also noted by the therapy staff difficulty with movement of her right hip area, and pain. Notified Dr. Zeng concerning the right ankle and obtained an x-ray of both the ankle and the hip. She was able to participate in therapy. - Physical Exam General: Alert, Oriented x3, Cooperative HEENT: Atraumatic, PERRLA, EOMI, Normocephalic Neck: Supple, No JVD, Negative Carotid Bruits Lungs: Clear to auscultation, Normal air movement Cardiovascular: Regular rate, No murmurs Abdomen: Bowel Sounds Present, Soft, Non Tender Extremities: No edema, Capillary Refill Less than 3 Seconds Skin: No rashes, No breakdown Musculoskeletal: No Tenderness to Palpation of Joints or Extremities Neurological: Cranial nerves II-XII grossly intact Psych/Mental Status: Normal Affect, Appropriate, Alert and oriented to time, place, person, mood and affect Vital Signs Temp Pulse Resp BP Pulse Ox 97.9 F 86 16 135/68 H 97 10/11/18 08:45 10/11/18 08:45 10/11/18 08:45 10/11/18 08:45 10/11/18 08:45 Oxygen Delivery Method Room Air Weight: 74.8 kg Body Mass Index (BMI) 28.9 Finger Stick Blood Glucose 77 Intake and Output for Last 24 Hours 10/09/18 10/10/18 10/11/18 23:59 23:59 23:59 Intake Total 240 / 240 480 / 480 480 / 480 Balance 240 / 240 480 / 480 480 / 480 POC Glucose 10/11/18 10/11/18 10/11/18 12:00 06:39 02:37 POC Glucose 97 110 71 10/10/18 10/10/18 22:35 16:26 POC Glucose 134 H 96 Active Medications Hydrocodone Bitart/Acetaminophen ([place] 5mg-325mg) 2 tablet PO Q6H PRN PRN PRN Reason: SEVERE PAIN (6-10/10) Last Admin: 10/11/18 08:29 Dose: 2 tablet Aspirin (Ecotrin) 81 mg PO DAILYCM [facility] Last Admin: 10/11/18 08:25 Dose: 81 mg Atenolol (Tenormin (Beta Mary)) 25 mg PO DAILY [facility] Last Admin: 10/11/18 08:25 Dose: 25 mg Bisacodyl (Dulcolax) 10 mg RECTAL .PRN X 1 PRN PRN Reason: Constipation Dextrose (D50w Syringe) 0 gm IV X1 PRN; Protocol PRN Reason: Hypoglycemia Enoxaparin Sodium (Lovenox) 40 mg SC DAILY@0600 [facility] Last Admin: 10/11/18 06:05 Dose: 40 mg Fentanyl (Duragesic Patch) 25 mcg TRANSDERM. Q3D [facility] Last Admin: 10/10/18 16:35 Dose: 25 mcg Glucagon () 1 mg IM .X1 PRN PRN Reason: Hypoglycemia Glucagon () 1 mg IM .X1 PRN PRN Reason: Hypoglycemia Glyburide (Micronase) 10 mg PO DAILY@0800 [facility] Last Admin: 10/11/18 08:25 Dose: 10 mg Hydrochlorothiazide (Hctz) 25 mg PO DAILY [facility] Last Admin: 10/11/18 08:25 Dose: 25 mg Insulin Glargine (Lantus (Bkc)) [facility] Last Admin: 10/10/18 22:48 Dose: 20 units Insulin Human Lispro (Humalog Kwikpen (Bkc)) 0 unit SC [facility]; Protocol Last Admin: 10/11/18 12:18 Dose: Not Given Lisinopril (Zestril) 40 mg PO DAILY [facility] Last Admin: 10/11/18 08:25 Dose: 40 mg Magnesium Hydroxide (Milk Of Magnesia) 30 ml PO .PRN X 1 PRN PRN Reason: Constipation Melatonin (Melatonin) 3 mg PO QHS PRN PRN PRN Reason: SLEEP Last Admin: 10/10/18 22:46 Dose: 3 mg Meloxicam (Mobic) 7.5 mg PO BID [facility] Last Admin: 10/11/18 08:26 Dose: 7.5 mg Metformin HCl (Glucophage) [facility] Last Admin: 10/11/18 08:25 Dose: 500 mg Methocarbamol (Robaxin) 500 mg PO BID [facility] Last Admin: 10/11/18 08:25 Dose: 500 mg Potassium Chloride (K-Dur) [facility] meq [facility] Last Admin: 12/12/18 08:25 Dose: 20 meq Pravastatin Sodium (Pravachol) 10 mg PO QHS [facility] Last Admin: 10/10/18 22:47 Dose: 10 mg Senna/Docusate Sodium (Senokot-S, Jyoti-Colace) 2 tablet PO BID [facility] Last Admin: 10/11/18 08:25 Dose: 2 tablet Medical Necessity - Tobacco Use Smoking Status: Never smoker Assessment/Plan All Active Problems (Last Reviewed 09/15/18 @ 08:34 by Harshal Chung MD) Bimalleolar fracture of right ankle (Acute) Debility s/p right bimalleolar ankle fracture/ORIF of right ankle, complicated by Osteoarthritis in her left hip, HTN, HLD, and DM II. Goal of rehab is hindu of functional independence. Plan: - Physical therapy for gait and balance - Occupational Therapy for ADLs - As needed analgesics - Bowel protocol - DVT prophylaxis: SCDs, ASA, Lovenox - Hypertension: Stable with good control, continue HCTZ, and Lisinopril, with dose adjustment as needed - Diabetes type 2 => Controlled ON oral hypoglycemics in addition to long acting insulin, Accu-Cheks a.c. and at bedtime and covered with sliding scale insulin - Right ankle ORIF- Cast dry, clean and intact - HLD - continue home dose of Statin - Weight bearing status - non weight bearing on right lower extremity - Acute pain management - Fentanyl patch 25mcq, [place], and Robaxin for muscle spasms in right calf - Fall precautions - AM Hypoglycemia = give a Snack at bed time - Increased pain in R ankle => Notified surgeon, Dr. Zeng - pending results of x-ray of ankle - Right hip pain - xray of hip/pelvic show a normal hip
[2018-10-11 17:15] LABS: Bedside Glucose 94 mg/dL (70-110)
[2018-10-11 22:00] VITALS: BP 136/74; PULSE 84; RESP 16; TEMP 36.7; O2SAT 98
[2018-10-11 22:10] LABS: Bedside Glucose 194 mg/dL (70-110)
[2018-10-11] MEDS: Insulin Lispro 100 UNIT/ML INSULN.PEN SC (22:11)
[2018-10-11] MEDS: Pravastatin 20 MG Tablet 10 MG PO (22:13)
[2018-10-11] MEDS: MELATONIN 10 MG TABLET 5 MG PO (22:14)
[2018-10-12 03:11] LABS: Bedside Glucose 96 mg/dL (70-110)
--- NOTE | 2018-10-12 04:03 | NURSING ---
REVIEWED AND AGREE WITH [facility] FIM AND HANDOFF CHARTING.
[2018-10-12] MEDS: HYDROcodone Bitartrate/Apap 5/325 Tablet PO ×3 (05:17→18:29)
[2018-10-12] MEDS: Enoxaparin 40 MG/0.4 ML Syringe SC (05:18)
[2018-10-12 07:00] LABS: Bedside Glucose 96 mg/dL (70-110)
[2018-10-12 08:10] VITALS: BP 156/82; PULSE 83; RESP 18; TEMP 36.7; O2SAT 98
[2018-10-12] MEDS: Lisinopril 40 MG Tablet PO (08:10)
[2018-10-12] MEDS: Senna/Docusate Sodium 1 Tablet 2 TABLET PO ×2 (08:11→22:04)
[2018-10-12] MEDS: Methocarbamol 500 MG Tablet PO ×2 (08:11→22:04)
[2018-10-12] MEDS: hydroCHLOROthiazide 25 MG Tablet PO (08:11)
[2018-10-12] MEDS: Aspirin E.C. 81 MG Tablet PO (08:11)
[2018-10-12] MEDS: Meloxicam 7.5 MG Tablet PO ×2 (08:11→22:03)
[2018-10-12] MEDS: Atenolol 25 MG Tablet PO (08:11)
--- NOTE | 2018-10-12 09:32 | PCM.PN.NEU ---
Patient Problems: Active and Suspected Problems (Last Reviewed 09/15/18 @ 08:34 by Harshal Chung MD) Bimalleolar fracture of right ankle (Acute) Subjective: Patient see, no new complaints. Tolerating therapy. Pain was slightly better today, x-rays of the ankle shows the hardware is aligned, the swelling in the soft tissue of the distal ankle tissue has improved, and no acute osseous is noted. No issues with GI/. - Physical Exam General: Alert, Oriented x3, Cooperative HEENT: Atraumatic, PERRLA, EOMI, Normocephalic Neck: Supple, No JVD, Negative Carotid Bruits Lungs: Clear to auscultation, Normal air movement Cardiovascular: Regular rate, No murmurs Abdomen: Bowel Sounds Present, Soft, Non Tender Extremities: No edema, Capillary Refill Less than 3 Seconds Skin: No rashes, No breakdown Musculoskeletal: No Tenderness to Palpation of Joints or Extremities Neurological: Cranial nerves II-XII grossly intact Psych/Mental Status: Normal Affect, Appropriate, Alert and oriented to time, place, person, mood and affect Vital Signs Temp Pulse Resp BP Pulse Ox 98.0 F 83 18 156/82 H 98 10/12/18 08:10 10/12/18 08:10 10/12/18 08:10 10/12/18 08:10 10/12/18 08:10 Oxygen Delivery Method Room Air Weight: 74.8 kg Body Mass Index (BMI) 28.9 Finger Stick Blood Glucose 77 Intake and Output for Last 24 Hours 10/10/18 10/11/18 10/12/18 23:59 23:59 23:59 Intake Total 480 / 480 480 / 480 Balance 480 / 480 480 / 480 POC Glucose 10/12/18 10/12/18 10/11/18 06:49 03:07 22:07 POC Glucose 96 96 194 H 10/11/18 10/11/18 17:04 12:00 POC Glucose 94 97 Active Medications Hydrocodone Bitart/Acetaminophen ([place] 5mg-325mg) 2 tablet PO Q6H PRN PRN PRN Reason: SEVERE PAIN (6-10/10) Last Admin: 10/12/18 05:17 Dose: 2 tablet Aspirin (Ecotrin) 81 mg PO DAILYCM [facility] Last Admin: 10/12/18 08:11 Dose: 81 mg Atenolol (Tenormin (Beta Mary)) 25 mg PO DAILY [facility] Last Admin: 10/12/18 08:11 Dose: 25 mg Bisacodyl (Dulcolax) 10 mg RECTAL .PRN X 1 PRN PRN Reason: Constipation Dextrose (D50w Syringe) 0 gm IV X1 PRN; Protocol PRN Reason: Hypoglycemia Enoxaparin Sodium (Lovenox) 40 mg SC DAILY@0600 [facility] Last Admin: 10/12/18 05:18 Dose: 40 mg Fentanyl (Duragesic Patch) 25 mcg TRANSDERM. Q3D [facility] Last Admin: 10/10/18 16:35 Dose: 25 mcg Glucagon () 1 mg IM .X1 PRN PRN Reason: Hypoglycemia Glucagon () 1 mg IM .X1 PRN PRN Reason: Hypoglycemia Glyburide (Micronase) 10 mg PO DAILY@0800 [facility] Last Admin: 10/12/18 08:11 Dose: 10 mg Hydrochlorothiazide (Hctz) 25 mg PO DAILY [facility] Last Admin: 10/12/18 08:11 Dose: 25 mg Insulin Glargine (Lantus (Bkc)) 20 units SC QHS [facility] Last Admin: 10/11/18 22:12 Dose: 20 units Insulin Human Lispro (Humalog Kwikpen (Bkc)) 0 unit SC [facility]; Protocol Last Admin: 10/12/18 08:07 Dose: Not Given Lisinopril (Zestril) 40 mg PO DAILY [facility] Last Admin: 10/12/18 08:10 Dose: 40 mg Lorazepam (Ativan) 0.5 mg PO QHS PRN PRN PRN Reason: INSOMNIA Magnesium Hydroxide (Milk Of Magnesia) 30 ml PO .PRN X 1 PRN PRN Reason: Constipation Melatonin (Melatonin) 5 mg PO QHS PRN PRN PRN Reason: SLEEP Last Admin: 10/11/18 22:14 Dose: 5 mg Meloxicam (Mobic) 7.5 mg PO BID [facility] Last Admin: 10/12/18 08:11 Dose: 7.5 mg Metformin [facility] (Glucophage) [facility] Last Admin: 10/12/18 08:11 Dose: 500 mg Methocarbamol (Robaxin) 500 mg PO BID [facility] Last Admin: 10/12/18 08:11 Dose: 500 mg Potassium Chloride (K-Dur) 20 meq [facility] Last Admin: 10/12/18 08:10 Dose: 20 meq Pravastatin Sodium (Pravachol) 10 mg PO QHS [facility] Last Admin: 10/11/18 22:13 Dose: 10 mg Senna/Docusate Sodium (Senokot-S, Jyoti-Colace) 2 tablet PO BID [facility] Last Admin: 10/12/18 08:11 Dose: 2 tablet Medical Necessity - Tobacco Use Smoking Status: Never smoker Assessment/Plan All Active Problems (Last Reviewed 09/15/18 @ 08:34 by Harshal Chung MD) Bimalleolar fracture of right ankle (Acute) Debility s/p right bimalleolar ankle fracture/ORIF of right ankle, complicated by Osteoarthritis in her left hip, HTN, HLD, and DM II. Goal of rehab is protestant of functional independence. Plan: - Physical therapy for gait and balance - Occupational Therapy for ADLs - As needed analgesics - Bowel protocol - DVT prophylaxis: SCDs, ASA, Lovenox - Hypertension: Stable with good control, continue HCTZ, and Lisinopril, with dose adjustment as needed - Diabetes type 2 => Controlled ON oral hypoglycemics in addition to long acting insulin, Accu-Cheks a.c. and at bedtime and covered with sliding scale insulin - Right ankle ORIF- Cast dry, clean and intact - HLD - continue home dose of Statin - Weight bearing status - non weight bearing on right lower extremity - Acute pain management - Fentanyl patch 25mcq, [place], and Robaxin for muscle spasms in right calf - Fall precautions - AM Hypoglycemia = give a Snack at bed time - Increased pain in R ankle => Notified surgeon, Dr. Zeng - pending results of x-ray of ankle=> showed hardware is aligned, some mild soft tissue swelling in the distal ankle is improved. - Right hip pain - xray of hip/pelvic show a normal hip no acute process
--- NOTE | 2018-10-12 09:37 | PN.NEURO_ITS ---
Patient Problems: Active and Suspected Problems (Last Reviewed 09/15/18 @ 08:34 by Harshal Chung MD) Bimalleolar fracture of right ankle (Acute) Subjective: Patient see, no new complaints. Tolerating therapy. Pain was slightly better today, x-rays of the ankle shows the hardware is aligned, the swelling in the soft tissue of the distal ankle tissue has improved, and no acute osseous is noted. No issues with GI/. - Physical Exam General: Alert, Oriented x3, Cooperative HEENT: Atraumatic, PERRLA, EOMI, Normocephalic Neck: Supple, No JVD, Negative Carotid Bruits Lungs: Clear to auscultation, Normal air movement Cardiovascular: Regular rate, No murmurs Abdomen: Bowel Sounds Present, Soft, Non Tender Extremities: No edema, Capillary Refill Less than 3 Seconds Skin: No rashes, No breakdown Musculoskeletal: No Tenderness to Palpation of Joints or Extremities Neurological: Cranial nerves II-XII grossly intact Psych/Mental Status: Normal Affect, Appropriate, Alert and oriented to time, place, person, mood and affect Vital Signs Temp Pulse Resp BP Pulse Ox 98.0 F 83 18 156/82 H 98 10/12/18 08:10 10/12/18 08:10 10/12/18 08:10 10/12/18 08:10 10/12/18 08:10 Oxygen Delivery Method Room Air Weight: 74.8 kg Body Mass Index (BMI) 28.9 Finger Stick Blood Glucose 77 Intake and Output for Last 24 Hours 10/10/18 10/11/18 10/12/18 23:59 23:59 23:59 Intake Total 480 / 480 480 / 480 Balance 480 / 480 480 / 480 POC Glucose 10/12/18 10/12/18 10/11/18 06:49 03:07 22:07 POC Glucose 96 96 194 H 10/11/18 10/11/18 17:04 12:00 POC Glucose 94 97 Active Medications Hydrocodone Bitart/Acetaminophen ([place] 5mg-325mg) 2 tablet PO Q6H PRN PRN PRN Reason: SEVERE PAIN (6-10/10) Last Admin: 10/12/18 05:17 Dose: 2 tablet Aspirin (Ecotrin) 81 mg PO DAILYCM [facility]JAMIN Last Admin: 10/12/18 08:11 Dose: 81 mg Atenolol (Tenormin (Beta Mary)) 25 mg PO DAILY [facility] Last Admin: 10/12/18 08:11 Dose: 25 mg Bisacodyl (Dulcolax) 10 mg RECTAL .PRN X 1 PRN PRN Reason: Constipation Dextrose (D50w Syringe) 0 gm IV X1 PRN; Protocol PRN Reason: Hypoglycemia Enoxaparin Sodium (Lovenox) 40 mg SC DAILY@0600 [facility] Last Admin: 10/12/18 05:18 Dose: 40 mg Fentanyl (Duragesic Patch) 25 mcg TRANSDERM. Q3D [facility] Last Admin: 10/10/18 16:35 Dose: 25 mcg Glucagon () 1 mg IM .X1 PRN PRN Reason: Hypoglycemia Glucagon () 1 mg IM .X1 PRN PRN Reason: Hypoglycemia Glyburide (Micronase) 10 mg PO DAILY@0800 [facility] Last Admin: 10/12/18 08:11 Dose: 10 mg Hydrochlorothiazide (Hctz) 25 mg PO DAILY [facility] Last Admin: 10/12/18 08:11 Dose: 25 mg Insulin Glargine (Lantus (Bkc)) 20 units SC QHS [facility] Last Admin: 10/11/18 22:12 Dose: 20 units Insulin Human Lispro (Humalog Kwikpen (Bkc)) 0 unit SC [facility]; Protocol Last Admin: 10/12/18 08:07 Dose: Not Given Lisinopril (Zestril) 40 mg PO DAILY [facility] Last Admin: 10/12/18 08:10 Dose: 40 mg Lorazepam (Ativan) 0.5 mg PO QHS PRN PRN PRN Reason: INSOMNIA Magnesium Hydroxide (Milk Of Magnesia) 30 ml PO .PRN X 1 PRN PRN Reason: Constipation Melatonin (Melatonin) 5 mg PO QHS PRN PRN PRN Reason: SLEEP Last Admin: 10/11/18 22:14 Dose: 5 mg Meloxicam (Mobic) 7.5 mg PO BID [facility] Last Admin: 10/12/18 08:11 Dose: 7.5 mg [facility] Last Admin: 10/12/18 08:11 Dose: 500 mg Methocarbamol (Robaxin) 500 mg PO BID [facility] Last Admin: 10/12/18 08:11 Dose: 500 mg Potassium Chloride (K-Dur) [facility] Last Admin: 10/12/18 08:10 Dose: 20 meq Pravastatin Sodium (Pravachol) 10 mg PO QHS [facility] Last Admin: 10/11/18 22:13 Dose: 10 mg Senna/Docusate Sodium (Senokot-S, Jyoti-Colace) 2 tablet PO BID [facility] Last Admin: 10/12/18 08:11 Dose: 2 tablet Medical Necessity - Tobacco Use Smoking Status: Never smoker Assessment/Plan All Active Problems (Last Reviewed 09/15/18 @ 08:34 by Harshal Chung MD) Bimalleolar fracture of right ankle (Acute) Debility s/p right bimalleolar ankle fracture/ORIF of right ankle, complicated by Osteoarthritis in her left hip, HTN, HLD, and DM II. Goal of rehab is restor ation of functional independence. Plan: - Physical therapy for gait and balance - Occupational Therapy for ADLs - As needed analgesics - Bowel protocol - DVT prophylaxis: SCDs, ASA, Lovenox - Hypertension: Stable with good control, continue HCTZ, and Lisinopril, with dose adjustment as needed - Diabetes type 2 => Controlled ON oral hypoglycemics in addition to long acting insulin, Accu-Cheks a.c. and at bedtime and covered with sliding scale insulin - Right ankle ORIF- Cast dry, clean and intact - HLD - continue home dose of Statin - Weight bearing status - non weight bearing on right lower extremity - Acute pain management - Fentanyl patch 25mcq, [place], and Robaxin for muscle spasms in right calf - Fall precautions - AM Hypoglycemia = give a Snack at bed time - Increased pain in R ankle => Notified surgeon, Dr. Zeng - pending results of x-ray of ankle=> showed hardware is aligned, some mild soft tissue swelling in the distal ankle is improved. - Right hip pain - xray of hip/pelvic show a normal hip no acute process
[2018-10-12 12:05] LABS: Bedside Glucose 59 mg/dL (70-110)
[2018-10-12 14:40] LABS: Bedside Glucose 152 mg/dL (70-110)
[2018-10-12 16:55] LABS: Bedside Glucose 91 mg/dL (70-110)
[2018-10-12 21:16] LABS: Bedside Glucose 108 mg/dL (70-110)
[2018-10-12 22:00] VITALS: BP 148/79; PULSE 78; RESP 18; TEMP 36.7; O2SAT 97
[2018-10-12] MEDS: Pravastatin 20 MG Tablet 10 MG PO (22:03)
[2018-10-12] MEDS: MELATONIN 10 MG TABLET 5 MG PO (22:04)
[2018-10-12 22:10] LABS: Bedside Glucose 89 mg/dL (70-110)
--- NOTE | 2018-10-13 00:26 | NURSING ---
Reviewed and agree with LPNs fims and handoff
[2018-10-13 03:16] LABS: Bedside Glucose 93 mg/dL (70-110)
[2018-10-13] MEDS: HYDROcodone Bitartrate/Apap 5/325 Tablet PO ×2 (03:16→17:28)
[2018-10-13] MEDS: Enoxaparin 40 MG/0.4 ML Syringe SC (06:20)
[2018-10-13 07:00] VITALS: BP 151/82; PULSE 89; RESP 16; TEMP 36.9; O2SAT 96
[2018-10-13 07:06] LABS: Bedside Glucose 100 mg/dL (70-110)
[2018-10-13] MEDS: Meloxicam 7.5 MG Tablet PO ×2 (08:21→21:19)
[2018-10-13] MEDS: Aspirin E.C. 81 MG Tablet PO (08:21)
[2018-10-13] MEDS: Methocarbamol 500 MG Tablet PO ×2 (08:21→21:18)
[2018-10-13] MEDS: Atenolol 25 MG Tablet PO (08:22)
[2018-10-13] MEDS: Lisinopril 40 MG Tablet PO (08:22)
[2018-10-13] MEDS: hydroCHLOROthiazide 25 MG Tablet PO (08:22)
[2018-10-13] MEDS: Senna/Docusate Sodium 1 Tablet 2 TABLET PO ×2 (08:22→21:18)
[2018-10-13 11:40] LABS: Bedside Glucose 147 mg/dL (70-110)
--- NOTE | 2018-10-13 16:29 | PCM.PN.NEU ---
Patient Problems: Active and Suspected Problems (Last Reviewed 09/15/18 @ 08:34 by Harshal Chung MD) Bimalleolar fracture of right ankle (Acute) Subjective: Patient seen and examined. Pain has improved. Tolerating therapy. No issues with GI/. - Physical Exam General: Alert, Oriented x3, Cooperative HEENT: Atraumatic, PERRLA, EOMI, Normocephalic Neck: Supple, No JVD, Negative Carotid Bruits Lungs: Clear to auscultation, Normal air movement Cardiovascular: Regular rate, No murmurs Abdomen: Bowel Sounds Present, Soft, Non Tender Extremities: No edema, Capillary Refill Less than 3 Seconds Skin: No rashes, No breakdown Musculoskeletal: No Tenderness to Palpation of Joints or Extremities Neurological: Cranial nerves II-XII grossly intact Psych/Mental Status: Normal Affect, Appropriate, Alert and oriented to time, place, person, mood and affect Vital Signs Temp Pulse Resp BP Pulse Ox 98.4 F 89 16 151/82 H 96 10/13/18 07:00 10/13/18 07:00 10/13/18 07:00 10/13/18 07:00 10/13/18 07:00 Oxygen Delivery Method Room Air Weight: 74.8 kg Body Mass Index (BMI) 28.9 Finger Stick Blood Glucose 77 Intake and Output for Last 24 Hours 10/11/18 10/12/18 10/13/18 23:59 23:59 23:59 Intake Total 480 / 480 840 / 840 Balance 480 / 480 840 / 840 POC Glucose 10/13/18 10/13/18 10/13/18 11:28 06:50 03:06 POC Glucose 147 H 100 93 10/12/18 10/12/18 10/12/18 22:02 21:13 16:34 POC Glucose 89 108 91 Active Medications Hydrocodone Bitart/Acetaminophen ([place] 5mg-325mg) 2 tablet PO Q6H PRN PRN PRN Reason: SEVERE PAIN (6-10/10) Last Admin: 10/13/18 03:16 Dose: 2 [facility] Last Admin: 10/13/18 08:21 Dose: 81 mg Atenolol (Tenormin (Beta Mary)) 25 mg PO DAILY [facility] Last Admin: 12/14/18 08:22 Dose: 25 mg Bisacodyl (Dulcolax) 10 mg RECTAL .PRN X 1 PRN PRN Reason: Constipation Dextrose (D50w Syringe) 0 gm IV X1 PRN; Protocol PRN Reason: Hypoglycemia Enoxaparin Sodium (Lovenox) 40 mg SC DAILY@0600 [facility] Last Admin: 10/13/18 06:20 Dose: 40 mg Fentanyl (Duragesic Patch) 25 mcg TRANSDERM. Q3D [facility] Last Admin: 10/10/18 16:35 Dose: 25 mcg Glucagon () 1 mg IM .X1 PRN PRN Reason: Hypoglycemia Glucagon () 1 mg IM .X1 PRN PRN Reason: Hypoglycemia Glyburide (Micronase) 10 mg PO DAILY@0800 [facility] Last Admin: 10/13/18 08:21 Dose: 10 mg Hydrochlorothiazide (Hctz) 25 mg PO DAILY [facility] Last Admin: 10/13/18 08:22 Dose: 25 mg Insulin Glargine (Lantus (Bkc)) 20 units SC QHS [facility] Last Admin: 10/12/18 22:20 Dose: Not Given Insulin Human Lispro (Humalog Kwikpen (Bkc)) 0 unit SC [facility]; Protocol Last Admin: 10/13/18 11:31 Dose: Not Given Lisinopril (Zestril) 40 mg PO DAILY [facility] Last Admin: 10/13/18 08:22 Dose: 40 mg Lorazepam (Ativan) 0.5 mg PO QHS PRN PRN PRN Reason: INSOMNIA Magnesium Hydroxide (Milk Of Magnesia) 30 ml PO .PRN X 1 PRN PRN Reason: Constipation Melatonin (Melatonin) 5 mg PO QHS PRN PRN PRN Reason: SLEEP Last Admin: 10/12/18 22:04 Dose: 5 mg Meloxicam (Mobic) 7.5 mg PO BID [facility] Last Admin: 10/13/18 08:21 Dose: 7.5 mg Metformin [facility] ([facility]ophage) [facility] Last Admin: 10/13/18 08:21 Dose: 500 mg Methocarbamol (Robaxin) 500 mg PO BID [facility] Last Admin: 10/13/18 08:21 Dose: 500 mg Potassium Chloride (K-Dur) [facility] Last Admin: 10/13/18 08:21 Dose: 20 meq Pravastatin Sodium (Pravachol) 10 mg PO QHS [facility] Last Admin: 10/12/18 22:03 Dose: 10 mg Senna/Docusate Sodium (Senokot-S, Jyoti-Colace) 2 tablet PO BID [facility] Last Admin: 10/13/18 08:22 Dose: 2 tablet Medical Necessity - Tobacco Use Smoking Status: Never smoker Assessment/Plan All Active Problems (Last Reviewed 09/15/18 @ 08:34 by Harshal Chung MD) Bimalleolar fracture of right ankle (Acute) Debility s/p right bimalleolar ankle fracture/ORIF of right ankle, complicated by Osteoarthritis in her left hip, HTN, HLD, and DM II. Goal of rehab is hindu of functional independence. Plan: - Physical therapy for gait and balance - Occupational Therapy for ADLs - As needed analgesics - Bowel protocol - DVT prophylaxis: SCDs, ASA, Lovenox - Hypertension: Stable with good control, continue HCTZ, and Lisinopril, with dose adjustment as needed - Diabetes type 2 => Controlled ON oral hypoglycemics in addition to long acting insulin, Accu-Cheks a.c. and at bedtime and covered with sliding scale insulin - Right ankle ORIF- Cast dry, clean and intact - HLD - continue home dose of Statin - Weight bearing status - non weight bearing on right lower extremity - Acute pain management - Fentanyl patch 25mcq, [place], and Robaxin for muscle spasms in right calf - Fall precautions - AM Hypoglycemia = give a Snack at bed time - Increased pain in R ankle => Notified surgeon, Dr. Zeng - pending results of x-ray of ankle=> showed hardware is aligned, some mild soft tissue swelling in the distal ankle is improved. - Right hip pain - xray of hip/pelvic show a normal hip no acute process
[2018-10-13] MEDS: fentaNYL 25 MCG Patch TRANSDERM. (17:20)
[2018-10-13 17:36] LABS: Bedside Glucose 84 mg/dL (70-110)
[2018-10-13 19:31] VITALS: BP 155/84; PULSE 87; RESP 16; TEMP 37.1; O2SAT 96
[2018-10-13 21:01] LABS: Bedside Glucose 141 mg/dL (70-110)
[2018-10-13] MEDS: Pravastatin 20 MG Tablet 10 MG PO (21:18)
[2018-10-13] MEDS: MELATONIN 10 MG TABLET 5 MG PO (21:23)
[2018-10-14] MEDS: HYDROcodone Bitartrate/Apap 5/325 Tablet PO ×4 (02:45→21:09)
[2018-10-14 03:01] LABS: Bedside Glucose 77 mg/dL (70-110)
[2018-10-14] MEDS: Enoxaparin 40 MG/0.4 ML Syringe SC (05:59)
[2018-10-14 06:10] LABS: Bedside Glucose 75 mg/dL (70-110)
[2018-10-14 08:32] VITALS: BP 140/73; PULSE 76; RESP 17; TEMP 36.4; O2SAT 99
[2018-10-14] MEDS: Senna/Docusate Sodium 1 Tablet 2 TABLET PO ×2 (08:48→21:22)
[2018-10-14] MEDS: Methocarbamol 500 MG Tablet PO ×2 (08:48→21:22)
[2018-10-14] MEDS: Meloxicam 7.5 MG Tablet PO ×2 (08:48→21:10)
[2018-10-14] MEDS: Lisinopril 40 MG Tablet PO (08:48)
[2018-10-14] MEDS: Aspirin E.C. 81 MG Tablet PO (08:48)
[2018-10-14] MEDS: hydroCHLOROthiazide 25 MG Tablet PO (08:48)
[2018-10-14] MEDS: Atenolol 25 MG Tablet PO (08:48)
[2018-10-14 11:26] LABS: Bedside Glucose 90 mg/dL (70-110)
[2018-10-14 16:51] LABS: Bedside Glucose 79 mg/dL (70-110)
[2018-10-14 19:43] VITALS: BP 144/72; PULSE 82; RESP 16; TEMP 36.7; O2SAT 96
[2018-10-14 20:46] LABS: Bedside Glucose 101 mg/dL (70-110)
[2018-10-14] MEDS: LORazepam 0.5 MG Tablet PO (21:09)
[2018-10-14] MEDS: Pravastatin 20 MG Tablet 10 MG PO (21:10)
[2018-10-14] MEDS: MELATONIN 10 MG TABLET 5 MG PO (21:21)
[2018-10-15 02:56] LABS: Bedside Glucose 83 mg/dL (70-110)
[2018-10-15] MEDS: HYDROcodone Bitartrate/Apap 5/325 Tablet PO (03:11)
[2018-10-15] MEDS: Enoxaparin 40 MG/0.4 ML Syringe SC (06:27)
[2018-10-15 07:01] LABS: Bedside Glucose 79 mg/dL (70-110)
[2018-10-15 07:01] LABS: Bedside Glucose 106 mg/dL (70-110)
[2018-10-15 07:06] VITALS: BP 165/94; PULSE 78; RESP 16; TEMP 36.8; O2SAT 95
[2018-10-15] MEDS: Aspirin E.C. 81 MG Tablet PO (08:47)
[2018-10-15] MEDS: Atenolol 25 MG Tablet PO (08:48)
[2018-10-15] MEDS: Meloxicam 7.5 MG Tablet PO ×2 (08:48→21:27)
[2018-10-15] MEDS: Lisinopril 40 MG Tablet PO (08:48)
[2018-10-15] MEDS: Senna/Docusate Sodium 1 Tablet 2 TABLET PO ×2 (08:48→21:26)
[2018-10-15] MEDS: hydroCHLOROthiazide 25 MG Tablet PO (08:48)
[2018-10-15] MEDS: Methocarbamol 500 MG Tablet PO ×2 (08:48→21:27)
[2018-10-15 11:30] LABS: Bedside Glucose 118 mg/dL (70-110)
--- NOTE | 2018-10-15 14:29 | PCM.PN.NEU ---
Patient Problems: Active and Suspected Problems (Last Reviewed 09/15/18 @ 08:34 by Harshal Chung MD) Bimalleolar fracture of right ankle (Acute) Subjective: Reports some pain at night. She is on the fentanyl patch as well as hydrocodone. She is taking 0.5 mg of Ativan at bedtime and wants to increase this. No other complaints. Tolerating therapies. - Physical Exam General: Alert, Oriented x3, Cooperative Neurological: Cranial nerves II-XII grossly intact Psych/Mental Status: Normal Affect Vital Signs Temp Pulse Resp BP Pulse Ox 36.8 C 78 16 165/94 H 95 10/15/18 07:06 10/15/18 07:06 10/15/18 07:06 10/15/18 07:06 10/15/18 07:06 Oxygen Delivery Method Room Air Weight: 74.8 kg Body Mass Index (BMI) 28.9 Finger Stick Blood Glucose 77 Intake and Output for Last 24 Hours 10/13/18 10/14/18 10/15/18 23:59 23:59 23:59 Intake Total 840 / 840 480 / 480 460 / 460 Balance 840 / 840 480 / 480 460 / 460 POC Glucose 10/15/18 10/15/18 10/15/18 11:26 06:56 06:19 POC Glucose 118 H 106 79 10/15/18 10/14/18 10/14/18 02:52 20:41 16:46 POC Glucose 83 101 79 Current Medications Generic Name Dose Route Start Last Admin Trade Name Freq PRN Reason Stop Dose Admin Hydrocodone Bitart/Acetaminophen 2 tablet 10/04/18 15:51 10/15/18 03:11 [place] 5mg-325mg PO 2 tablet Q6H PRN PRN Administration SEVERE PAIN (6-10/10) Aspirin 81 mg 10/05/18 08:00 10/15/18 08:47 Ecotrin PO 81 mg DAILYCM [facility]JAMIN Administration Atenolol 25 mg 10/05/18 10:00 10/15/18 08:48 Tenormin (Beta Mary) PO 25 mg DAILY [facility] Administration Bisacodyl 10 mg 10/04/18 15:53 Dulcolax RECTAL .PRN X 1 PRN Constipation Dextrose 0 gm 10/04/18 18:59 D50w Syringe IV X1 PRN Hypoglycemia Protocol Enoxaparin Sodium 40 mg 10/05/18 06:00 10/15/18 06:27 Lovenox SC 40 mg DAILY@0600 [facility] Administration Fentanyl 25 mcg 10/04/18 16:00 10/13/18 17:20 Duragesic Patch TRANSDERM. 25 mcg Q3D [facility] Administration Glucagon 1 mg 10/04/18 15:51 IM .X1 PRN Hypoglycemia Glucagon 1 mg 10/04/18 18:59 IM .X1 PRN Hypoglycemia Glyburide 10 mg 10/05/18 08:00 10/15/18 08:47 Micronase PO 10 mg DAILY@0800 [facility] Administration Hydrochlorothiazide 25 mg 10/05/18 10:00 10/15/18 08:48 Hctz PO 25 mg DAILY [facility] Administration Insulin Glargine 20 units 10/04/18 22:00 10/14/18 21:12 Lantus ([facility]) SC 20 units QHS [facility] Administration Insulin Human Lispro 0 unit 10/04/18 16:00 10/15/18 12:09 Humalog Kwikpen ([facility]) SC Not Given ACHS [facility] Protocol Lisinopril 40 mg 10/05/18 10:00 10/15/18 08:48 Zestril PO 40 mg DAILY [facility] Administration Lorazepam 1 mg 10/15/18 14:29 Ativan PO QHS PRN PRN INSOMNIA Magnesium Hydroxide 30 ml 10/04/18 15:53 Milk Of Magnesia PO .PRN X 1 PRN Constipation Melatonin 5 mg 10/11/18 17:18 10/14/18 21:21 Melatonin PO 5 mg QHS PRN PRN Administration SLEEP Meloxicam 7.5 mg 10/04/18 22:00 10/15/18 08:48 Mobic PO 7.5 mg BID [facility] Administration Metformin HCl 500 mg 10/04/18 17:00 10/15/18 08:47 Glucophage PO 500 mg BIDCM [facility] Administration Methocarbamol 500 mg 10/04/18 22:00 10/15/18 08:48 Robaxin PO 500 mg BID [facility] Administration Potassium Chloride 20 meq 10/04/18 17:00 10/15/18 08:49 K-Dur PO 20 meq BIDCM [facility] Administration Pravastatin Sodium 10 mg 10/04/18 22:00 10/14/18 21:10 Pravachol PO 10 mg QHS [facility] Administration Senna/Docusate Sodium 2 tablet 10/04/18 22:00 10/15/18 08:48 Senokot-S, Jyoti-Colace PO 2 tablet BID [facility] Administration Medical Necessity - Tobacco Use Smoking Status: Never smoker Assessment/Plan All Active Problems (Last Reviewed 09/15/18 @ 08:34 by Harshal Chung MD) Bimalleolar fracture of right ankle (Acute) Debility status post right ankle fracture, open reduction internal fixation as well as hypertension and diabetes. Goal of rehab is yarsanism of prior level functional independence. Plan: Physical therapy for gait and balance Occupational Therapy for ADLs Bowel protocol PRN analgesics Nocturnal pain, will increase her Ativan to 1 mg at bedtime Social issues: Team meeting tomorrow. Does live in a trailer and may need to go home this week. She is concerned about this. Will address in team meeting tomorrow.
[2018-10-15 17:16] LABS: Bedside Glucose 68 mg/dL (70-110)
[2018-10-15 17:16] LABS: Bedside Glucose 64 mg/dL (70-110)
[2018-10-15 18:24] VITALS: BP 152/81; PULSE 84; RESP 16; TEMP 36.6; O2SAT 96
[2018-10-15 18:26] LABS: Bedside Glucose 84 mg/dL (70-110)
[2018-10-15 21:15] VITALS: PULSE 84; RESP 16; O2SAT 96
[2018-10-15] MEDS: MELATONIN 10 MG TABLET 5 MG PO (21:26)
[2018-10-15] MEDS: Pravastatin 20 MG Tablet 10 MG PO (21:27)
[2018-10-15] MEDS: LORazepam 0.5 MG Tablet 1 MG PO (21:28)
[2018-10-15 21:41] LABS: Bedside Glucose 117 mg/dL (70-110)
[2018-10-16 03:06] LABS: Bedside Glucose 93 mg/dL (70-110)
[2018-10-16] MEDS: HYDROcodone Bitartrate/Apap 5/325 Tablet PO ×2 (03:08→09:11)
[2018-10-16] MEDS: Enoxaparin 40 MG/0.4 ML Syringe SC (05:07)
[2018-10-16 06:40] LABS: Bedside Glucose 94 mg/dL (70-110)
[2018-10-16 06:55] VITALS: BP 151/84; PULSE 80; RESP 18; TEMP 36.7; O2SAT 96
[2018-10-16] MEDS: hydroCHLOROthiazide 25 MG Tablet PO (08:09)
[2018-10-16] MEDS: Meloxicam 7.5 MG Tablet PO ×2 (08:09→20:12)
[2018-10-16] MEDS: Aspirin E.C. 81 MG Tablet PO (08:09)
[2018-10-16] MEDS: Atenolol 25 MG Tablet PO (08:09)
[2018-10-16] MEDS: Senna/Docusate Sodium 1 Tablet 2 TABLET PO ×2 (08:10→20:12)
[2018-10-16] MEDS: Lisinopril 40 MG Tablet PO (08:10)
[2018-10-16] MEDS: Methocarbamol 500 MG Tablet PO ×2 (08:10→20:12)
--- NOTE | 2018-10-16 10:32 | PCM.PN.NEU ---
Patient Problems: Active and Suspected Problems (Last Reviewed 09/15/18 @ 08:34 by Harshal Chung MD) Bimalleolar fracture of right ankle (Acute) Subjective: Staffed in team meeting. Family was not at bedside, questions were answered. With Physical therapy, she is non-weight bearing on right lower extremity, she is supervision to stand and pivot into the wheelchair. With Occupational therapy, she is supervision for grooming and dressing. She is contact guard for showering. She is MOD I with mobility in the wheelchair, and has a ramp for easy access into her home. With Nursing, her pain is still not well controlled despite having [place], a Fentanyl patch, and Robaxin onboard. Her blood sugars are well controlled along with her blood pressure. the plan is to discharge her home on with Home health, to include Physical therapy and Occupational therapy. - Physical Exam General: Alert, Oriented x3, Cooperative HEENT: Atraumatic, PERRLA, EOMI, Normocephalic Neck: Supple, No JVD, Negative Carotid Bruits Lungs: Clear to auscultation, Normal air movement Cardiovascular: Regular rate, No murmurs Abdomen: Bowel Sounds Present, Soft, Non Tender Extremities: No edema, Capillary Refill Less than 3 Seconds Skin: No rashes, No breakdown Musculoskeletal: No Tenderness to Palpation of Joints or Extremities Neurological: Cranial nerves II-XII grossly intact Psych/Mental Status: Normal Affect, Appropriate, Alert and oriented to time, place, person, mood and affect Vital Signs Temp Pulse Resp BP Pulse Ox 98.0 F 80 18 151/84 H 96 10/16/18 06:55 10/16/18 06:55 10/16/18 06:55 10/16/18 06:55 10/16/18 06:55 Oxygen Delivery Method Room Air Weight: 74.8 kg Body Mass Index (BMI) 28.9 Finger Stick Blood Glucose 77 Intake and Output for Last 24 Hours 10/14/18 10/15/18 10/16/18 23:59 23:59 23:59 Intake Total 480 / 480 460 / 460 Balance 480 / 480 460 / 460 POC Glucose 10/16/18 10/16/18 10/15/18 06:35 03:02 21:19 POC Glucose 94 93 117 H 10/15/18 10/15/18 10/15/18 17:48 17:08 16:39 POC Glucose 84 64 L 68 L 10/15/18 11:26 POC Glucose 118 H Active Medications Hydrocodone Bitart/Acetaminophen ([place] 5mg-325mg) 2 tablet PO Q6H PRN PRN PRN Reason: SEVERE PAIN (6-1010) Last Admin: 10/16/18 09:11 Dose: 2 tablet [facility]) [facility] Last Admin: 10/16/18 08:09 Dose: 81 mg Atenolol (Tenormin (Beta Mary)) 25 mg PO DAILY [facility] Last Admin: 10/16/18 08:09 Dose: 25 mg Bisacodyl (Dulcolax) 10 mg RECTAL .PRN X 1 PRN PRN Reason: Constipation Dextrose (D50w Syringe) 0 gm IV X1 PRN; Protocol PRN Reason: Hypoglycemia Enoxaparin Sodium (Lovenox) 40 mg SC DAILY@0600 [facility] Last Admin: 10/16/18 05:07 Dose: 40 mg Fentanyl (Duragesic Patch) 25 mcg TRANSDERM. Q3D [facility] Last Admin: 10/13/18 17:20 Dose: 25 mcg Glucagon () 1 mg IM .X1 PRN PRN Reason: Hypoglycemia Glucagon () 1 mg IM .X1 PRN PRN Reason: Hypoglycemia Glyburide (Micronase) 10 mg PO DAILY@0800 [facility] Last Admin: 10/16/18 08:09 Dose: 10 mg Hydrochlorothiazide (Hctz) 25 mg PO DAILY [facility] Last Admin: 10/16/18 08:09 Dose: 25 mg Insulin Glargine (Lantus (Bkc)) 20 units SC QHS [facility] Last Admin: 10/15/18 21:28 Dose: 20 units Insulin Human Lispro (Humalog Kwikpen (Bkc)) 0 unit SC ACHS [facility]; Protocol Last Admin: 10/16/18 06:36 Dose: Not Given Lisinopril (Zestril) 40 mg PO DAILY [facility] Last Admin: 10/16/18 08:10 Dose: 40 mg Lorazepam (Ativan) 1 mg PO QHS PRN PRN PRN Reason: INSOMNIA Last Admin: 10/15/18 21:28 Dose: 1 mg Magnesium Hydroxide (Milk Of Magnesia) 30 ml PO .PRN X 1 PRN PRN Reason: Constipation Melatonin (Melatonin) 5 mg PO QHS PRN PRN PRN Reason: SLEEP Last Admin: 10/15/18 21:26 Dose: 5 mg Meloxicam (Mobic) 7.5 mg PO BID [facility] Last Admin: 10/16/18 08:09 Dose: 7.5 mg Metformin [facility] (Glucophage) [facility] Last Admin: 10/16/18 08:09 Dose: 500 mg Methocarbamol (Robaxin) 500 mg PO BID [facility] Last Admin: 10/16/18 08:10 Dose: 500 mg Potassium Chloride (K-Dur) 20 meq [facility] Last Admin: 10/16/18 08:09 Dose: 20 meq Pravastatin Sodium (Pravachol) 10 mg PO QHS [facility] Last Admin: 10/15/18 21:27 Dose: 10 mg Senna/Docusate Sodium (Senokot-S, Jyoti-Colace) 2 tablet PO BID [facility] Last Admin: 10/16/18 08:10 Dose: 2 tablet Medical Necessity - Tobacco Use Smoking Status: Never smoker Assessment/Plan All Active Problems (Last Reviewed 09/15/18 @ 08:34 by Harshal Chung MD) Bimalleolar fracture of right ankle (Acute) Debility s/p right bimalleolar ankle fracture/ORIF of right ankle, complicated by Osteoarthritis in her left hip, HTN, HLD, and DM II. Goal of rehab is holiness of functional independence. Plan: - Physical therapy for gait and balance - Occupational Therapy for ADLs - As needed analgesics - Bowel protocol - DVT prophylaxis: SCDs, ASA, Lovenox - Hypertension: Stable with good control, continue HCTZ, and Lisinopril, with dose adjustment as needed - Diabetes type 2 => Controlled ON oral hypoglycemics in addition to long acting insulin, Accu-Cheks a.c. and at bedtime and covered with sliding scale insulin - Right ankle ORIF- Cast dry, clean and intact - HLD - continue home dose of Statin - Weight bearing status - non weight bearing on right lower extremity - Acute pain management - Fentanyl patch 25mcq, [place], and Robaxin for muscle spasms in right calf - Fall precautions - AM Hypoglycemia = give a Snack at bed time - Increased pain in R ankle => Notified surgeon, Dr. Zeng - pending results of x-ray of ankle=> showed hardware is aligned, some mild soft tissue swelling in the distal ankle is improved. - Right hip pain - x-ray of hip/pelvic show a normal hip no acute process - The plan is for discharge home with home health to include Physical therapy and Occupational therapy.
--- NOTE | 2018-10-16 10:38 | PN.NEURO_ITS ---
Patient Problems: Active and Suspected Problems (Last Reviewed 09/15/18 @ 08:34 by Harshal Chung MD) Bimalleolar fracture of right ankle (Acute) Subjective: Staffed in team meeting. Family was not at bedside, questions were answered. With Physical therapy, she is non-weight bearing on right lower extremity, she is supervision to stand and pivot into the wheelchair. With Occupational therapy, she is supervision for grooming and dressing. She is contact guard for showering. She is MOD I with mobility in the wheelchair, and has a ramp for easy access into her home. With Nursing, her pain is still not well controlled despite having [place], a Fentanyl patch, and Robaxin onboard. Her blood sugars are well controlled along with her blood pressure. the plan is to discharge her home on with Home health, to include Physical therapy and Occupational therapy. - Physical Exam General: Alert, Oriented x3, Cooperative HEENT: Atraumatic, PERRLA, EOMI, Normocephalic Neck: Supple, No JVD, Negative Carotid Bruits Lungs: Clear to auscultation, Normal air movement Cardiovascular: Regular rate, No murmurs Abdomen: Bowel Sounds Present, Soft, Non Tender Extremities: No edema, Capillary Refill Less than 3 Seconds Skin: No rashes, No breakdown Musculoskeletal: No Tenderness to Palpation of Joints or Extremities Neurological: Cranial nerves II-XII grossly intact Psych/Mental Status: Normal Affect, Appropriate, Alert and oriented to time, place, person, mood and affect Vital Signs Temp Pulse Resp BP Pulse Ox 98.0 F 80 18 151/84 H 96 10/16/18 06:55 10/16/18 06:55 10/16/18 06:55 10/16/18 06:55 10/16/18 06:55 Oxygen Delivery Method Room Air Weight: 74.8 kg Body Mass Index (BMI) 28.9 Finger Stick Blood Glucose 77 Intake and Output for Last 24 Hours 10/14/18 10/15/18 10/16/18 23:59 23:59 23:59 Intake Total 480 / 480 460 / 460 Balance 480 / 480 460 / 460 POC Glucose 10/16/18 10/16/18 10/15/18 06:35 03:02 21:19 POC Glucose 94 93 117 H 10/15/18 10/15/18 10/15/18 17:48 17:08 16:39 POC Glucose 84 64 L 68 L 10/15/18 11:26 POC Glucose 118 H Active Medications Hydrocodone Bitart/Acetaminophen ([place] 5mg-325mg) 2 tablet PO Q6H PRN PRN PRN Reason: SEVERE PAIN (6-1010) Last Admin: 10/16/18 09:11 Dose: 2 [facility] Last Admin: 10/16/18 08:09 Dose: 81 mg Atenolol (Tenormin (Beta Mary)) 25 mg PO DAILY [facility] Last Admin: 10/16/18 08:09 Dose: 25 mg Bisacodyl (Dulcolax) 10 mg RECTAL .PRN X 1 PRN PRN Reason: Constipation Dextrose (D50w Syringe) 0 gm IV X1 PRN; Protocol PRN Reason: Hypoglycemia Enoxaparin Sodium (Lovenox) 40 mg SC DAILY@0600 [facility] Last Admin: 10/16/18 05:07 Dose: 40 mg Fentanyl (Duragesic Patch) 25 mcg TRANSDERM. Q3D [facility] Last Admin: 10/13/18 17:20 Dose: 25 mcg Glucagon () 1 mg IM .X1 PRN PRN Reason: Hypoglycemia Glucagon () 1 mg IM .X1 PRN PRN Reason: Hypoglycemia Glyburide (Micronase) 10 mg PO DAILY@0800 [facility] Last Admin: 10/16/18 08:09 Dose: 10 mg Hydrochlorothiazide (Hctz) 25 mg PO DAILY [facility] Last Admin: 10/16/18 08:09 Dose: 25 mg Insulin Glargine (Lantus (Bkc)) 20 units SC QHS [facility] Last Admin: 10/15/18 21:28 Dose: 20 units Insulin Human Lispro (Humalog Kwikpen (Bkc)) 0 unit SC ACHS [facility]; Protocol Last Admin: 10/16/18 06:36 Dose: Not Given Lisinopril (Zestril) 40 mg PO DAILY [facility] Last Admin: 10/16/18 08:10 Dose: 40 mg Lorazepam (Ativan) 1 mg PO QHS PRN PRN PRN Reason: INSOMNIA Last Admin: 10/15/18 21:28 Dose: 1 mg Magnesium Hydroxide (Milk Of Magnesia) 30 ml PO .PRN X 1 PRN PRN Reason: Constipation Melatonin (Melatonin) 5 mg PO QHS PRN PRN PRN Reason: SLEEP Last Admin: 10/15/18 21:26 Dose: 5 mg Meloxicam (Mobic) 7.5 mg PO BID [facility] Last Admin: 10/16/18 08:09 Dose: 7.5 mg Metformin [facility] (Glucophage) [facility] Last Admin: 10/16/18 08:09 Dose: 500 mg Methocarbamol (Robaxin) 500 mg PO BID [facility] Last Admin: 10/16/18 08:10 Dose: 500 mg Potassium Chloride (K-Dur) [facility]q [facility] Last Admin: 10/16/18 08:09 Dose: 20 meq Pravastatin Sodium (Pravachol) 10 mg PO QHS [facility] Last Admin: 10/15/18 21:27 Dose: 10 mg Senna/Docusate Sodium (Senokot-S, Jyoti-Colace) 2 tablet PO BID [facility] Last Admin: 10/16/18 08:10 Dose: 2 tablet Medical Necessity - Tobacco Use Smoking Status: Never smoker Assessment/Plan All Active Problems (Last Reviewed 09/15/18 @ 08:34 by Harshal Chung MD) Bimalleolar fracture of right ankle (Acute) Debility s/p right bimalleolar ankle fracture/ORIF of right ankle, complicated by Osteoarthritis in her left hip, HTN, HLD, and DM II. Goal of rehab is mosque of functional independence. Plan: - Physical therapy for gait and balance - Occupational Therapy for ADLs - As needed analgesics - Bowel protocol - DVT prophylaxis: SCDs, ASA, Lovenox - Hypertension: Stable with good control, continue HCTZ, and Lisinopril, with dose adjustment as needed - Diabetes type 2 => Controlled ON oral hypoglycemics in addition to long acting insulin, Accu-Cheks a.c. and at bedtime and covered with sliding scale insulin - Right ankle ORIF- Cast dry, clean and intact - HLD - continue home dose of Statin - Weight bearing status - non weight bearing on right lower extremity - Acute pain management - Fentanyl patch 25mcq, [place], and Robaxin for muscle spasms in right calf - Fall precautions - AM Hypoglycemia = give a Snack at bed time - Increased pain in R ankle => Notified surgeon, Dr. Zeng - pending results of x-ray of ankle=> showed hardware is aligned, some mild soft tissue swelling in the distal ankle is improved. - Right hip pain - x-ray of hip/pelvic show a normal hip no acute process - The plan is for discharge home with home health to include Physical therapy and Occupational therapy.
[2018-10-16 11:20] LABS: Bedside Glucose 161 mg/dL (70-110)
[2018-10-16] MEDS: Insulin Lispro 100 UNIT/ML INSULN.PEN SC (12:18)
--- NOTE | 2018-10-16 13:01 | CASEMGMT ---
Team meeting held. Patient present, no family present. Patient agreeable to this social services manager contacting patient daughter, Jenny. Patient to discharge on 10/19/18 to home alone. Team is recommending for patient to continue with physical and occupational therapy within the home at time of discharge. Patient is agreeable to recommendation and requesting for home health care to be set up through [facility] ([facility]). Patient reporting that Jenny will provide transportation home. Patient reporting to have all needed durable medical equipment already set up within the home. Patient also has a ramp set up into the home. Telephone call to Jenny, javier left. Support given. [facility] This social services manager making referral for physical and occupational therapy. Orders faxed. Proposed discharge date: 10/19/18 PLAN: Discharge to home alone with home health care. YANELY Sanabria, CIGAR MAKING MACHINE OPERATOR
--- NOTE | 2018-10-16 16:17 | PN_ITS ---
Patient Problems: Active and Suspected Problems (Last Reviewed 09/15/18 @ 08:34 by Harshal Chung MD) Bimalleolar fracture of right ankle (Acute) Subjective: Patient is a 68-year-old female admitted with right bimalleolar ankle fracture who underwent right ankle ORIF on 10/03/2018 by podiatry. Patient was transferred to the inpatient rehab unit following stabilization of her medical condition 11/16/2017: Patient remains on the inpatient rehab unit where she is currently undergoing rehab admit to some straightening in her ankle Objective: GENERAL: cooperative HEENT: Atraumatic; EYES; Anicteric, NECK; supple, normal thyroid, RESPIRATORY: Diminished to auscultation bilaterally, CARDIOVASCULAR: Regular S1 S2, no audible murmurs GI: soft, non-tender, normoactive bowel sounds, : No Renal angle tenderness; EXTREMITIES: Right ankle in surgical dressing NEURO: Awake; no lateralizing signs. SKIN: No Rash Vitals/I&O's: Vital Signs Temp Pulse Resp BP Pulse Ox 98.0 F 80 18 151/84 H 96 10/16/18 06:55 10/16/18 06:55 10/16/18 06:55 10/16/18 06:55 10/16/18 06:55 Oxygen Delivery Method Room Air Weight: 74.8 kg Body Mass Index (BMI) 28.9 Finger Stick Blood Glucose 77 Intake and Output for Last 24 Hours 10/14/18 10/15/18 10/16/18 23:59 23:59 23:59 Intake Total 480 / 480 460 / 460 Balance 480 / 480 460 / 460 Laboratory Results 10/15/18 16:39: POC Glucose 68 L 10/15/18 17:08: POC Glucose 64 L 10/15/18 17:48: POC Glucose 84 10/15/18 21:19: POC Glucose 117 H 10/16/18 03:02: POC Glucose 93 10/16/18 06:35: POC Glucose 94 10/16/18 11:15: POC Glucose 161 H Current Medications Hydrocodone Bitart/Acetaminophen ([place] 5mg-325mg) 2 tablet PO Q6H PRN PRN PRN Reason: SEVERE PAIN (6-10/10) Last Admin: 10/16/18 09:11 Dose: 2 tablet Aspirin (Ecotrin) 81 mg PO [facility]ILY[facility] Last Admin: 10/16/18 08:09 Dose: 81 mg Atenolol (Tenormin (Beta Mary)) 25 mg PO DAILY [facility] Last Admin: 10/16/18 08:09 Dose: 25 mg Bisacodyl (Dulcolax) 10 mg RECTAL .PRN X 1 PRN PRN Reason: Constipation Dextrose (D50w Syringe) 0 gm IV X1 PRN; Protocol PRN Reason: Hypoglycemia Enoxaparin Sodium (Lovenox) 40 mg SC DAILY@0600 [facility] Last Admin: 10/16/18 05:07 Dose: 40 mg Fentanyl (Duragesic Patch) 25 mcg TRANSDERM. Q3D [facility] Last Admin: 10/13/18 17:20 Dose: 25 mcg Glucagon () 1 mg IM .X1 PRN PRN Reason: Hypoglycemia Glucagon () 1 mg IM .X1 PRN PRN Reason: Hypoglycemia Glyburide (Micronase) 10 mg PO DAILY@0800 [facility] Last Admin: 10/16/18 08:09 Dose: 10 mg Hydrochlorothiazide (Hctz) 25 mg PO DAILY [facility] Last Admin: 10/16/18 08:09 Dose: 25 mg Insulin Glargine (Lantus (Bkc)) 20 units SC QHS [facility] Last Admin: 10/15/18 21:28 Dose: 20 units Insulin Human Lispro (Humalog Kwikpen (Bkc)) 0 unit SC [facility]; Protocol Last Admin: 10/16/18 12:18 Dose: 3 units Lisinopril (Zestril) 40 mg PO DAILY [facility] Last Admin: 10/16/18 08:10 Dose: 40 mg Lorazepam (Ativan) 1 mg PO QHS PRN PRN PRN Reason: INSOMNIA Last Admin: 10/15/18 21:28 Dose: 1 mg Magnesium Hydroxide (Milk Of Magnesia) 30 ml PO .PRN X 1 PRN PRN Reason: Constipation Melatonin (Melatonin) 5 mg PO QHS PRN PRN PRN Reason: SLEEP Last Admin: 10/15/18 21:26 Dose: 5 mg Meloxicam (Mobic) 7.5 mg PO BID [facility] Last Admin: 10/16/18 08:09 Dose: 7.5 mg [facility]) [facility] Last Admin: 10/16/18 08:09 Dose: 500 mg Methocarbamol (Robaxin) 500 mg PO BID [facility] Last Admin: 10/16/18 08:10 Dose: 500 mg Potassium Chloride (K-Dur) 20 meq PO BIDCM [facility] Last Admin: 10/16/18 08:09 Dose: 20 meq Pravastatin Sodium (Pravachol) 10 mg PO QHS [facility] Last Admin: 10/15/18 21:27 Dose: 10 mg Senna/Docusate Sodium (Senokot-S, Jyoti-Colace) 2 tablet PO BID [facility] Last Admin: 10/16/18 08:10 Dose: 2 tablet Medical Necessity - Tobacco Use Smoking Status: Never smoker Assessment/Plan All Active Problems (Last Reviewed 09/15/18 @ 08:34 by Harshal Chung MD) Bimalleolar fracture of right ankle (Acute) Patient is a 68-year-old female admitted with right bimalleolar ankle fracture who underwent right ankle ORIF on 10/03/2018 by podiatry. Patient was transferred to the inpatient rehab unit following stabilization of her medical condition 1. Status post right ankle ORIF on 10/03/2018 on account of right bimalleolar ankle fracture. Patient was transferred to the inpatient rehab unit has tolerated PT well so far with plans for patient to be discharged home on 10/19/2018 2. Hypertension-blood pressure controlled, home medications continued with dose adjustment as needed 3. Dyslipidemia-patient is on statin therapy, continued at home dose 4. Diabetes mellitus type II: Controlled on oral hypoglycemics in addition to long acting insulin, Accu-Cheks a.c. and at bedtime and covered with sliding scale insulin 5. DVT prophylaxis SC Lovenox Code Visit Inpatient E&M: 24858 Subs Hosp L2
[2018-10-16] MEDS: fentaNYL 25 MCG Patch TRANSDERM. (17:18)
[2018-10-16 17:26] LABS: Bedside Glucose 120 mg/dL (70-110)
[2018-10-16 20:00] VITALS: BP 157/87; PULSE 83; RESP 16; TEMP 36.6; O2SAT 95
[2018-10-16] MEDS: MELATONIN 10 MG TABLET 5 MG PO (20:11)
[2018-10-16] MEDS: Pravastatin 20 MG Tablet 10 MG PO (20:12)
[2018-10-16] MEDS: LORazepam 0.5 MG Tablet 1 MG PO (20:12)
[2018-10-16] MEDS: Magnesium Hydroxide 30 ML UDC PO (20:15)
--- NOTE | 2018-10-16 20:40 | NURSING ---
insulin held this d/t accu-check being 90. rn aware
[2018-10-16 20:46] LABS: Bedside Glucose 90 mg/dL (70-110)
[2018-10-17] MEDS: HYDROcodone Bitartrate/Apap 5/325 Tablet PO ×2 (01:40→18:20)
[2018-10-17 03:51] LABS: Bedside Glucose 87 mg/dL (70-110)
--- NOTE | 2018-10-17 04:54 | NURSING ---
Reviewed and agree with [employer]CHIT[employer] documentation and FIMs charting.
[2018-10-17] MEDS: Enoxaparin 40 MG/0.4 ML Syringe SC (06:31)
[2018-10-17 07:10] LABS: Bedside Glucose 117 mg/dL (70-110)
[2018-10-17 08:35] VITALS: BP 141/81; PULSE 83; RESP 16; TEMP 37.1; O2SAT 96
[2018-10-17] MEDS: Lisinopril 40 MG Tablet PO (08:36)
[2018-10-17] MEDS: Atenolol 25 MG Tablet PO (08:37)
[2018-10-17] MEDS: hydroCHLOROthiazide 25 MG Tablet PO (08:37)
[2018-10-17] MEDS: Meloxicam 7.5 MG Tablet PO ×2 (08:37→22:10)
[2018-10-17] MEDS: Senna/Docusate Sodium 1 Tablet 2 TABLET PO ×2 (08:37→22:10)
[2018-10-17] MEDS: Aspirin E.C. 81 MG Tablet PO (08:38)
[2018-10-17] MEDS: Methocarbamol 500 MG Tablet PO ×2 (08:38→22:10)
--- NOTE | 2018-10-17 11:27 | PCM.PN.ORT ---
Patient Problems: Active and Suspected Problems (Last Reviewed 09/15/18 @ 08:34 by Harshal Chung MD) Localized edema (Acute) Other specified noninfective disorders of lymphatic vessels and lymph nodes (Acute) Bimalleolar fracture of right ankle (Acute) Subjective: Pt evaluated at bedside and states she is feeling well. She is doing well with physical therapy. She will be discharged 10/19/2018. Denies f/c/n/v/calf pain/cp/sob. Objective: RLE: Vasc: edema improved, crf < 3 seconds to all digits, warm to warm, nontender with calf compression Neuro: light touch diminished Ms: able to wiggle toes, df/pf ankle without pain, posterior splint intact, forefoot appears to be supinated but is reducible, L foot supination also noted Derm: skin edges are well approximated with no SOI, sutures removed without incident and skin edges remained well coapted, no drainage. - Physical Exam General: Alert, Cooperative, No apparent distress Vital Signs Temp Pulse Resp BP Pulse Ox 98.8 F 83 16 141/81 H 96 10/17/18 08:35 10/17/18 08:35 10/17/18 08:35 10/17/18 08:35 10/17/18 08:35 Oxygen Delivery Method Room Air Weight: 164 lb 14.492 oz Body Mass Index (BMI) 28.9 Finger Stick Blood Glucose 77 Intake and Output for Last 24 Hours 10/15/18 10/16/18 10/17/18 23:59 23:59 23:59 Intake Total 460 / 460 Balance 460 / 460 POC Glucose 10/17/18 10/17/18 10/16/18 06:33 03:43 20:29 POC Glucose 117 H 87 90 10/16/18 17:17 POC Glucose 120 H Medical Necessity - Tobacco Use Smoking Status: Never smoker Assessment/Plan All Active Problems (Last Reviewed 09/15/18 @ 08:34 by Harshal Chung MD) Localized edema (Acute) Other specified noninfective disorders of lymphatic vessels and lymph nodes (Acute) Bimalleolar fracture of right ankle (Acute) Pt is a 68 yo F s/p ORIF R bimalleolar fracture, edema DOS 10/03/2018 -Pt evaluated at bedside -labs, notes and studies reviewed -Dressing changed, sutures removed, dry sterile dressing applied to incisions -multilayer compressive dressing applied with a new posterior splint to aid in reducing foot supination. will obtain new xrays prior to dc. -keep c/d/i. NWB RLE. May remove outermost miles bandage and posterior splint to begin gentle ankle ROM exercises 1-2 times daily. Reapply posterior splint and miles bandages after activity. -Pt will see me at [facility] on November 06 or sooner if needed. Thank you for making appointment. Patient is aware. -Please call me with questions or concerns
--- NOTE | 2018-10-17 11:38 | RAD_ITS ---
STUDY: X-RAY - RIGHT ANKLE REASON FOR EXAM: Female, 68 years old. Trauma. TECHNIQUE: 3 view(s) of the ankle. COMPARISON: 10/11/2018. FINDINGS: The patient is status post internal fixation with lateral plate and screws in the fibula and screws fixing the medial malleolus. There is no acute fracture. Alignment is anatomic. There is mild medial soft tissue swelling. RAD/Ankle min 3 Views IMPRESSION: Anatomic alignment status post internal fixation of the distal fibula and medial malleolus. Electronically Signed: Clara Alegre MD at 19:01 EST Tel , Service support ,
[2018-10-17 11:46] LABS: Bedside Glucose 136 mg/dL (70-110)
--- NOTE | 2018-10-17 16:40 | CASEMGMT ---
Social Work Spoke with patient in room. This social media marketing analyst collaborating on discharge plan. Patient plans to discharge to home alone with home health services. This social media marketing analyst inquiring in regards to meals. Patient reporting to be interested in [employer]. Patient does have Medicaid. This social media marketing analyst broached topic of PASSPORT services as well. Patient is agreeable to referral to PASSPORT services and thus receiving [employer]. Patient reporting that patient daughter plans to provide transportation home for patient at time of discharge. Support given. Referral for PASSPORT services made to ODILON Gallardo. Proposed discharge date: 10/19/18 PLAN: Discharge to home alone with home health care, pending PASSPORT service referral at this time. JESSICA SanabriaW, CINDER SNAPPER
[2018-10-17 17:15] LABS: Bedside Glucose 98 mg/dL (70-110)
[2018-10-17 21:50] VITALS: BP 140/78; PULSE 76; RESP 18; TEMP 36.7; O2SAT 97
[2018-10-17] MEDS: Pravastatin 20 MG Tablet 10 MG PO (22:11)
[2018-10-17 22:25] LABS: Bedside Glucose 114 mg/dL (70-110)
[2018-10-17] MEDS: MELATONIN 10 MG TABLET 5 MG PO (22:30)
[2018-10-18 03:36] LABS: Bedside Glucose 71 mg/dL (70-110)
--- NOTE | 2018-10-18 04:32 | NURSING ---
Reviewed and agree with [facility] documentation and FIMs charting
[2018-10-18] MEDS: Enoxaparin 40 MG/0.4 ML Syringe SC (06:52)
[2018-10-18] MEDS: HYDROcodone Bitartrate/Apap 5/325 Tablet PO ×2 (07:00→20:30)
[2018-10-18 07:01] LABS: Bedside Glucose 96 mg/dL (70-110)
[2018-10-18 07:04] VITALS: BP 128/75; PULSE 69; RESP 18; TEMP 36.7; O2SAT 96
[2018-10-18] MEDS: Atenolol 25 MG Tablet PO (07:48)
[2018-10-18] MEDS: Senna/Docusate Sodium 1 Tablet 2 TABLET PO ×2 (07:48→20:28)
[2018-10-18] MEDS: Meloxicam 7.5 MG Tablet PO ×2 (07:48→20:29)
[2018-10-18] MEDS: hydroCHLOROthiazide 25 MG Tablet PO (07:48)
[2018-10-18] MEDS: Methocarbamol 500 MG Tablet PO ×2 (07:49→20:28)
[2018-10-18] MEDS: Aspirin E.C. 81 MG Tablet PO (07:49)
[2018-10-18] MEDS: Lisinopril 40 MG Tablet PO (07:50)
--- NOTE | 2018-10-18 11:17 | PCM.PN.NEU ---
Patient Problems: Active and Suspected Problems (Last Reviewed 09/15/18 @ 08:34 by Harshal Chung MD) Other specified noninfective disorders of lymphatic vessels and lymph nodes (Acute) Localized edema (Acute) Bimalleolar fracture of right ankle (Acute) Subjective: Patient seen, pain is better controlled. Tolerating therapy, plan is for discharge on 10/19 with home health and community services to assist the patient once she is home. - Physical Exam General: Alert, Oriented x3, Cooperative HEENT: Atraumatic, PERRLA, EOMI, Normocephalic Neck: Supple, No JVD, Negative Carotid Bruits Lungs: Clear to auscultation, Normal air movement Cardiovascular: Regular rate, No murmurs Abdomen: Bowel Sounds Present, Soft, Non Tender Extremities: No edema, Capillary Refill Less than 3 Seconds Skin: No rashes, No breakdown Musculoskeletal: No Tenderness to Palpation of Joints or Extremities Neurological: Cranial nerves II-XII grossly intact Psych/Mental Status: Normal Affect, Appropriate, Alert and oriented to time, place, person, mood and affect Vital Signs Temp Pulse Resp BP Pulse Ox 98.0 F 69 18 128/75 H 96 10/18/18 07:04 10/18/18 07:04 10/18/18 07:04 10/18/18 07:04 10/18/18 07:04 Oxygen Delivery Method Room Air Weight: 74.8 kg Body Mass Index (BMI) 28.9 Finger Stick Blood Glucose 77 Intake and Output for Last 24 Hours 10/16/18 10/17/18 10/18/18 23:59 23:59 23:59 Intake Total 260 / 260 Balance 260 / 260 POC Glucose 10/18/18 10/18/18 10/17/18 06:53 03:30 22:04 POC Glucose 96 71 114 H 10/17/18 10/17/18 17:13 11:34 POC Glucose 98 136 H Active Medications Hydrocodone Bitart/Acetaminophen ([place] 5mg-325mg) 2 tablet PO Q6H PRN PRN PRN Reason: SEVERE PAIN (6-10/10) Last Admin: 10/18/18 07:00 Dose: 2 tablet [facility]) [facility] Last Admin: 10/18/18 07:49 Dose: 81 mg Atenolol (Tenormin (Beta Mary)) 25 mg PO DAILY [facility] Last Admin: 10/18/18 07:48 Dose: 25 mg Bisacodyl (Dulcolax) 10 mg RECTAL .PRN X 1 PRN PRN Reason: Constipation Dextrose (D50w Syringe) 0 gm IV X1 PRN; Protocol PRN Reason: Hypoglycemia Enoxaparin Sodium (Lovenox) 40 mg SC DAILY@0600 [facility] Last Admin: 10/18/18 06:52 Dose: 40 mg Fentanyl (Duragesic Patch) 25 mcg TRANSDERM. Q3D [facility] Last Admin: 10/16/18 17:18 Dose: 25 mcg Glucagon () 1 mg IM .X1 PRN PRN Reason: Hypoglycemia Glucagon () 1 mg IM .X1 PRN PRN Reason: Hypoglycemia Glyburide (Micronase) 10 mg PO DAILY@0800 [facility] Last Admin: 10/18/18 07:48 Dose: 10 mg Hydrochlorothiazide (Hctz) 25 mg PO DAILY [facility] Last Admin: 10/18/18 07:48 Dose: 25 mg Insulin Glargine (Lantus (Bkc)) 20 units SC QHS [facility] Last Admin: 10/17/18 22:11 Dose: 20 units Insulin Human Lispro (Humalog Kwikpen (Bkc)) 0 unit SC ACHS [facility]; Protocol Last Admin: 10/18/18 06:55 Dose: Not Given Lisinopril (Zestril) 40 mg PO DAILY [facility] Last Admin: 10/18/18 07:50 Dose: 40 mg Lorazepam (Ativan) 1 mg PO QHS PRN PRN PRN Reason: INSOMNIA Last Admin: 10/16/18 20:12 Dose: 1 mg Magnesium Hydroxide (Milk Of Magnesia) 30 ml PO .PRN X 1 PRN PRN Reason: Constipation Last Admin: 10/16/18 20:15 Dose: 30 ml Melatonin (Melatonin) 5 mg PO QHS PRN PRN PRN Reason: SLEEP Last Admin: 10/17/18 22:30 Dose: 5 mg Meloxicam (Mobic) 7.5 mg PO BID [facility] Last Admin: 10/18/18 07:48 Dose: 7.5 mg Met[facility] ([facility]) [facility] Last Admin: 10/18/18 07:49 Dose: 500 mg Methocarbamol (Robaxin) 500 mg PO BID [facility] Last Admin: 10/18/18 07:49 Dose: 500 mg Potassium Chloride (K-Dur) [facility] Last Admin: 10/18/18 07:48 Dose: 20 meq Pravastatin Sodium (Pravachol) 10 mg PO QHS [facility] Last Admin: 10/17/18 22:11 Dose: 10 mg Senna/Docusate Sodium (Senokot-S, Jyoti-Colace) 2 tablet PO BID [facility] Last Admin: 10/18/18 07:48 Dose: 2 tablet Medical Necessity - Tobacco Use Smoking Status: Never smoker Assessment/Plan All Active Problems (Last Reviewed 09/15/18 @ 08:34 by Harshal Chung MD) Other specified noninfective disorders of lymphatic vessels and lymph nodes (Acute) Localized edema (Acute) Bimalleolar fracture of right ankle (Acute) Debility s/p right bimalleolar ankle fracture/ORIF of right ankle, complicated by Osteoarthritis in her left hip, HTN, HLD, and DM II. Goal of rehab is buddhism of functional independence. Plan: - Physical therapy for gait and balance - Occupational Therapy for ADLs - As needed analgesics - Bowel protocol - DVT prophylaxis: SCDs, ASA, Lovenox - Hypertension: Stable with good control, continue HCTZ, and Lisinopril, with dose adjustment as needed - Diabetes type 2 => Controlled ON oral hypoglycemics in addition to long acting insulin, Accu-Cheks a.c. and at bedtime and covered with sliding scale insulin - Right ankle ORIF- Cast dry, clean and intact - HLD - continue home dose of Statin - Weight bearing status - non weight bearing on right lower extremity - Acute pain management - Fentanyl patch 25mcq, [place], and Robaxin for muscle spasms in right calf - Fall precautions - AM Hypoglycemia = give a Snack at bed time - Increased pain in R ankle => Notified surgeon, Dr. Zeng - pending results of x-ray of ankle=> showed hardware is aligned, some mild soft tissue swelling in the distal ankle is improved. - Right hip pain - x-ray of hip/pelvic show a normal hip no acute process - The plan is for discharge home with home health to include Physical therapy and Occupational therapy.
[2018-10-18 12:21] LABS: Bedside Glucose 77 mg/dL (70-110)
--- NOTE | 2018-10-18 15:38 | PN_ITS ---
Patient Problems: Active and Suspected Problems (Last Reviewed 09/15/18 @ 08:34 by Harshal Chung MD) Other specified noninfective disorders of lymphatic vessels and lymph nodes (Acute) Localized edema (Acute) Bimalleolar fracture of right ankle (Acute) Subjective: Patient seen with plans for patient to be discharged home on 10/19/2018 ordered CBC BMP Objective: GENERAL: cooperative HEENT: Atraumatic; EYES; Anicteric, NECK; supple, normal thyroid, RESPIRATORY: Diminished to auscultation bilaterally, CARDIOVASCULAR: Regular S1 S2, no audible murmurs GI: soft, non-tender, normoactive bowel sounds, : No Renal angle tenderness; EXTREMITIES: Right ankle in surgical dressing NEURO: Awake; no lateralizing signs. SKIN: No Rash Vitals/I&O's: Vital Signs Temp Pulse Resp BP Pulse Ox 98.0 F 69 18 128/75 H 96 10/18/18 07:04 10/18/18 07:04 10/18/18 07:04 10/18/18 07:04 10/18/18 07:04 Oxygen Delivery Method Room Air Weight: 74.8 kg Body Mass Index (BMI) 28.9 Finger Stick Blood Glucose 77 Intake and Output for Last 24 Hours 10/16/18 10/17/18 10/18/18 23:59 23:59 23:59 Intake Total 520 / 520 Balance 520 / 520 Laboratory Results 10/17/18 17:13: POC Glucose 98 10/17/18 22:04: POC Glucose 114 H 10/18/18 03:30: POC Glucose 71 10/18/18 06:53: POC Glucose 96 10/18/18 11:54: POC Glucose 77 Current Medications Hydrocodone Bitart/Acetaminophen (House 5mg-325mg) 2 tablet PO Q6H PRN PRN PRN Reason: SEVERE PAIN (6-10/10) Last Admin: 10/18/18 07:00 Dose: 2 tablet [facility] Last Admin: 10/18/18 07:49 Dose: 81 mg Atenolol (Tenormin (Beta Mary)) 25 mg PO DAILY [facility] Last Admin: 10/18/18 07:48 Dose: 25 mg Bisacodyl (Dulcolax) 10 mg RECTAL .PRN X 1 PRN PRN Reason: Constipation Dextrose (D50w Syringe) 0 gm IV X1 PRN; Protocol PRN Reason: Hypoglycemia Enoxaparin Sodium (Lovenox) 40 mg SC DAILY@0600 [facility] Last Admin: 10/18/18 06:52 Dose: 40 mg Fentanyl (Duragesic Patch) 25 mcg TRANSDERM. Q3D [facility] Last Admin: 10/16/18 17:18 Dose: 25 mcg Glucagon () 1 mg IM .X1 PRN PRN Reason: Hypoglycemia Glucagon () 1 mg IM .X1 PRN PRN Reason: Hypoglycemia Glyburide (Micronase) 10 mg PO DAILY@0800 [facility] Last Admin: 10/18/18 07:48 Dose: 10 mg Hydrochlorothiazide (Hctz) 25 mg PO DAILY [facility] Last Admin: 10/18/18 07:48 Dose: 25 mg Insulin Glargine (Lantus (Bkc)) 20 units SC QHS [facility] Last Admin: 10/17/18 22:11 Dose: 20 units Insulin Human Lispro (Humalog Kwikpen (Bkc)) 0 unit SC [facility]; Protocol Last Admin: 10/18/18 12:22 Dose: Not Given Lisinopril (Zestril) 40 mg PO DAILY [facility] Last Admin: 10/18/18 07:50 Dose: 40 mg Lorazepam (Ativan) 1 mg PO QHS PRN PRN PRN Reason: INSOMNIA Last Admin: 10/16/18 20:12 Dose: 1 mg Magnesium Hydroxide (Milk Of Magnesia) 30 ml PO .PRN X 1 PRN PRN Reason: Constipation Last Admin: 10/16/18 20:15 Dose: 30 ml Melatonin (Melatonin) 5 mg PO QHS PRN PRN PRN Reason: SLEEP Last Admin: 10/17/18 22:30 Dose: 5 mg Meloxicam (Mobic) 7.5 mg PO BID [facility] Last Admin: 10/18/18 07:48 Dose: 7.5 mg Metformin HCl (Glucophage) [facility] Last Admin: 10/18/18 07:49 Dose: 500 mg Methocarbamol (Robaxin) 500 mg PO BID [facility] Last Admin: 10/18/18 07:49 Dose: 500 mg Potassium Chloride (K-Dur) [facility] Last Admin: 10/18/18 07:48 Dose: 20 meq Pravastatin Sodium (Pravachol) 10 mg PO QHS [facility] Last Admin: 10/17/18 22:11 Dose: 10 mg Senna/Docusate Sodium (Senokot-S, Jyoti-Colace) 2 tablet PO BID [facility] Last Admin: 10/18/18 07:48 Dose: 2 tablet Medical Necessity - Tobacco Use Smoking Status: Never smoker Assessment/Plan All Active Problems (Last Reviewed 09/15/18 @ 08:34 by Harshal Chung MD) Other specified noninfective disorders of lymphatic vessels and lymph nodes (Acute) Localized edema (Acute) Bimalleolar fracture of right ankle (Acute) Patient is a 68-year-old female admitted with right bimalleolar ankle fracture who underwent right ankle ORIF on 10/03/2018 by podiatry. Patient was transferred to the inpatient rehab unit following stabilization of her medical condition 1. Status post right ankle ORIF on 10/03/2018 on account of right bimalleolar ankle fracture. Patient was transferred to the inpatient rehab unit has tolerated PT well so far with plans for patient to be discharged home on 10/19/2018 2. Hypertension-blood pressure controlled, home medications continued with dose adjustment as needed 3. Dyslipidemia-patient is on statin therapy, continued at home dose 4. Diabetes mellitus type II: Controlled on oral hypoglycemics in addition to long acting insulin, Accu-Cheks a.c. and at bedtime and covered with sliding scale insulin 5. DVT prophylaxis SC Lovenox Code Visit Inpatient E&M: 75502 Subs Hosp L2
[2018-10-18 17:11] LABS: Bedside Glucose 83 mg/dL (70-110)
[2018-10-18 19:15] VITALS: BP 155/80; PULSE 80; RESP 16; TEMP 36.8; O2SAT 95
[2018-10-18] MEDS: Pravastatin 20 MG Tablet 10 MG PO (20:28)
[2018-10-18] MEDS: MELATONIN 10 MG TABLET 5 MG PO (20:31)
[2018-10-18 20:56] LABS: Bedside Glucose 102 mg/dL (70-110)
--- NOTE | 2018-10-18 21:00 | NURSING ---
PT EATS PEANUT BUTTER CRACKERS AND DRINKS WHOLE WHITE MILK FOR HS SNACK.
[2018-10-19] MEDS: LORazepam 0.5 MG Tablet 1 MG PO (00:25)
--- NOTE | 2018-10-19 02:45 | NURSING ---
PT AWAKENED FOR BLOOD SUGAR CHECK. GIVEN PEANUT BUTTER CRACKERS AND WHOLE MILK, AND APPLE JUICE TO DRINK FOR BLOOD SUGAR OF 71. PT IS ALERT AND ACTING APPROPRIATELY.
[2018-10-19 02:51] LABS: Bedside Glucose 71 mg/dL (70-110)
[2018-10-19 04:25] LABS: Bedside Glucose 94 mg/dL (70-110)
[2018-10-19] MEDS: Enoxaparin 40 MG/0.4 ML Syringe SC (07:01)
[2018-10-19 07:16] LABS: Bedside Glucose 95 mg/dL (70-110)
[2018-10-19 07:45] VITALS: BP 157/68; PULSE 86; RESP 16; TEMP 36.6; O2SAT 96
[2018-10-19] MEDS: Aspirin E.C. 81 MG Tablet PO (08:16)
[2018-10-19] MEDS: hydroCHLOROthiazide 25 MG Tablet PO (08:16)
[2018-10-19] MEDS: Atenolol 25 MG Tablet PO (08:16)
[2018-10-19] MEDS: Lisinopril 40 MG Tablet PO (08:16)
[2018-10-19] MEDS: Methocarbamol 500 MG Tablet PO (08:16)
[2018-10-19] MEDS: Meloxicam 7.5 MG Tablet PO (08:16)
[2018-10-19] MEDS: Senna/Docusate Sodium 1 Tablet 2 TABLET PO (08:16)
[2018-10-19] MEDS: HYDROcodone Bitartrate/Apap 5/325 Tablet PO (08:23)
--- NOTE | 2018-10-19 09:52 | PCM.RU.DC ---
Rehab Discharge Summary DATE OF ADMISSION: 10/04/18 DATE OF DISCHARGE: 10/19/18 - Rehab Diagnosis Right Ankle Fracture - Physical Exam General: Alert, Oriented x3, Cooperative HEENT: Atraumatic, PERRLA, EOMI, Normocephalic Neck: Supple, No JVD, Negative Carotid Bruits Lungs: Clear to auscultation, Normal air movement Cardiovascular: Regular rate, No murmurs Abdomen: Bowel Sounds Present, Soft, Non Tender Extremities: No edema, Capillary Refill Less than 3 Seconds Skin: No rashes, No breakdown Musculoskeletal: No Tenderness to Palpation of Joints or Extremities Neurological: Cranial nerves II-XII grossly intact Psych/Mental Status: Normal Affect, Appropriate, Alert and oriented to time, place, person, mood and affect Vital Signs Temp Pulse Resp BP Pulse Ox 97.9 F 86 16 157/68 H 96 10/19/18 07:45 10/19/18 07:45 10/19/18 07:45 10/19/18 07:45 10/19/18 07:45 Oxygen Delivery Method Room Air Weight: 73.2 kg Body Mass Index (BMI) 28.9 Finger Stick Blood Glucose 77 Intake and Output for Last 24 Hours 10/17/18 10/18/18 10/19/18 23:59 23:59 23:59 Intake Total 760 / 760 240 / 240 Balance 760 / 760 240 / 240 POC Glucose 10/19/18 10/19/18 10/19/18 06:56 04:19 02:42 POC Glucose 95 94 71 10/18/18 10/18/18 10/18/18 20:26 17:00 11:54 POC Glucose 102 83 77 Active Medications Hydrocodone Bitart/Acetaminophen ([place] 5mg-325mg) 2 tablet PO Q6H PRN PRN PRN Reason: SEVERE PAIN (6-10/10) Last Admin: 10/19/18 08:23 Dose: 2 tablet [facility] Last Admin: 10/19/18 08:16 Dose: 81 mg Atenolol (Tenormin (Beta Mary)) 25 mg PO DAILY [facility] Last Admin: 10/19/18 08:16 Dose: 25 mg Bisacodyl (Dulcolax) 10 mg RECTAL .PRN X 1 PRN PRN Reason: Constipation Dextrose (D50w Syringe) 0 gm IV X1 PRN; Protocol PRN Reason: Hypoglycemia Enoxaparin Sodium (Lovenox) 40 mg SC DAILY@0600 [facility] Last Admin: 10/19/18 07:01 Dose: 40 mg Fentanyl (Duragesic Patch) 25 mcg TRANSDERM. Q3D [facility] Last Admin: 10/16/18 17:18 Dose: 25 mcg Glucagon () 1 mg IM .X1 PRN PRN Reason: Hypoglycemia Glucagon () 1 mg IM .X1 PRN PRN Reason: Hypoglycemia Glyburide (Micronase) 10 mg PO DAILY@0800 [facility] Last Admin: 10/19/18 08:16 Dose: 10 mg Hydrochlorothiazide (Hctz) 25 mg PO DAILY [facility] Last Admin: 10/19/18 08:16 Dose: 25 mg Insulin Glargine (Lantus (Bkc)) 20 units SC QHS [facility] Last Admin: 10/18/18 20:29 Dose: 20 units Insulin Human Lispro (Humalog Kwikpen (Bkc)) 0 unit SC [facility]; Protocol Last Admin: 10/19/18 06:56 Dose: Not Given Lisinopril (Zestril) 40 mg PO DAILY [facility] Last Admin: 10/19/18 08:16 Dose: 40 mg Lorazepam (Ativan) 1 mg PO QHS PRN PRN PRN Reason: INSOMNIA Last Admin: 10/19/18 00:25 Dose: 1 mg Magnesium Hydroxide (Milk Of Magnesia) 30 ml PO .PRN X 1 PRN PRN Reason: Constipation Last Admin: 10/16/18 20:15 Dose: 30 ml Melatonin (Melatonin) 5 mg PO QHS PRN PRN PRN Reason: SLEEP Last Admin: 10/18/18 20:31 Dose: 5 mg Meloxicam (Mobic) 7.5 mg PO BID [facility] Last Admin: 10/19/18 08:16 Dose: 7.5 mg Metformin [facility] (Glucophage) [facility] Last Admin: 10/19/18 08:16 Dose: 500 mg Methocarbamol (Robaxin) 500 mg PO BID [facility] Last Admin: 10/19/18 08:16 Dose: 500 mg Potassium Chloride (K-Dur) 20 meq PO BIDCM [facility] Last Admin: 10/19/18 08:16 Dose: 20 meq Pravastatin Sodium (Pravachol) 10 mg PO QHS [facility] Last Admin: 10/18/18 20:28 Dose: 10 mg Senna/Docusate Sodium (Senokot-S, Jyoti-Colace) 2 tablet PO BID [facility] Last Admin: 10/19/18 08:16 Dose: 2 tablet Discharge Diet: 2000 Calorie Control Diet, Carb Control Diet Discharge Activity: May Not Drive, May not drive while taking narcotic pain medications., May Not Shower, Use Walker, - - Do not soak in a tub bath until cleared by Surgeon Weight Bearing Status: Weight bearing as tolerated Call your doctor if your incision/area has: Increased Pain/ Swelling, Increased Redness, Foul Smelling Discharge, Swelling at the incision site Call your doctor if you observe: Fever of 101 or Higher, Coldness, Increased Pain, Numbness or Tingling, Change in Color, Inability to urinate, Inability to have a bowel movement, Using more than one pad per hour, Shortness of breath, Dizziness, Fainting spells, Swelling in the ankles, Chest pain, Prolonged hiccoughing, Increased palpitations (irregular heartbeat), Calf discomfort, Uncontrolled pain Home Medications: Medications to take at Discharge RX: Lisinopril [Zestril] 40 mg PO DAILY 02/20/16 pravastatin 10 mg tablet 10 mg PO DAILY 09/15/18 RX: Meloxicam [Mobic] 7.5 mg PO BID 10/02/18 RX: glyBURIDE [Micronase] 10 mg PO DAILY@0800 10/02/18 RX: Hydrochlorothiazide [Hctz] 25 mg PO DAILY 10/04/18 RX: Aspirin E.C. [Ecotrin] 81 mg PO DAILYCM #30 tablet 10/19/18 RX: Atenolol [Tenormin (beta mary)] 25 mg PO DAILY #60 tablet 10/19/18 RX: Hydrocodone Bitart/Apap 5-325 [[place] 5/325] 2 tab PO Q6H PRN PRN 7 Days #28 tab 10/19/18 RX: Insulin Glargine [Lantus SoloStar Pen] 20 units SC QHS #2 pen 10/19/18 RX: Lorazepam [Ativan] 1 mg PO QHS PRN PRN #21 tab 10/19/18 RX: Melatonin 5 mg PO QHS PRN PRN #60 tablet 10/19/18 RX: Metformin HCl [Glucophage] 500 mg PO BIDCM tablet 10/19/18 RX: Methocarbamol [Robaxin] 500 mg PO BID #60 tablet 10/19/18 RX: Potassium Chloride [K-Dur] 20 meq PO BIDCM #60 tablet 10/19/18 RX: fentaNYL patch [Duragesic patch] 25 mcg TRANSDERM. Q3D 6 Days #2 patch 10/19/18 Following Prescrptions Were Given to Patient: RX: Hydrocodone Bitart/Apap 5-325 [[place] 5/325] 2 tab PO Q6H PRN PRN 7 Days #28 tab PRN Reason: Severe Pain (-08/09) RX: Aspirin E.C. [Ecotrin] 81 mg PO DAILYCM #30 tablet RX: Atenolol [Tenormin (beta mary)] 25 mg PO DAILY #60 tablet RX: fentaNYL patch [Duragesic patch] 25 mcg TRANSDERM. Q3D 6 Days #2 patch RX: Insulin Glargine [Lantus SoloStar Pen] 20 units SC QHS #2 pen RX: Lorazepam [Ativan] 1 mg PO QHS PRN PRN #21 tab PRN Reason: Insomnia RX: Melatonin 5 mg PO QHS PRN PRN #60 tablet PRN Reason: SLEEP RX: Methocarbamol [Robaxin] 500 mg PO BID #60 tablet RX: Potassium Chloride [K-Dur] 20 meq PO BIDCM #60 tablet Primary Care Physician: Lucretia Lorenzana [Primary Care Provider] - Please Follow Up With: [facility] Please Follow Up With: Lucretia Mchugh Please Follow Up With: Dr. Aida Choi Disposition: Home with Home Health Minutes spent on discharge:: 40 Patient Condition:: Good Rehab Course The patient is a 68 year old right handed female who is admitted to the inpatient rehab unit for rehabilitation after she sustained a right bimalleolar fracture due to mechanical fall, she underwent an ORIF with Dr. Aida Choi on 10/03, with no complications noted post-op. She has a PMH of HTN, HLD, and DM type II, her blood sugars normally run in the 200s to 300s. She recently had an increase in her insulin dosage by her PCP a week ago. She lives alone, in a mobile home and has a ramp to get into the home. She was previously completely functionally independent and is admitted to the rehab unit in order to restore her previous level of functional independence. While in the Rehab unit (RU) her other medical conditions were monitored. While in the RU she improved with therapy and gained strength. Her stay during that time was uncomplicated and she was able to be discharged home on 10/19/18 to complete the remainder of her care as an outpatient. Summary of care: Debility s/p right bimalleolar ankle fracture/ORIF of right ankle, complicated by Osteoarthritis in her left hip, HTN, HLD, and DM II. Goal of rehab is mosque of functional independence. Plan: - Physical therapy for gait and balance - Occupational Therapy for ADLs - As needed analgesics - Bowel protocol - DVT prophylaxis: SCDs, ASA, Lovenox - Hypertension: Stable with good control, continue HCTZ, and Lisinopril, with dose adjustment as needed - Diabetes type 2 => Controlled ON oral hypoglycemics in addition to long acting insulin, Accu-Cheks a.c. and at bedtime and covered with sliding scale insulin - Right ankle ORIF- Cast dry, clean and intact - HLD - continue home dose of Statin - Weight bearing status - non weight bearing on right lower extremity - Acute pain management - Fentanyl patch 25mcq, [place], and Robaxin for muscle spasms in right calf - Fall precautions - AM Hypoglycemia = give a Snack at bed time - Increased pain in R ankle => Notified surgeon, Dr. Zeng - pending results of x-ray of ankle=> showed hardware is aligned, some mild soft tissue swelling in the distal ankle is improved. - Right hip pain - x-ray of hip/pelvic show a normal hip no acute process - The plan is for discharge home with home health to include Physical therapy and Occupational therapy. Summary of Therapy Sessions: With Physical therapy, she is non-weight bearing on right lower extremity, she is supervision to stand and pivot into the wheelchair. With Occupational therapy, she is supervision for grooming and dressing. She is contact guard for showering. She is MOD I with mobility in the wheelchair, and has a ramp for easy access into her home. With Nursing, her pain is still not well controlled despite having [place], a Fentanyl patch, and Robaxin onboard. Her blood sugars are well controlled along with her blood pressure. the plan is to discharge her home on with Home health, to include Physical therapy and Occupational therapy. Meaningful Use Info Meaningful Use Diagnoses (Choose all that apply): None applicable
--- NOTE | 2018-10-19 09:55 | DS.PCM_ITS ---
Rehab Discharge Summary DATE OF ADMISSION: 10/04/18 DATE OF DISCHARGE: 10/19/18 - Rehab Diagnosis Right Ankle Fracture - Physical Exam General: Alert, Oriented x3, Cooperative HEENT: Atraumatic, PERRLA, EOMI, Normocephalic Neck: Supple, No JVD, Negative Carotid Bruits Lungs: Clear to auscultation, Normal air movement Cardiovascular: Regular rate, No murmurs Abdomen: Bowel Sounds Present, Soft, Non Tender Extremities: No edema, Capillary Refill Less than 3 Seconds Skin: No rashes, No breakdown Musculoskeletal: No Tenderness to Palpation of Joints or Extremities Neurological: Cranial nerves II-XII grossly intact Psych/Mental Status: Normal Affect, Appropriate, Alert and oriented to time, place, person, mood and affect Vital Signs Temp Pulse Resp BP Pulse Ox 97.9 F 86 16 157/68 H 96 10/19/18 07:45 10/19/18 07:45 10/19/18 07:45 10/19/18 07:45 10/19/18 07:45 Oxygen Delivery Method Room Air Weight: 73.2 kg Body Mass Index (BMI) 28.9 Finger Stick Blood Glucose 77 Intake and Output for Last 24 Hours 10/17/18 10/18/18 10/19/18 23:59 23:59 23:59 Intake Total 760 / 760 240 / 240 Balance 760 / 760 240 / 240 POC Glucose 10/19/18 10/19/18 10/19/18 06:56 04:19 02:42 POC Glucose 95 94 71 10/18/18 10/18/18 10/18/18 20:26 17:00 11:54 POC Glucose 102 83 77 Active Medications Hydrocodone Bitart/Acetaminophen ([place] 5mg-325mg) 2 tablet PO Q6H PRN PRN PRN Reason: SEVERE PAIN (6-10/10) Last Admin: 10/19/18 08:23 Dose: 2 [facility] Admin: 10/19/18 08:16 Dose: 81 mg Atenolol (Tenormin (Beta Mary)) 25 mg PO DAILY [facility] Last Admin: 10/19/18 08:16 Dose: 25 mg Bisacodyl (Dulcolax) 10 mg RECTAL .PRN X 1 PRN PRN Reason: Constipation Dextrose (D50w Syringe) 0 gm IV X1 PRN; Protocol PRN Reason: Hypoglycemia Enoxaparin Sodium (Lovenox) 40 mg SC DAILY@0600 [facility] Last Admin: 10/19/18 07:01 Dose: 40 mg Fentanyl (Duragesic Patch) 25 mcg TRANSDERM. Q3D [facility] Last Admin: 10/16/18 17:18 Dose: 25 mcg Glucagon () 1 mg IM .X1 PRN PRN Reason: Hypoglycemia Glucagon () 1 mg IM .X1 PRN PRN Reason: Hypoglycemia Glyburide (Micronase) 10 mg PO DAILY@0800 [facility] Last Admin: 10/19/18 08:16 Dose: 10 mg Hydrochlorothiazide (Hctz) 25 mg PO DAILY [facility] Last Admin: 10/19/18 08:16 Dose: 25 mg Insulin Glargine (Lantus (Bkc)) 20 units SC QHS [facility] Last Admin: 10/18/18 20:29 Dose: 20 units Insulin Human Lispro (Humalog Kwikpen (Bkc)) 0 unit SC ACHS [facility]; Protocol Last Admin: 10/19/18 06:56 Dose: Not Given Lisinopril (Zestril) 40 mg PO DAILY [facility] Last Admin: 10/19/18 08:16 Dose: 40 mg Lorazepam (Ativan) 1 mg PO QHS PRN PRN PRN Reason: INSOMNIA Last Admin: 10/19/18 00:25 Dose: 1 mg Magnesium Hydroxide (Milk Of Magnesia) 30 ml PO .PRN X 1 PRN PRN Reason: Constipation Last Admin: 10/16/18 20:15 Dose: 30 ml Melatonin (Melatonin) 5 mg PO QHS PRN PRN PRN Reason: SLEEP Last Admin: 10/18/18 20:31 Dose: 5 mg Meloxicam (Mobic) 7.5 mg PO BID [facility] Last Admin: 10/19/18 08:16 Dose: 7.5 mg Metformin [facility]) [facility] Admin: 10/19/18 08:16 Dose: 500 mg Methocarbamol (Robaxin) 500 mg PO BID [facility] Last Admin: 10/19/18 08:16 Dose: 500 mg Potassium Chloride (K-Dur) 20 meq PO BIDCM [facility] Last Admin: 10/19/18 08:16 Dose: 20 meq Pravastatin Sodium (Pravachol) 10 mg PO QHS [facility] Last Admin: 10/18/18 20:28 Dose: 10 mg Senna/Docusate Sodium (Senokot-S, Jyoti-Colace) 2 tablet PO BID [facility] Last Admin: 10/19/18 08:16 Dose: 2 tablet Discharge Diet: 2000 Calorie Control Diet, Carb Control Diet Discharge Activity: May Not Drive, May not drive while taking narcotic pain medications., May Not Shower, Use Walker, - - Do not soak in a tub bath until cleared by Surgeon Weight Bearing Status: Weight bearing as tolerated Call your doctor if your incision/area has: Increased Pain/ Swelling, Increased Redness, Foul Smelling Discharge, Swelling at the incision site Call your doctor if you observe: Fever of 101 or Higher, Coldness, Increased Pain, Numbness or Tingling, Change in Color, Inability to urinate, Inability to have a bowel movement, Using more than one pad per hour, Shortness of breath, Dizziness, Fainting spells, Swelling in the ankles, Chest pain, Prolonged hiccoughing, Increased palpitations (irregular heartbeat), Calf discomfort, Uncontrolled pain Home Medications: Medications to take at Discharge RX: Lisinopril [Zestril] 40 mg PO DAILY 02/20/16 pravastatin 10 mg tablet 10 mg PO DAILY 09/15/18 RX: Meloxicam [Mobic] 7.5 mg PO BID 10/02/18 RX: glyBURIDE [Micronase] 10 mg PO DAILY@0800 10/02/18 RX: Hydrochlorothiazide [Hctz] 25 mg PO DAILY 10/04/18 RX: Aspirin E.C. [Ecotrin] 81 mg PO DAILYCM #30 tablet 10/19/18 RX: Atenolol [Tenormin (beta mary)] 25 mg PO DAILY #60 tablet 10/19/18 RX: Hydrocodone Bitart/Apap 5-325 [[place] 5/325] 2 tab PO Q6H PRN PRN 7 Days #28 tab 10/19/18 RX: Insulin Glargine [Lantus SoloStar Pen] 20 units SC QHS #2 pen 10/19/18 RX: Lorazepam [Ativan] 1 mg PO QHS PRN PRN #21 tab 10/19/18 RX: Melatonin 5 mg PO QHS PRN PRN #60 tablet 10/19/18 RX: Metformin HCl [Glucophage] 500 mg PO BIDCM tablet 10/19/18 RX: Methocarbamol [Robaxin] 500 mg PO BID #60 tablet 10/19/18 RX: Potassium Chloride [K-Dur] 20 meq PO BIDCM #60 tablet 10/19/18 RX: fentaNYL patch [Duragesic patch] 25 mcg TRANSDERM. Q3D 6 Days #2 patch 10/19/18 Following Prescrptions Were Given to Patient: RX: Hydrocodone Bitart/Apap 5-325 [[place] 5/325] 2 tab PO Q6H PRN PRN 7 Days #28 tab PRN Reason: Severe Pain (-08/09) RX: Aspirin E.C. [Ecotrin] 81 mg PO DAILYCM #30 tablet RX: Atenolol [Tenormin (beta mary)] 25 mg PO DAILY #60 tablet RX: fentaNYL patch [Duragesic patch] 25 mcg TRANSDERM. Q3D 6 Days #2 patch RX: Insulin Glargine [Lantus SoloStar Pen] 20 units SC QHS #2 pen RX: Lorazepam [Ativan] 1 mg PO QHS PRN PRN #21 tab PRN Reason: Insomnia RX: Melatonin 5 mg PO QHS PRN PRN #60 tablet PRN Reason: SLEEP RX: Methocarbamol [Robaxin] 500 mg PO BID #60 tablet RX: Potassium Chloride [K-Dur] 20 meq PO BIDCM #60 tablet Primary Care Physician: Lucretia Lorenzana [Primary Care Provider] - Please Follow Up With: [facility] Please Follow Up With: Lucretia Mchugh Please Follow Up With: Dr. Aida Choi Disposition: Home with Home Health Minutes spent on discharge:: 40 Patient Condition:: Good Rehab Course The patient is a 68 year old right handed female who is admitted to the inpatient rehab unit for rehabilitation after she sustained a right bimalleolar fracture due to mechanical fall, she underwent an ORIF with Dr. Aida Choi on 10/03, with no complications noted post-op. She has a PMH of HTN, HLD, and DM type II, her blood sugars normally run in the 200s to 300s. She recently had an increase in her insulin dosage by her PCP a week ago. She lives alone, in a mobile home and has a ramp to get into the home. She was previously completely functionally independent and is admitted to the rehab unit in order to restore her previous level of functional independence. While in the Rehab unit (RU) her other medical conditions were monitored. While in the RU she improved with therapy and gained strength. Her stay during that time was uncomplicated and she was able to be discharged home on 10/19/18 to complete the remainder of her care as an outpatient. Summary of care: Debility s/p right bimalleolar ankle fracture/ORIF of right ankle, complicated by Osteoarthritis in her left hip, HTN, HLD, and DM II. Goal of rehab is sabianist of functional independence. Plan: - Physical therapy for gait and balance - Occupational Therapy for ADLs - As needed analgesics - Bowel protocol - DVT prophylaxis: SCDs, ASA, Lovenox - Hypertension: Stable with good control, continue HCTZ, and Lisinopril, with dose adjustment as needed - Diabetes type 2 => Controlled ON oral hypoglycemics in addition to long acting insulin, Accu-Cheks a.c. and at bedtime and covered with sliding scale insulin - Right ankle ORIF- Cast dry, clean and intact - HLD - continue home dose of Statin - Weight bearing status - non weight bearing on right lower extremity - Acute pain management - Fentanyl patch 25mcq, [place], and Robaxin for muscle spasms in right calf - Fall precautions - AM Hypoglycemia = give a Snack at bed time - Increased pain in R ankle => Notified surgeon, Dr. Zeng - pending results of x-ray of ankle=> showed hardware is aligned, some mild soft tissue swelling in the distal ankle is improved. - Right hip pain - x-ray of hip/pelvic show a normal hip no acute process - The plan is for discharge home with home health to include Physical therapy and Occupational therapy. Summary of Therapy Sessions: With Physical therapy, she is non-weight bearing on right lower extremity, she is supervision to stand and pivot into the wheelchair. With Occupational therapy, she is supervision for grooming and dressing. She is contact guard for showering. She is MOD I with mobility in the wheelchair, and has a ramp for easy access into her home. With Nursing, her pain is still not well controlled despite having [place], a Fentanyl patch, and Robaxin onboard. Her blood sugars are well controlled along with her blood pressure. the plan is to discharge her home on with Home health, to include Physical therapy and Occupational therapy. Meaningful Use Info Meaningful Use Diagnoses (Choose all that apply): None applicable
[2018-10-19 09:56] VITALS: BP 157/68; PULSE 86; RESP 16; TEMP 36.4; O2SAT 96
--- NOTE | 2018-10-19 09:57 | DCINST_ITS ---
- Discharge Diagnoses Current Active Problems: Current Active and Chronic Problems (Last Reviewed 09/15/18 @ 08:34 by Harshal Chung MD) Other specified noninfective disorders of lymphatic vessels and lymph nodes (Acute) Localized edema (Acute) Bimalleolar fracture of right ankle (Acute) Reason(s) for Visit for Discharge Instructions: Right Ankle Fracture You will use the following diet at home:: Calorie/Carbohydrate Controlled (specify 1200, 1400, etc), Cardiac Your food should be the consistency of: Regular Your liquids should be the consistency of: Regular/Thin Discharge Activity: May Not Drive, May not drive while taking narcotic pain medications., May Not Shower, Use Walker, - - Do not soak in a tub bath until cleared by Surgeon Weight Bearing Status: Weight bearing as tolerated Call your doctor if your incision/area has: Increased Pain/ Swelling, Increased Redness, Foul Smelling Discharge, Swelling at the incision site Call your doctor if you observe: Fever of 101 or Higher, Coldness, Increased Pain, Numbness or Tingling, Change in Color, Inability to urinate, Inability to have a bowel movement, Using more than one pad per hour, Shortness of breath, Dizziness, Fainting spells, Swelling in the ankles, Chest pain, Prolonged hiccoughing, Increased palpitations (irregular heartbeat), Calf discomfort, Uncontrolled pain Allergies/Adverse Reactions: Allergies No Known Drug Allergies Allergy (Unknown, Verified 10/02/18 10:19) Other Medications to take at Discharge Lisinopril [Zestril] 40 mg PO DAILY 02/20/16 pravastatin 10 mg tablet 10 mg PO DAILY 09/15/18 Meloxicam [Mobic] 7.5 mg PO BID 10/02/18 glyBURIDE [Micronase] 10 mg PO DAILY@0800 10/02/18 Hydrochlorothiazide [Hctz] 25 mg PO DAILY 10/04/18 Aspirin E.C. [Ecotrin] 81 mg PO DAILYCM #30 tablet 10/19/18 Atenolol [Tenormin (beta davi)] 25 mg PO DAILY #60 tablet 10/19/18 Hydrocodone Bitart/Apap 5-325 [[place] 5/325] 2 tab PO Q6H PRN PRN 7 Days #28 tab 10/19/18 Insulin Glargine [Lantus SoloStar Pen] 20 units SC QHS #2 pen 10/19/18 Lorazepam [Ativan] 1 mg PO QHS PRN PRN #21 tab 10/19/18 Melatonin 5 mg PO QHS PRN PRN #60 tablet 10/19/18 Metformin HCl [Glucophage] 500 mg PO BIDCM tablet 10/19/18 Methocarbamol [Robaxin] 500 mg PO BID #60 tablet 10/19/18 Potassium Chloride [K-Dur] 20 meq PO BIDCM #60 tablet 10/19/18 fentaNYL patch [Duragesic patch] 25 mcg TRANSDERM. Q3D 6 Days #2 patch 10/19/18 The following prescriptions were given: Hydrocodone Bitart/Apap 5-325 [[place] 5/325] 2 tab PO Q6H PRN PRN 7 Days #28 tab PRN Reason: Severe Pain (-08/09) Aspirin E.C. [Ecotrin] 81 mg PO DAILYCM #30 tablet Atenolol [Tenormin (beta davi)] 25 mg PO DAILY #60 tablet fentaNYL patch [Duragesic patch] 25 mcg TRANSDERM. Q3D 6 Days #2 patch Insulin Glargine [Lantus SoloStar Pen] 20 units SC QHS #2 pen Lorazepam [Ativan] 1 mg PO QHS PRN PRN #21 tab PRN Reason: Insomnia Melatonin 5 mg PO QHS PRN PRN #60 tablet PRN Reason: SLEEP Methocarbamol [Robaxin] 500 mg PO BID #60 tablet Potassium Chloride [K-Dur] 20 meq PO BIDCM #60 tablet Primary Care Physician: Ashish Mchugh,Lucretia Whalen [Primary Care Provider] - Test Results: Test results from this visit will be discussed in further detail at your follow- up appointment, if applicable. Please Follow Up With: [facility] Please Follow Up With: Lucretia Whalen [facility] Please Follow Up With: Dr. Aida Choi Proposed Discharge Date: 10/19/18
--- NOTE | 2018-10-19 11:05 | NURSING ---
[facility] AND REESE LEFT TO CALL US BACK.
[2018-10-19 12:00] LABS: Bedside Glucose 123 mg/dL (70-110)
--- NOTE | 2018-10-19 12:49 | NURSING ---
Went over discharge instructions, medication and appts with pt. pt verbalized understanding. Will be discharging home with daughter.
== END 2018-10-19 14:30 | disposition home health service (06) | DRG 561 ==
PROVIDERS: Hospitalist; Internal Medicine; Admitting Provider Psychiatry & Neurology Neurology; Referring Provider Psychiatry & Neurology Neurology; Visit Provider Internal Medicine
DX: S82.841D Displaced bimalleolar fracture of right lower leg, subsequent encounter for closed fracture with routine healing (principal); W18.30XD Fall on same level, unspecified, subsequent encounter; E78.5 Hyperlipidemia, unspecified; I10 Essential (primary) hypertension; E11.9 Type 2 diabetes mellitus without complications; M16.12 Unilateral primary osteoarthritis, left hip
CPT/HCPCS: 36415; 73502; 73610; 80053; 82962; 85025; 97110; 97162; 97166; 97530; 97535; 97542; 97802

== ENCOUNTER → 2018-12-15 12:44 | Outpatient (CLI) | payer MEDICARE, MEDICAID, SELFPAY ==
[2018-10-04 15:28] VITALS: BMI 28.9
[2018-12-15 13:50] LABS: Hemoglobin A1c 8.1 % (4.2-6.3)
== END ==
PROVIDERS: Referring Provider Podiatrist Foot & Ankle Surgery; Visit Provider Podiatrist Foot & Ankle Surgery
DX: E11.69 Type 2 diabetes mellitus with other specified complication (principal)
CPT/HCPCS: 36415; 83036

== ENCOUNTER → 2019-04-24 | Outpatient (CLI) | payer MEDICARE, SELFPAY ==
[2018-10-04 15:28] VITALS: BMI 28.9
[2019-04-24 15:30] LABS: Hemoglobin A1c 11.4 % (4.2-6.3)
== END | disposition home or self-care (01) ==
PROVIDERS: Referring Provider Podiatrist Foot & Ankle Surgery; Visit Provider Podiatrist Foot & Ankle Surgery
DX: E11.69 Type 2 diabetes mellitus with other specified complication (principal)
CPT/HCPCS: 36415; 83036

== ENCOUNTER → 2019-09-20 13:26 | Outpatient (CLI) | payer MEDICARE, SELFPAY ==
[2018-10-04 15:28] VITALS: BMI 28.9
--- NOTE | 2019-09-20 19:01 | NEURO ---
NCS and/or EMG Patient Report HPI: Patient is a 69-year-old female presented with pain, numbness and tingling of both hands, left hand worse, since last year but getting worse. Pain in her hand and wrist radiates up to her elbow and into her shoulder. Patient had a fall in August last year where she broke her ankle. She might have injured her hand causing increased numbness. Patient denies any neck injury but has history of diabetes. Physical Exam: Tenderness noted in both anterior wrist areas. Tinel's signs mildly positive at both wrist areas. Mild thenar and hypothenar weakness noted. Mild sensory deficits noted in both hand fingers. Findings: 1. There is prolongation of distal latencies of right and left median sensory nerve responses. 2. There is prolongation of distal latencies of right and left ulnar sensory nerve responses. 3. There is a prolongation of distal latencies of left and right median motor nerve responses with decreased nerve conduction velocities. 4. Normal needle examination of bilateral right and left upper extremities muscles except decreased recruitment in abductor pollicis brevis, abductor digiti minimi and first dorsal interossei muscles. Impression: 1. Findings are consistent with moderately severe median mononeuropathies in both hands sec to carpal tunnel syndrome. 2. Findings are also consistent with mild right and left ulnar sensory neuropathy. Recommendation: 1. Patient recommended to wear right and left hand and elbow splints as much as possible. 2. Patient recommended to avoid repetitive right and left hand movements and heavy lifting as well as leaning or sleeping on elbows. 3. Patient may need surgical release of both hand carpal tunnel syndromes if symptoms does not improve.
== END ==
PROVIDERS: Family Provider Internal Medicine; PCP Internal Medicine; Referring Provider Physician Assistant Surgical; Visit Provider Physician Assistant Surgical
DX: R20.2 Paresthesia of skin (principal)
CPT/HCPCS: 95886; 95911

== ENCOUNTER → 2019-09-26 14:38 | Outpatient (CLI) | payer MEDICARE, SELFPAY ==
[2018-10-04 15:28] VITALS: BMI 28.9
--- NOTE | 2019-09-26 14:42 | VDUE_ITS ---
Reason For Study: swelling Right Proximal Left Proximal Right subclavian vein is spontaneous, widely Left jugular vein is spontaneous, widely patent, phasic, with no intraluminal patent, phasic, with no intraluminal echogenicity noted. echogenicity noted. Left subclavian vein is spontaneous, widely patent, phasic, with no intraluminal echogenicity noted. Left Arm Left axillary vein is spontaneous, patent, phasic, competent, compressible and demonstrates augmentation. Left brachial vein is compressible. Left cephalic vein is compressible. Left basilic vein is compressible. Left Lower Arm Left radial vein is compressible. Left ulnar vein is compressible. Patient Safety Prelim faxed to [facility] Grupo Vargas PA-C @ [phone] @ 3:10 pm. Interpretation Summary Deep veins of the left upper extremity are patent and compressible segmentally. There is no evidence of deep vein thrombosis. The superficial veins of the left upper extremity, the basilic and cephalic veins, appear patent and compressible. There is no evidence of left upper extremity superficial thrombophlebitis involving the veins imaged. Ordering Physician: Grupo Vargas Referring Physician: Pauline Vann Performed By: Britany King RDCS, RVT ?
[2019-09-26 16:29] LABS: Absolute Lymphocyte Count 2.05 X10^3/uL (0.83-4.51); Absolute Neutrophil Count 4.6 X10^3/uL (2.0-7.7); Basophil# 0.01 X10^3/uL; Basophil% 0.1 % (0-1); Eosinophil# 0.16 X10^3/uL; Eosinophils% 2.2 % (0-5); Hematocrit 38.3 % (37-47); Hemoglobin 12.3 g/dL (12.0-15.0); Lymphocyte # 2.05 X10^3/ul (4.0); Lymphocyte % 28.4 % (19-41); Mean Corp Hgb Conc 32.1 g/dL (32-36); Mean Corpuscular Hgb 28.5 pg (27.0-32.0); Mean Corpuscular Volume 88.7 fL (81-99); Mean Platelet Vol. 11.1 fl (6.2-12.0); Monocyte# 0.39 X10^3/uL; Monocyte% 5.4 % (0-10); NRBC Flagged by Analyzer 0 % (0-5); Neutrophil % 63.6 % (47-70); Platelet Count 268 K/mm3 (150-450); RBC Distribution Width CV 12.7 % (11.6-14.6); RBC Distribution Width SD 41.4 fl (35.1-43.9); Red Blood Count 4.32 M/mm3 (4.2-5.4); White Blood Count 7.2 K/mm3 (4.4-11.0)
[2019-09-26 16:58] LABS: Hemoglobin A1c 10.4 % (4.2-6.3)
== END ==
PROVIDERS: Family Provider Internal Medicine; PCP Internal Medicine; Referring Provider Physician Assistant Surgical; Visit Provider Physician Assistant Surgical
DX: R22.32 Localized swelling, mass and lump, left upper limb (principal); I10 Essential (primary) hypertension; E11.69 Type 2 diabetes mellitus with other specified complication; G56.02 Carpal tunnel syndrome, left upper limb; M79.622 Pain in left upper arm
CPT/HCPCS: 36415; 83036; 85025; 93971

== ENCOUNTER → 2020-03-31 | Outpatient (CLI) | payer MEDICAID, MEDICARE, SELFPAY ==
[2018-10-04 15:28] VITALS: BMI 28.9
--- NOTE | 2020-03-31 09:57 | RAD_ITS ---
STUDY: X-RAY - CERVICAL SPINE REASON FOR EXAM: Female, 69 years old. PAIN AND NUMBNESS BILAT ARMS TECHNIQUE: 5 view(s) of the cervical spine were obtained. COMPARISON: None FINDINGS: Normal anterior atlantoaxial articulation. Normal odontoid process. Normal cervical lordosis. There is multi-level endplate spondylosis. There is multi-level degenerative disc disease with multilevel disc space narrowing. There is multi-level osseous foraminal stenosis. The soft tissue structures are unremarkable. RAD/Cerv Spine 4 or 5 Views IMPRESSION: No fracture. Multilevel degenerative disc disease and spondylosis with bilateral neural foraminal narrowing. Electronically Signed: Eduardo Rehman MD at 16:57 EDT , Service support ,
== END | disposition home or self-care (01) ==
PROVIDERS: PCP Internal Medicine; Referring Provider Anesthesiology Pain Medicine; Visit Provider Anesthesiology Pain Medicine
DX: M54.2 Cervicalgia (principal); M79.603 Pain in arm, unspecified
CPT/HCPCS: 72050